=== PATIENT | male | born 1960 | race African-American/Black ===

== ENCOUNTER → 2016-07-06 | Outpatient (CLI) | payer OTHER ==
[~2016-07-06] VITALS: Ht 177.8 cm; Wt 111.1 kg
[~2016-07-06] MED LIST: ARTIFICIAL TEA1 EACH OP; ASPIR 8181 MG PO; CARBIDOPA-LEVO1 EAC2 PO; CLEOCIN HCL150 MG PO; COLACE100 MG PO; DENIES; DOLOPHINE HCL10 MG PO; DOXYCYCLINE 10100 MG PO; EYE OPHTHALMIC; FERREX 150 FORT1 CAP PO; FLEXERIL PO; GONAK OPHTHALMIC; IBUPROFEN 600600 M1 PO; LASIX 40 MG TAB40 M2 PO; LEVAQUIN 500 M500 M2 PO; METHADOSE10 MG PO; METOLAZONE 5 MG5 MG PO; MIRALAX17 GM PO; MORPHINE SULFAT15 MG PO; NEURONTIN 300300 M1 PO; NORCO 5-325 TA1 EACH PO; OXYCODONE HCL 55 MG PO; OXYCODONE HCL10 MG PO; PERCOCET 10-321 EACH PO; PERCOCET 5-3251 EACH PO; PERCOCET PO; REFRESH OPTIVE1 EACH OP; REFRESH TEARS15 ML; REFRESH TEARS15 ML OP; SENNA PO; SILVADENE20 GM TP; SSD CREAM 1% 5050 GM TOP; TYLENOL325 MG PO
--- NOTE | ~2016-07-06 | HPC ---
[facility] [place] [address] PAIN MANAGEMENT CONSULTATION Name: PANCHO STILL Room #: REG TIANNA Andrea#: [id number] Admission: 07/06/16 Attend Phys: Dodie Ovalles MD Discharge: Date of : 60 Report #: [id number] THIS REPORT FOR: //name// CC: [facility] physician/PCP Patrick Fernandez MD DATE OF SERVICE: 07/06/2016 FOLLOWUP COMPLAINT: "I fell in the bathroom." FOLLOWUP HISTORY: The patient is a 56-year-old gentleman who has been followed in the pain clinic because of chronic pain in his lower extremities with swelling and inflammation. The patient has been followed in the wound clinic because of lymphedema. He finds that ambulation and activity can be quite problematic. He feels that his current regimen of OxyIR 10 mg 1 p.o. t.i.d. has been quite helpful. He also finds that OxyIR 5 mg tablets have been helpful as well. He continues to require assistance at home. He ambulates in a wheelchair. The patient states that he stood up in the bathroom and lost his balance. He fell backwards and hit his back. Imaging of the back area showed a compression fracture. He feels that things are going reasonably well at this juncture, but still has some pain and discomfort in this area secondary to that recent trauma. PHYSICAL EXAMINATION: GENERAL: The patient is alert. EXTREMITIES: He continues to have significant swelling in his lower extremities, left and right. There is evidence of lymphedema. He states that he continues to be followed by the wound care facility. IMPRESSION: 1. Chronic ulcers bilaterally in the lower extremities. 2. Lymphedema, chronic. 3. History of venous insufficiency. 4. Recent fall with a compression fracture in the lumbar area. RECOMMENDATIONS: We discussed treatment options with the patient. At this juncture, we will continue with his current medical regimen. A script for oxycodone 10 mg tablets 1 p.o. t.i.d. and OxyIR 5 mg 1 tablet p.r.n. were dispensed. The patient continues with his usual medications as well. We have recommended that the patient get a bicycle helmet. He should consider wearing this at home when he is up and when he feels somewhat stable. He should consider wearing it, especially when in the bathroom. There are numerous hard surfaces on which to fall. He states that that was a good idea and that he would get a helmet and wear it during those [place] [address] PAIN MANAGEMENT CONSULTATION Name: PANCHO STILL Room #: REG CL Emre#: [id number] Admission: 07/06/16 Attend Phys: Dodie Ovalles MD Discharge: Date of : 60 Report #: [id number] We would like to thank you for letting us participate in his care. We hope he continues to improve. <ELECTRONICALLY SIGNED> By: Dodie Ovalles MD 07/24/16 1018 1233 1744 Dodie Ovalles MD /nt
[2016-07-06 08:45] VITALS: BP 133/81
== END | disposition home or self-care (01) ==
LOC: PAIN 07-03 07:13
DX: L97.919 Non-pressure chronic ulcer of unspecified part of right lower leg with unspecified severity (principal); L97.929 Non-pressure chronic ulcer of unspecified part of left lower leg with unspecified severity; I89.0 Lymphedema, not elsewhere classified; Z87.81 Personal history of (healed) traumatic fracture; Z86.718 Personal history of other venous thrombosis and embolism

== ENCOUNTER → 2016-10-05 | Outpatient (CLI) | payer OTHER ==
[~2016-10-05] VITALS: Ht 177.8 cm; Wt 111.1 kg
--- NOTE | ~2016-10-05 | HPC ---
[facility] [place] [address] [address] PAIN MANAGEMENT CONSULTATION Name: PANCHO STILL [id number] Admission: 10/05/16 Attend Phys: Dodie Ovalles MD Discharge: Date of : 60 Report #: [id number] THIS REPORT FOR: //name// CC: [facility] physician/PCP Patrick De León III DO Dodie Hayes MD DATE OF SERVICE: 10/05/2016 FOLLOWUP COMPLAINT: Things are going pretty good. FOLLOWUP HISTORY: The patient is a 56-year-old gentleman who has a misfortune of having Parkinson's disease. He is almost wheelchair bound. He finds that the OxyIR continue to be helpful. He continues to work with the wound clinic to help with his lymphedema in the lower extremities. He feels that the OxyIR 10 mg tablets are helpful. He feels that he would like to keep this amount of OxyIR the same, but instead of having 10 mg tablets he would like to have more of them in the 5 mg range. He feels that that is more beneficial for the level of activity he is participating in. PHYSICAL EXAMINATION: GENERAL: The patient is in a wheelchair. Blood pressure 152/96, pulse 79, respiratory rate 16, room air saturation is 99%. Height is 5 feet 10 inches, weight 111 kilograms, BMI is 35.2. IMPRESSION: 1. Chronic ulcers bilateral in the lower extremities with lymphedema, followed by the wound clinic. 2. He feels that his head is getting more difficult to control. Oftentimes, the neck muscles get relaxed - we discussed the possibility of a soft support around his neck. We explained that neck supports could, over a period of time, worsen the condition because if you wear them too long muscles start to weaken and would possibly exacerbate his problem. He would give it some thought. 3. History of venous insufficiency. 4. History of fall in June with resultant of a compression fracture in the lumbar area. RECOMMENDATIONS: We have written the patient's oxycodone. We will provide a total of 40 mg OxyIR 1 tablet p.r.n. q. 6 hours as well as an OxyIR 10 mg 1 p.o. b.i.d. to t.i.d. p.r.n. for a total of 70. We would like to thank you for letting us participate in his care. We hope he continues to improve. By: 1255 1744 Dodie Ovalles MD /alexandro
[2016-10-05 09:58] VITALS: BP 152/96
== END ==
LOC: PAIN 06:46
DX: L97.829 Non-pressure chronic ulcer of other part of left lower leg with unspecified severity (principal); L97.819 Non-pressure chronic ulcer of other part of right lower leg with unspecified severity; I87.2 Venous insufficiency (chronic) (peripheral); Z91.81 History of falling

== ENCOUNTER 2016-10-24 09:43 | Emergency (ER) | payer OTHER ==
[~2016-10-24] VITALS: Ht 177.8 cm; Wt 111.1 kg
--- NOTE | ~2016-10-24 | EKG ---
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
[2016-10-24 10:21] LABS: ABSOLUTE NEUTROPHILS 2.5 thou/uL (1.4-8.2); EOSINOPHILS 2.7 % (0.0-3.0); HEMATOCRIT 39.9 % (42.0-52.0); HEMOGLOBIN 13.2 gm/dL (14.0-18.0); LYMPHOCYTES 32.1 % (24.0-44.0); MCH 28.5 pg (26.0-34.0); MCV 86.5 fL (80.0-100.0); MONOCYTES 10.2 % (1.0-8.0); PLATELET COUNT 218 thou/uL (150-400); RBC 4.62 mil/uL (4.50-6.00); RDW 15.4 % (10.5-14.5); WBC 4.6 thou/uL (4.0-11.0)
[2016-10-24 10:22] LABS: MANUAL DIFF NO
[2016-10-24 10:24] LABS: ANION GAP 5 mmol/L (7-16); BUN 6 mg/dL (7-18); CALCIUM 8.5 mg/dL (8.5-10.1); CHLORIDE 107 mmol/L (98-107); CO2 28 mmol/L (21-32); CREATININE 0.9 mg/dL (0.7-1.3); GLUCOSE 86 mg/dL (74-106); SODIUM 140 mmol/L (136-145)
[2016-10-24 10:27] LABS: POTASSIUM 4.6 mmol/L (3.5-5.1)
[2016-10-24 10:31] LABS: ALBUMIN 2.9 g/dL (3.4-5.0); ALKALINE PHOSPHATASE 80 U/L (46-116); SGOT 23 U/L (15-37); SGPT 19 U/L (30-65); TOTAL BILIRUBIN 0.5 mg/dL (<0.1-1.0); TOTAL PROTEIN 7.3 g/dL (6.4-8.2); TROPONIN-I < 0.04 ng/mL (<0.04-0.07)
[2016-10-24 13:16] LABS: URINE BILIRUBIN NEGATIVE (Negative); URINE BLOOD TRACE (Negative); URINE COLOR YELLOW; URINE GLUCOSE-RANDOM* NEGATIVE (Negative); URINE KETONES NEGATIVE (Negative); URINE NITRITE NEGATIVE (Negative); URINE PROTEIN (DIPSTICK) NEGATIVE (Negative); URINE UROBILINOGEN 0.2 E.U./dl (0.2-1.0)
[2016-10-24] MEDS ORDERED: PERCOCET PO ×2 (13:24→13:33)
== END 2016-10-24 14:00 | disposition home or self-care (01) ==
LOC: ER 09:43
PROVIDERS: Physician Assistant
DX: S39.012A Strain of muscle, fascia and tendon of lower back, initial encounter (principal); R53.1 Weakness; W06.XXXA Fall from bed, initial encounter; Y93.89 Activity, other specified; Y92.89 Other specified places as the place of occurrence of the external cause; Y99.8 Other external cause status

== ENCOUNTER → 2016-11-16 | Outpatient (CLI) | payer OTHER ==
[~2016-11-16] VITALS: Ht 177.8 cm; Wt 111.1 kg
--- NOTE | ~2016-11-16 | HPC ---
[facility] [address] [address] PAIN MANAGEMENT CONSULTATION Name: PANCHO STILL Room #: REG TIANNA MorrisLamontMeghannLamont#: [id number] Admission: 11/16/16 Attend Phys: Dodie Ovalles MD Discharge: Date of : 60 Report #: [id number] THIS REPORT FOR: //name// CC: Patrick Issa DATE OF SERVICE: 11/16/2016 FOLLOWUP HISTORY: The patient is a very pleasant gentleman who is 56 years old. He suffers as you recall from Parkinson's disease. He finds that his medications of OxyIR have been quite helpful. It enables him to move and get around with reasonable comfort compared to the pain he was experiencing prior to its use. He states that the pain medications were not causing any problems with his mentation. He has not had any problem with his bowel or bladder as a result of its use. He feels that things are helped. He continues to be wheelchair bound. He has not fallen since we saw him last. PHYSICAL EXAMINATION: Blood pressure is 138/91, pulse 79, respiratory rate 16, room air saturation 97%. Height 5 feet 10 inches, weight 111 kilograms. BMI is 35.2. The patient does need help with standing. He ambulates in his motorized wheelchair. IMPRESSION: 1. Chronic lymphedema in the lower extremities. The patient states that he is not going to the wound clinic at this point, things have improved. 2. History of venous insufficiency. 3. 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 4. History of a fall in June with compression fracture in the lumbar area. RECOMMENDATIONS: A script for the patient's OxyContin has been written. He will continue with his use of oxycodone IR 10 mg 1 p.o. b.i.d. to t.i.d. He will call us if he has any problems with his medications. We would like to thank you for letting us participate in his care. A script for OxyIR 5 mg 1 p.o. q. 6 hours p.r.n. has also been written. We would like to thank you for letting us participate in his care. We hope he continues to improve. By: [id number] 2347 Dodie Ovalles MD /alexandro
[2016-11-16 08:21] VITALS: BP 138/91
== END | disposition home or self-care (01) ==
LOC: PAIN 06:32
DX: G20 Parkinson's disease (principal); I89.0 Lymphedema, not elsewhere classified; M48.56XG Collapsed vertebra, not elsewhere classified, lumbar region, subsequent encounter for fracture with delayed healing

== ENCOUNTER 2016-11-29 06:50 | Inpatient (IN) | payer OTHER ==
[~2016-11-29] VITALS: Ht 177.8 cm; Wt 111.1 kg
--- NOTE | ~2016-11-29 | HC ---
[facility] [place] [address] CONSULTATION Name: PANCHO STILL Room #: 539-P [facility] IN M.R.#: [id number] Admission: 11/30/16 Attend Phys: Cecil Krueger MD Discharge: Date of : 60 Report #: [id number] THIS REPORT FOR: //name// CC: Cecil Garrett DATE OF SERVICE: 11/30/2016 HISTORY OF PRESENT ILLNESS: This is a 56-year-old male patient who is familiar to our service and has been followed by Dr. Hayes in the past. He was admitted to the hospital with persistent and worsening swelling of his lower extremities. He has a history of Parkinson's disease and bilateral lower extremity lymphedema. We have been asked to see him for ongoing evaluation and treatment of that. He denies any open ulceration at this time. PAST MEDICAL HISTORY: Positive for history of Parkinson's disease. He has a history of eyffydag-tg-wzcipq protein calorie malnutrition and chronic lymphedema. MEDICATIONS: Include oxycodone, carbidopa/levodopa, enoxaparin, furosemide, hydrocodone, oxycodone, fentanyl, ondansetron. ALLERGIES: To MORPHINE. SOCIAL HISTORY: Negative for alcohol or tobacco use. FAMILY HISTORY: Noncontributory. REVIEW OF SYSTEMS: CONSTITUTIONAL: No fever, chills, weight loss. NEUROLOGICAL: The patient denies any new changes. He does have moderate to severe Parkinson's. ENT: The patient denies earache, nasal drainage, sore throat. CARDIOVASCULAR: The patient denies chest pain, palpitations, diaphoresis. PULMONARY: The patient denies cough or shortness breath. GASTROINTESTINAL: The patient denies nausea or abdominal pain. ORTHOPEDIC: Denies pain, but does have swelling to both lower extremities. Other systems and a 12-point review of systems are negative other than that mentioned in the history of present illness. PHYSICAL EXAMINATION: VITAL SIGNS: At this time include pulse rate 91, respiration of 18, blood pressure 114/81, temperature 98.6, pulse oximetry 98% on room air. GENERAL: This is a chronically ill-appearing male patient, appears in minimal distress. HEAD: Normocephalic. [facility] [address] [place] [address] CONSULTATION Name: PANCHO STILL Room #: 539-P [facility] IN .R.#: [id number] Admission: 11/30/16 Attend Phys: Cecil Krueger MD Discharge: Date of : 60 Report #: [id number] NOSE AND THROAT: Clear. NECK: Supple. LUNGS: Clear. ABDOMEN: Soft. EXTREMITIES: Demonstrate 3+ edema to both lower extremities. There are no open ulcerations, but a little bit of crusting on the anterior portions of the ankles bilaterally. There is no erythema. No overt sign of gross infection at this time. CLINICAL IMPRESSION: 1. Worsening lymphedema, bilateral lower extremities. 2. Moderate to severe Parkinson's disease. RECOMMENDATION: At this point in time, we will continue with compression stockings for now. I have asked Physical Therapy/Occupational Therapy to see him for lymphedema therapy and compression bandaging. The patient is agreeable with this plan of care. I do appreciate being asked to see him in consultation. <ELECTRONICALLY SIGNED> By: Pérez Myers MD 12/02/16 1205 1506 1854 Pérez Myers MD /nt
[2016-11-29 06:53] VITALS: BP 167/99
[2016-11-29 08:03] LABS: HEMATOCRIT 36.7 % (42.0-52.0); HEMOGLOBIN 12.1 gm/dL (14.0-18.0); MCH 28.6 pg (26.0-34.0); MCV 86.6 fL (80.0-100.0); RBC 4.24 mil/uL (4.50-6.00); RDW 14.5 % (10.5-14.5); WBC 3.6 thou/uL (4.0-11.0)
[2016-11-29 08:16] LABS: CALCIUM 8.6 mg/dL (8.5-10.1); CREATININE 0.9 mg/dL (0.7-1.3); POTASSIUM 3.9 mmol/L (3.5-5.1)
[2016-11-29 08:21] LABS: APTT 27.8 Seconds (24.5-32.8); PROTIME 10.6 Seconds (9.3-11.4)
[2016-11-29 08:27] LABS: ALBUMIN 2.8 g/dL (3.4-5.0); TOTAL BILIRUBIN 0.4 mg/dL (<0.1-1.0)
[2016-11-29 09:53] VITALS: BP 165/96
[2016-11-29 15:32] VITALS: BP 118/84
[2016-11-29 19:35] VITALS: BP 119/68
[2016-11-30 04:28] VITALS: BP 133/81
[2016-11-30 05:45] LABS: HEMATOCRIT 37.3 % (42.0-52.0); HEMOGLOBIN 12.4 gm/dL (14.0-18.0); MCH 28.9 pg (26.0-34.0); MCHC 33.4 g/dL (28.0-37.0); MCV 86.6 fL (80.0-100.0); RBC 4.31 mil/uL (4.50-6.00); RDW 14.6 % (10.5-14.5); WBC 4.4 thou/uL (4.0-11.0)
[2016-11-30 05:57] LABS: CALCIUM 8.7 mg/dL (8.5-10.1); POTASSIUM 3.4 mmol/L (3.5-5.1)
[2016-11-30 07:29] VITALS: BP 114/81
[2016-11-30 15:50] VITALS: BP 129/74
[2016-11-30 16:14] VITALS: BP 129/74
[2016-11-30 19:24] VITALS: BP 110/70
[2016-12-01 04:00] LABS: CALCIUM 8.5 mg/dL (8.5-10.1); CREATININE 1.1 mg/dL (0.7-1.3); POTASSIUM 3.6 mmol/L (3.5-5.1)
[2016-12-01 06:17] VITALS: BP 131/78
[2016-12-01 15:43] VITALS: BP 113/73
[2016-12-01 19:28] VITALS: BP 108/75
[2016-12-02 03:50] LABS: CALCIUM 8.8 mg/dL (8.5-10.1); CREATININE 1.1 mg/dL (0.7-1.3); POTASSIUM 3.7 mmol/L (3.5-5.1)
[2016-12-02 04:40] VITALS: BP 114/77
[2016-12-02 07:20] VITALS: BP 131/63; BP 133/83
[2016-12-02 15:40] VITALS: BP 125/79
[2016-12-02 19:08] VITALS: BP 120/80
[2016-12-03 02:35] VITALS: BP 100/68
[2016-12-03 05:19] LABS: CALCIUM 8.9 mg/dL (8.5-10.1); CREATININE 1.1 mg/dL (0.7-1.3); POTASSIUM 4.4 mmol/L (3.5-5.1)
[2016-12-03 07:25] VITALS: BP 122/73
[2016-12-03 15:00] VITALS: BP 124/84
[2016-12-03 19:21] VITALS: BP 116/74
[2016-12-04] VITALS (7 sets, daily range): BP systolic 113–130; BP diastolic 65–79
[2016-12-04 04:45] LABS: HEMATOCRIT 39.8 % (42.0-52.0); HEMOGLOBIN 13.2 gm/dL (14.0-18.0); MCH 28.5 pg (26.0-34.0); MCHC 33.1 g/dL (28.0-37.0); MCV 86.2 fL (80.0-100.0); RBC 4.62 mil/uL (4.50-6.00); RDW 14.5 % (10.5-14.5); WBC 4.2 thou/uL (4.0-11.0)
[2016-12-04 04:56] LABS: CALCIUM 8.8 mg/dL (8.5-10.1); POTASSIUM 4.3 mmol/L (3.5-5.1)
[2016-12-04] MEDS ORDERED: OXYCONTIN10 M1 PO (13:14)
[2016-12-04] MEDS ORDERED: OXYCODONE HCL10 MG PO (13:14)
[2016-12-04] MEDS ORDERED: LASIX 40 MG TAB40 M1 PO (13:14)
[2016-12-04] MEDS ORDERED: POTASSIUM20 PO (13:14)
== END 2016-12-04 17:42 | disposition home health service (06) | DRG 606 ==
LOC: ER 06:50 → EROBS 08:55 → 5S 10:00
PROVIDERS: Emergency Medicine; Hospitalist; Internal Medicine Endocrinology, Diabetes & Metabolism
DX: I89.0 Lymphedema, not elsewhere classified (principal); E43 Unspecified severe protein-calorie malnutrition; G20 Parkinson's disease; G89.29 Other chronic pain; K59.03 Drug induced constipation; T40.605A Adverse effect of unspecified narcotics, initial encounter; E88.09 Other disorders of plasma-protein metabolism, not elsewhere classified; Z96.642 Presence of left artificial hip joint; Z68.35 Body mass index [BMI] 35.0-35.9, adult; Z95.820 Peripheral vascular angioplasty status with implants and grafts; Z88.5 Allergy status to narcotic agent; Y92.89 Other specified places as the place of occurrence of the external cause
CPT/HCPCS: 10785

== ENCOUNTER → 2016-12-28 | Outpatient (CLI) | payer OTHER ==
[~2016-12-28] VITALS: Ht 177.8 cm; Wt 113.4 kg
[~2016-12-28] MED LIST changes: +K-DUR 20 MEQ T20 MEQ PO; +LASIX 40 MG TAB40 M1 PO; +LASIX 80 MG TAB80 MG PO; +OXYCONTIN10 M1 PO; +POTASSIUM20 PO; +ROXICODONE5 MG PO
[2016-12-28 08:30] VITALS: BP 148/102
== END | disposition home or self-care (01) ==
LOC: PAIN 06:49
DX: I89.0 Lymphedema, not elsewhere classified (principal); G89.29 Other chronic pain; I87.2 Venous insufficiency (chronic) (peripheral); G20 Parkinson's disease; G25.89 Other specified extrapyramidal and movement disorders; Z87.81 Personal history of (healed) traumatic fracture; Z91.81 History of falling; Z88.8 Allergy status to other drugs, medicaments and biological substances; Z79.899 Other long term (current) drug therapy; Z98.890 Other specified postprocedural states

== ENCOUNTER 2017-01-11 12:55 | Inpatient (IN) | payer OTHER ==
[~2017-01-11] VITALS: Ht 177.8 cm; Wt 100.2 kg
--- NOTE | ~2017-01-11 | HC ---
[facility] [place] [address] CONSULTATION Name: PANCHO STILL Room #: 534-P ADM IN M.R.#: [id number] Admission: 01/11/17 Attend Phys: Rico Taylor MD Discharge: Date of : 60 Report #: [id number] THIS REPORT FOR: //name// CC: Rico Garrett HISTORY OF PRESENT ILLNESS: The patient is a 57-year-old -Bah[place] male with a history of Parkinson's disease, bilateral lymphedema, lower extremity blistering, admitted with increased swelling. He was placed on Lasix IV b.i.d. He has bilateral lower extremity wounds with wound care involved. He was admitted with inability to ambulate. We are seeing him in rehabilitation medicine consultation. PAST MEDICAL HISTORY: Includes the Parkinson's disease. He had a prior left femoral neck fracture with hemiarthroplasty in 2015, history of bilateral stents of his lower extremities in 2016. MEDICATIONS: Please see the full medication listing. SOCIAL HISTORY: He lives in a house with his mother. He lives in the basement. There is a full flight of steps to get down there, but once he is down, he can stay on that one floor. There are some neighbors that will help him get down those steps. His sister comes over daily and helps him with some of the dressing and helps him with shower. He uses a cane versus walker. REVIEW OF SYSTEMS: Did not offer any current complaints of chest pain, shortness of breath, or abdominal discomfort. He has the lower extremity swelling and edema. He notes that he move slowly with his Parkinson's disease. Did not offer any complaints of bowel or bladder changes. Notes that he has a plate in his skull and apparently had a prior head injury in the remote past. PHYSICAL EXAMINATION: GENERAL: He is a pleasant 57-year-old -Bahamian male, in no obvious distress. VITAL SIGNS: Temp 98, pulse 88, respirations 18, blood pressure is 96/65. NEUROLOGIC: He does have a well-healed his car over his scalp. He may have some evidence of masked facies. Facies otherwise appeared symmetric. EXTREMITIES: Upper extremities, he has cogwheeling in bilateral wrists and elbows. Strength is a grade 4-/5-3+/5. DTRs are trace to 1. In his lower extremities, he has significant lower extremity edema. Bilateral lower extremities are wrapped from the knees distally. Some bradykinesia is noted. Strength appears to be a grade 4- to 3+/5. DTRs are decreased. He was contact guard for basic transfers. Once up with a walker, he tends to to the left. In OT, he is needing mod assist with basic functional tasks. The therapist did not indicate any actual festination, but he does move slowly with his Parkinson's disease. [address] [address] CONSULTATION Name: PANCHO STILL Room #: 534-P [facility] IN M.R.#: [id number] Admission: 01/11/17 Attend Phys: Rico Taylor MD Discharge: Date of : 60 Report #: [id number] ASSESSMENT: A 57-year-old -Bahamian male with the following problem list: 1. Parkinson's disease. 2. Bilateral lower extremity lymphedema. 3. Bilateral lower extremity wounds with blistering. 4. Significant functional mobility and activities of daily living deficits. 5. Prior left hip hemiarthroplasty in 2014. 6. Prior bilateral lower extremity stents in 2015. 7. Remote history of a head injury. PLAN: We are assessing regarding his rehabilitation needs and we will be glad to follow along with you. ADDENDUM: He does have a prior history of chronic pain syndrome and also has had a prior history of opioid-induced constipation. By: 1214 1243 Jaime Hogan MD /nt
--- NOTE | ~2017-01-11 | 2DMMODE ---
[place] [address] [facility] [place] [address] 2 D/M-MODE ECHOCARDIOGRAM Name: TESSYPANCHOBELINDA HASSANIP Room #: 534-P ADM IN M.R.#: [id number] Admission: 01/11/17 Attend Phys: Rico Taylor, Discharge: Date of : 60 Date of Service: 01/13/17 1556 Report #: [id number] THIS REPORT FOR: //name// APPROVED REPORT Study performed: 01/12/2017 09:32:02 EXAM: Comprehensive 2D, Doppler, and color-flow Echocardiogram Patient Location: Bedside Room #: 534 Status: on-call Other Information Study Quality: Adequate Indications Bilateral LE Swelling 2D Dimensions LVEF(%): 54.90 (>50%) IVSd: 12.79 (7-11mm) LVOT Diam: 20.00 (18-24mm) LVDd: 39.42 mm PWd: 13.42 (7-11mm) Ascending Ao: 32.55 (22-36mm) LVDs: 28.36 (25-40mm) Aortic Root: 30.79 mm LV Single Plane 4CH: 40.37 % Luong's LVEF: 54.90 % Volumes Left Atrial Volume (Systole) Single Plane 4CH: 48.79 mL Single Plane 2CH: 46.41 mL LA ESV Index: 22.00 mL/m2 Aortic Valve AoV Peak Samuel.: 1.33 m/s AO Peak Gr.: 8.22 mmHg LVOT Max P.56 mmHg LVOT Max V: 0.94 m/s IRWIN Vmax: 2.27 cm2 Mitral Valve E/A Ratio: 1.5 MV Decel. Time: 187.04 ms MV E Max Samuel.: 0.82 m/s MV A Samuel.: 0.53 m/s MV PHT: 54.24 ms [facility] [place] [address] 2 D/M-MODE ECHOCARDIOGRAM Name: TESSYPANCHO DANISHA Room #: 534-P [facility] IN M.R.#: [id number] Admission: 01/11/17 Attend Phys: Rico Taylor, Discharge: Date of : 60 Date of Service: 01/13/17 1556 Report #: [id number] IVRT: 64.59 ms TDI E/Lateral E': 9.11 E/Medial E': 13.67 Medial E' Samuel.: 0.06 m/s Lateral E' Samuel.: 0.09 m/s Pulmonary Valve PV Peak Samuel.: 1.24 m/s PV Peak Gr.: 6.13 mmHg Left Ventricle The left ventricle is normal size. There is normal LV segmental wall motion. Mild concentric left ventricular hypertrophy. Left ventricular systolic function is normal. The left ventricular ejection fraction is within the normal range. LVEF is 55-60%. The left ventricular diastolic function is normal. Right Ventricle The right ventricle is normal size. The right ventricular systolic function is normal. Atria The left atrium size is normal. The right atrium size is normal. Aortic Valve The aortic valve is normal in structure. No aortic regurgitation is present. There is no aortic valvular stenosis. Mitral Valve The mitral valve is normal in structure. No mitral regurgitation. No evidence of mitral valve stenosis. Tricuspid Valve The tricuspid valve is normal in structure. There is no tricuspid valve regurgitation noted. Pulmonic Valve The pulmonary valve is normal in structure. Trace pulmonic regurgitation. Great Vessels The aortic root is normal in size. The inferior vena cava is [place] well [place] [address] 2 D/M-MODE ECHOCARDIOGRAM Name: PANCHO STILL DANISHA Room #: 534-P [facility] IN .R.#: [id number] Admission: 01/11/17 Attend Phys: Rico Taylor, Discharge: Date of : 60 Date of Service: 01/13/17 1556 Report #: [id number] There is no pericardial effusion. <Conclusion> Left ventricular systolic function is normal. There is normal LV segmental wall motion. LVEF 55-60%. The aortic valve is normal in structure. No aortic regurgitation or stenosis The mitral valve is normal in structure. No mitral regurgitation. Pulmonary artery pressure could not be reliably ascertained There is no pericardial effusion. <ELECTRONICALLY SIGNED> By: Dale Meyer MD, [facility] 01/13/17 1556 1556 1556 Dale Meyer MD, FAC /INF
[2017-01-11 12:57] VITALS: BP 148/88
[2017-01-11 14:38] LABS: ABSOLUTE NEUTROPHILS 2.3 thou/uL (1.4-8.2); BASOPHILS 0.3 % (0.0-2.0); EOSINOPHILS 2.8 % (0.0-3.0); HEMATOCRIT 36.8 % (42.0-52.0); LYMPHOCYTES 30.2 % (24.0-44.0); MCH 28.9 pg (26.0-34.0); MCHC 32.7 g/dL (28.0-37.0); MCV 88.4 fL (80.0-100.0); PLATELET COUNT 244 thou/uL (150-400); POLYS 56.7 % (36.0-66.0); RBC 4.17 mil/uL (4.50-6.00); RDW 14.5 % (10.5-14.5); WBC 4.1 thou/uL (4.0-11.0)
[2017-01-11 14:40] LABS: MANUAL DIFF NO
[2017-01-11 14:46] LABS: CALCIUM 8.9 mg/dL (8.5-10.1)
[2017-01-11 14:53] LABS: ALBUMIN 3.3 g/dL (3.4-5.0); TOTAL BILIRUBIN 0.3 mg/dL (<0.1-1.0); TOTAL PROTEIN 7.6 g/dL (6.4-8.2)
[2017-01-11 16:15] VITALS: BP 160/96
[2017-01-11 18:02] VITALS: BP 168/95
[2017-01-11 18:05] VITALS: BP 150/85
[2017-01-11 18:59] VITALS: BP 177/88
[2017-01-12 01:12] VITALS: BP 136/73
[2017-01-12 03:16] VITALS: BP 147/85
[2017-01-12 04:49] LABS: HEMATOCRIT 34.2 % (42.0-52.0); HEMOGLOBIN 11.4 gm/dL (14.0-18.0); MCH 28.8 pg (26.0-34.0); MCHC 33.2 g/dL (28.0-37.0); MCV 86.6 fL (80.0-100.0); RBC 3.95 mil/uL (4.50-6.00); RDW 14.5 % (10.5-14.5); WBC 5.7 thou/uL (4.0-11.0)
[2017-01-12 05:01] LABS: CALCIUM 8.7 mg/dL (8.5-10.1); CREATININE 0.9 mg/dL (0.7-1.3); POTASSIUM 3.7 mmol/L (3.5-5.1)
[2017-01-12 08:00] VITALS: BP 120/66; BP 125/75
[2017-01-12 17:53] VITALS: BP 121/72
[2017-01-12 19:16] VITALS: BP 120/66
[2017-01-13 03:12] VITALS: BP 128/81
[2017-01-13 09:22] VITALS: BP 115/74
[2017-01-13 16:00] VITALS: BP 88/59
[2017-01-13 18:40] VITALS: BP 108/64
[2017-01-14 02:17] VITALS: BP 125/63
[2017-01-14 07:05] VITALS: BP 96/65
[2017-01-14 10:06] LABS: ABSOLUTE NEUTROPHILS 1.9 thou/uL (1.4-8.2); BASOPHILS 1.1 % (0.0-2.0); EOSINOPHILS 3.7 % (0.0-3.0); HEMATOCRIT 41.5 % (42.0-52.0); LYMPHOCYTES 36.3 % (24.0-44.0); MCH 28.9 pg (26.0-34.0); MCHC 32.9 g/dL (28.0-37.0); MCV 88.1 fL (80.0-100.0); MONOCYTES 10.9 % (1.0-8.0); PLATELET COUNT 265 thou/uL (150-400); RBC 4.71 mil/uL (4.50-6.00); RDW 14.6 % (10.5-14.5)
[2017-01-14 10:15] LABS: CALCIUM 9.5 mg/dL (8.5-10.1); CREATININE 1.2 mg/dL (0.7-1.3); MAGNESIUM 2.1 mg/dL (1.8-2.4)
[2017-01-14 10:24] LABS: MANUAL DIFF NO
[2017-01-14 10:26] LABS: HEMOGLOBIN 13.6 gm/dL (14.0-18.0)
[2017-01-14] MEDS ORDERED: ENOXAPARIN40 MG/0.1 SUBQ (13:27)
== END 2017-01-14 17:30 | DRG 607 ==
LOC: ER 12:55 → 5S 15:35 → EROBS 15:35 → 5S 17:34
PROVIDERS: Internal Medicine; Nurse Practitioner; Physician Assistant
DX: I89.0 Lymphedema, not elsewhere classified (principal); G20 Parkinson's disease; Z96.642 Presence of left artificial hip joint; S81.802A Unspecified open wound, left lower leg, initial encounter; S81.801A Unspecified open wound, right lower leg, initial encounter; X58.XXXA Exposure to other specified factors, initial encounter; R53.81 Other malaise; Z79.899 Other long term (current) drug therapy; Z88.5 Allergy status to narcotic agent; Z87.828 Personal history of other (healed) physical injury and trauma; Y93.89 Activity, other specified; Y92.89 Other specified places as the place of occurrence of the external cause; Y99.8 Other external cause status
CPT/HCPCS: 10086

== ENCOUNTER 2017-01-14 13:59 | Inpatient (IN) | payer OTHER ==
[~2017-01-14] VITALS: Ht 177.8 cm; Wt 95.2 kg
--- NOTE | ~2017-01-14 | H ---
[facility] [place] [address] HISTORY AND PHYSICAL Name: PANCHO STILL Room #: 506-1 [facility] IN M.R.#: [id number] Admission: 01/14/17 Attend Phys: Jaime Hogan MD Discharge: 01/23/17 Date of : 60 Report #: [id number] THIS REPORT FOR: //name// CC: Jaime Garrett DATE OF SERVICE: 01/14/2017 HISTORY OF PRESENT ILLNESS: The patient is a 57-year-old -Fijian male with a history of Parkinson's disease, bilateral lymphedema, lower extremity blistering, who was originally admitted with increased swelling in his lower extremities. He was placed on IV Lasix b.i.d. He has bilateral lower extremity wounds with wound care involved. He was originally admitted with inability to ambulate. He was noted to have significant functional mobility and ADL deficits with his Parkinson's disease and has now been admitted for acute in-hospital inpatient rehabilitation. There are cognitive concerns with speech therapy involvement as well. PAST MEDICAL HISTORY: Includes Parkinson's disease. He has had a prior left femoral neck fracture with hemiarthroplasty in 2015. History of bilateral lower extremity stenting in 2016. MEDICATIONS: Please see the full medication listing. SOCIAL HISTORY: Lives in a house with his mother. He lives in the basement. There is a full flight of steps to get down there, but once he is down there, he can stay on that one floor. There are some neighbors that can help him get down those steps. His sister comes over daily and helps him with some of the dressing and helps him with the shower. He uses a cane versus a walker. REVIEW OF SYSTEMS: No complaints of chest pain, shortness of breath, or abdominal discomfort. He has lower extremity swelling and edema. He has slow movement with his Parkinson's disease. He has had a prior head injury in the remote past and notes he has a plate in his skull. PHYSICAL EXAMINATION: GENERAL: A 57-year-old -Fijian male, in no obvious distress. He was seen earlier today. VITAL SIGNS: Temperature is 98, pulse 88, respirations 18, blood pressure is 96/65. HEENT: He has a well-healed scar over his scalp. Some evidence of masked facies. Facies otherwise appeared symmetric. CHEST: Some decreased breath sounds diffusely. CARDIAC: Sounded regular rate and rhythm. ABDOMEN: Bowel sounds positive, nontender. GENITOURINARY: Deferred. [facility] [address] [place] [address] HISTORY AND PHYSICAL Name: PANCHO STILL Room #: 506-1 [facility] IN [facility].#: [id number] Admission: 01/14/17 Attend Phys: Jaime Hogan MD Discharge: 01/23/17 Date of : 60 Report #: [id number] RECTAL: Deferred. EXTREMITIES: Upper extremities reveal some cogwheeling of both wrists and elbows. Strength is a grade 4- to 3+/5. DTRs are trace to 1. In his lower extremities, he has significant lower extremity edema. Bilateral lower extremities are wrapped from the knees distally. Some bradykinesia was noted. Strength is grade 4- to 3+/5. DTRs were decreased. He does need assistance with basic transfers, moves slowly. He needs the most assistance with the basic transfers. Once up, he will ambulate short distances with the walker with assistance. ASSESSMENT: A 57-year-old -Fijian male with the following problem list: 1. Parkinson's disease. 2. Bilateral lower extremity lymphedema. 3. Bilateral lower extremity wounds with blistering. 4. Significant functional mobility and activities of daily living deficits. 5. Prior left hip hemiarthroplasty in 2014. 6. Prior bilateral lower extremity stenting in 2016. 7. Remote history of head injury. PLAN: The patient is admitted for acute in-hospital inpatient rehabilitation. From a post-admission physician evaluation perspective, there are no relevant changes since the preadmission screening. Please see the above review of prior and current medical and functional conditions and comorbidities. Please see the patient's previous and current functional status. As far as risk of complications, the patient has multiple medical comorbidities as noted above. Initial plan of care involves the interdisciplinary acute inpatient rehabilitation program with the goal of maximizing the patient's functional independence, so that he can hopefully return back to his previous living situation. Measurable functional goals would be for him to become modified independent with transfers, mobility and ADLs and improvement in cognition. The goal is to enable him to return back home with the walker. Prognosis is reasonably good with estimated length of stay at least 1-2 weeks. Potential barriers would include his multiple medical comorbidities and decreased functional status. The patient meets diagnostic criteria for an acute in-hospital inpatient rehabilitation stay. He meets medical necessity criteria. He does have the tolerance for an acute rehab level and has appropriate discharge goals back to the home setting. <ELECTRONICALLY SIGNED> By: Jaime Hogan MD 01/24/17 1350 [id number] 1628 Jaime Hogan MD /nt
--- NOTE | ~2017-01-14 | HC ---
[facility] [place] [address] CONSULTATION Name: PANCHO STILL Room #: 506-1 ADM IN M.R.#: [id number] Admission: 01/14/17 Attend Phys: Jaime Hogan MD Discharge: Date of : 60 Report #: [id number] THIS REPORT FOR: //name// CC: Jaime Jettmez DATE OF SERVICE: 01/19/2017 NEUROBEHAVIORAL STATUS EXAM ATTENDING PHYSICIAN: Jaime Hogan M.D. TOOLMAKER GRADE THREE: Chau Frost, PhD CLINICAL PRESENTATION: The patient is a 57-year-old -[place] male admitted to the rehabilitation unit at [facility] for comprehensive inpatient rehabilitation program to improve functional mobility, activities of daily living and self-care and mental status secondary to impairment from Parkinson disease with bilateral lower extremity lymphedema. The patient was living at home with the assistance of his mother and sister when he experienced deterioration in functioning. His medical history includes a prior left femoral neck fracture with hemiarthroplasty, bilateral lower extremity stenting in 2016 and as indicated Parkinson disease. A neuropsychological consultation was requested to provide assistance in the assessment of cognitive and emotional status and to provide recommendations and services. Prior to this admission, he was living at home with his mother and sister. He required their assistance to maintain community dwelling. He is never and has no children. The patient has a 10th grade education. 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 The patient denies a history of treatment for depression or anxiety. TECHNIQUES UTILIZED: Clinical interview, review of medical records, staff consultation and behavioral observation, mini mental status exam 2 standard version and clock drawing. EXAMINATION FINDINGS: The patient was alert and cooperative with the assessment. He accurately described events surrounding his admission. There is no evidence of aphasia. His thoughts are logical and goal oriented. There is no evidence of thought disorder. He does not report visual or auditory hallucinations. The patient denies subjective anxiety or depression. However, he has decreased insight into his cognitive condition. He does not report difficulty with memory, word finding or concentration. His performance on the MMSE 2 brief version was within normal limits with a raw [facility] [address] [place] [address] CONSULTATION Name: TESSYPANCHOBELINDA RAMAN Room #: 506-1 [facility] IN ..#: [id number] Admission: 01/14/17 Attend Phys: Jaime Hogan MD Discharge: Date of : 60 Report #: [id number] score of 15 of 16. He was 3/3 for initial registration, 4/5 for orientation to time, 5/[address] and 3/3 for immediate recall of 3 items after a brief time delay and distraction. His performance on the MMSE 2 standard version reveals more severe impairment with a raw score of 1/5 for serial 7's, inability to copy a simple geometric design or write a sentence. His naming and auditory comprehension appeared within normal limits. He could also read and follow a simple command. However, he is unable to copy a simple geometric design and could not draw a clock or place the hands at appropriate location. DIAGNOSTIC IMPRESSION: Major neurocognitive disorder (dementia), due to Parkinson disease, without behavior disorder, mild severity. RECOMMENDATIONS: The patient will require supervision and structure to maintain safety. He will need assistance in the management of medication, nutrition and financial decision making. Auditory and verbally mediated functioning is well maintained. 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 Thank you very much for allowing me to provide the consultation on this patient. <ELECTRONICALLY SIGNED> By: Chau Frost, PhD 01/20/17 1526 1347 1830 Chau Frost, PhD /nt
--- NOTE | ~2017-01-14 | PLAN ---
[facility] [place] [address] REHAB UNIT PLAN OF CARE Name: PANCHO STILL Room #: 506-1 [facility] IN M.R.#: [id number] Admission: 01/14/17 Attend Phys: Jaime Hogan MD Discharge: 01/23/17 Date of : 60 Report #: [id number] THIS REPORT FOR: //name// CC: Jaime Garrett DATE OF SERVICE: 01/16/2017 The patient is seen back today in followup. He is in no distress. Last recorded temperature is 97.5, pulse 75, respirations 16, blood pressure 106/70. No focal calf swelling. His lower extremity edema appears to be improving. He continues with the Reyes catheter in place and has been on Lasix. He is working in therapies with transfers, contact guard and is ambulating 250 feet contact guard with a front-wheeled walker. He is working on stairs. In occupational therapy, upper body dressing is max assist with lower body dressing max assist. He is dependent for socks and hose. In speech therapy, he does have mild comprehensive deficits. ASSESSMENT: 1. Parkinson disease. 2. Bilateral lower extremity lymphedema. 3. Bilateral lower extremity wounds with blistering. 4. Significant functional mobility and activities of daily living deficits. 5. Prior left hip hemiarthroplasty in 2014. 6. Prior bilateral lower extremity stenting in 2015. 7. Remote history of head injury. PLAN: The overall plan of care is based on the preadmission screen, post-admission physician evaluation and information garnered from therapy assessments. 1. Estimated length of stay is probably 1-2 weeks. 2. Medical prognosis is reasonably good. 3. Anticipated interventions includes the interdisciplinary acute inpatient rehabilitation program with PT, OT, speech, rehab nursing, assisting regarding medication management, skin care prophylaxis, bowel and bladder issues and nursing education. The compliance consultant physicians are involved as well as case management. 4. Anticipated functional outcomes would be for the patient to become modified independent with the walker level for basic mobility and to improve as far as his ADLs and his comprehension, so that he can return back to the home setting. 5. Discharge destination would be back home where he lives with his mother. 6. Expected therapy by discipline includes PT and OT and speech 1 hour per day each five days a week throughout the duration of the acute inpatient [address] [address] REHAB UNIT PLAN OF CARE Name: PANCHO STILL Room #: 506-1 [facility] IN [facility]#: [id number] Admission: 01/14/17 Attend Phys: Jaime Hogan MD Discharge: 01/23/17 Date of : 60 Report #: [id number] rehabilitation stay. We may be able to taper some of the speech in favor of more OT and PT. <ELECTRONICALLY SIGNED> By: Jaime Hogan MD 01/24/17 1350 0900 1025 Jaime Hogan MD /alexandro
--- NOTE | ~2017-01-14 | HC ---
[facility] [place] [address] CONSULTATION Name: PANCHO STILL Room #: 506-1 ADM IN M.R.#: [id number] Admission: 01/14/17 Attend Phys: Jaime Hogan MD Discharge: Date of : 60 Report #: [id number] THIS REPORT FOR: //name// CC: Jaime Garrett DATE OF SERVICE: 01/14/2017 CHIEF COMPLAINT: Bilateral lower extremity lymphedema. HISTORY OF PRESENT ILLNESS: This is a 57-year-old male patient with whom I am familiar from previous hospitalization who was admitted to the hospital with bilateral lower extremity lymphedema. He is in relatively good spirits today and I have been asked to see him with regard to ongoing wound care. PAST MEDICAL HISTORY: Positive for history of Parkinson's disease and bilateral lymphedema. He has a history of previous falls, hypoalbuminemia, umbilical hernia and weakness. ALLERGIES: To MORPHINE. MEDICATIONS: Include hydrocodone, oxycodone, furosemide, carbidopa/levodopa, potassium supplementation. SOCIAL HISTORY: Negative for alcohol or tobacco use. FAMILY HISTORY: Noncontributory. REVIEW OF SYSTEMS: CONSTITUTIONAL: Denies fever, chills, weight loss. NEUROLOGICAL: The patient has focal weakness. ENT: The patient denies earache, nasal drainage, sore throat. CARDIOVASCULAR: The patient denies chest pain, palpitations, diaphoresis. PULMONARY: The patient denies cough, shortness of breath. GASTROINTESTINAL: The patient denies nausea, abdominal pain. ORTHOPEDIC: The patient does note swelling and some discomfort in bilateral lower extremities. Other systems in a 12-point review of systems are negative. PHYSICAL EXAMINATION: VITAL SIGNS: At this time include pulse 88, respiration of 18, blood pressure 96/65, temperature 98.0. GENERAL: This is a chronically ill-appearing male patient who appears to be in minimal distress. HEENT: Head normocephalic. Nose and throat clear. NECK: Supple. LUNGS: Clear. [address] [address] CONSULTATION Name: PANCHO STILL Room #: 506-1 ADM IN M.R.#: [id number] Admission: 01/14/17 Attend Phys: Jaime Hogan MD Discharge: Date of : 60 Report #: [id number] HEART: . ABDOMEN: Soft. Bowel sounds present. LOWER EXTREMITIES: Demonstrate easily palpable distal pulses. He has 3+ edema bilaterally. No open ulceration at this time. CLINICAL IMPRESSION: Bilateral lower extremity lymphedema. RECOMMENDATIONS: We will recommend bilateral lymphedema therapy with compression bandaging. He is agreeable to this and has undergone this in the past. I do appreciate being asked to see the patient and recommend continued mobility and elevation of his legs when possible, nutritional support. I appreciate being asked to see him in consultation. <ELECTRONICALLY SIGNED> By: Pérez Myers MD 01/15/17 0821 1820 1905 Pérez Myers MD /alexandro
[~2017-01-14 13:59] MED LIST changes: +ENOXAPARIN40 MG/0.1 SUBQ
[2017-01-15 03:46] VITALS: BP 125/84
[2017-01-15 03:52] LABS: HEMATOCRIT 39.1 % (42.0-52.0); MCH 29.1 pg (26.0-34.0); MCHC 33.1 g/dL (28.0-37.0); MCV 87.8 fL (80.0-100.0); RBC 4.46 mil/uL (4.50-6.00); RDW 14.7 % (10.5-14.5); WBC 4.6 thou/uL (4.0-11.0)
[2017-01-15 04:06] LABS: CREATININE 1.2 mg/dL (0.7-1.3); MAGNESIUM 2.1 mg/dL (1.8-2.4); POTASSIUM 3.9 mmol/L (3.5-5.1)
[2017-01-16 05:42] VITALS: BP 106/70
[2017-01-16 15:39] VITALS: BP 118/86
[2017-01-17 01:59] VITALS: BP 137/93
[2017-01-17 06:08] LABS: HEMATOCRIT 38.9 % (42.0-52.0); HEMOGLOBIN 13.1 gm/dL (14.0-18.0); MCH 29.1 pg (26.0-34.0); MCHC 33.7 g/dL (28.0-37.0); MCV 86.3 fL (80.0-100.0); PLATELET COUNT 248 thou/uL (150-400); RBC 4.51 mil/uL (4.50-6.00); RDW 14.6 % (10.5-14.5); WBC 4.6 thou/uL (4.0-11.0)
[2017-01-17 06:11] LABS: MANUAL DIFF YES
[2017-01-17 06:18] LABS: CALCIUM 9.2 mg/dL (8.5-10.1); CREATININE 1.1 mg/dL (0.7-1.3); MAGNESIUM 2.3 mg/dL (1.8-2.4); POTASSIUM 3.8 mmol/L (3.5-5.1)
[2017-01-17 08:16] LABS: ABSOLUTE NEUTROPHILS 1.5 thou/uL (1.4-8.2); PLATELET ESTIMATE NORMAL; TOTAL CELL COUNT 100
[2017-01-17 16:00] VITALS: BP 114/78
[2017-01-18 05:05] VITALS: BP 117/83
[2017-01-18 16:00] VITALS: BP 104/72
[2017-01-19 06:19] VITALS: BP 109/65
[2017-01-19 16:00] VITALS: BP 117/78
[2017-01-20 03:53] VITALS: BP 116/84
[2017-01-20 15:53] VITALS: BP 110/64
[2017-01-21 04:58] VITALS: BP 126/79
[2017-01-21 09:50] LABS: HEMATOCRIT 44.9 % (42.0-52.0); HEMOGLOBIN 14.8 gm/dL (14.0-18.0); MCH 28.6 pg (26.0-34.0); MCHC 32.9 g/dL (28.0-37.0); MCV 86.9 fL (80.0-100.0); PLATELET COUNT 277 thou/uL (150-400); RBC 5.16 mil/uL (4.50-6.00); RDW 14.2 % (10.5-14.5); WBC 4.6 thou/uL (4.0-11.0)
[2017-01-21 09:51] LABS: MANUAL DIFF YES
[2017-01-21 09:59] LABS: CALCIUM 9.7 mg/dL (8.5-10.1); CREATININE 1.1 mg/dL (0.7-1.3); POTASSIUM 4.5 mmol/L (3.5-5.1)
[2017-01-21 10:43] LABS: ABSOLUTE NEUTROPHILS 1.6 thou/uL (1.4-8.2); TOTAL CELL COUNT 100
[2017-01-21 10:44] LABS: PLATELET ESTIMATE NORMAL
[2017-01-21 18:20] VITALS: BP 115/78
[2017-01-22 04:31] VITALS: BP 143/95
[2017-01-22 15:30] VITALS: BP 107/69
[2017-01-22 17:13] VITALS: BP 107/69
[2017-01-23 05:51] VITALS: BP 103/69
[2017-01-23] MEDS ORDERED: VITAMIN D2000 UNIT PO (07:36)
[2017-01-23] MEDS ORDERED: COLACE100 MG PO (07:36)
[2017-01-23] MEDS ORDERED: PROTONIX 20 MG20 M1 PO (07:36)
[2017-01-23] MEDS ORDERED: B-12500 MCG PO (07:36)
[2017-01-23 08:29] VITALS: BP 107/69
[2017-01-23] MEDS ORDERED: BISACODYL SUPP10 MG RECTAL (10:33)
[2017-01-23 12:06] VITALS: BP 107/69
== END 2017-01-23 18:17 | disposition home health service (06) | DRG 57 ==
PROVIDERS: Nurse Practitioner; Physical Medicine & Rehabilitation
DX: G20 Parkinson's disease (principal); I89.0 Lymphedema, not elsewhere classified; S80.822A Blister (nonthermal), left lower leg, initial encounter; S80.821A Blister (nonthermal), right lower leg, initial encounter; X58.XXXA Exposure to other specified factors, initial encounter; Z96.642 Presence of left artificial hip joint; F01.50 Vascular dementia, unspecified severity, without behavioral disturbance, psychotic disturbance, mood disturbance, and anxiety; R53.81 Other malaise; E88.09 Other disorders of plasma-protein metabolism, not elsewhere classified; E53.8 Deficiency of other specified B group vitamins; E55.9 Vitamin D deficiency, unspecified; K59.00 Constipation, unspecified; Z88.5 Allergy status to narcotic agent; Y93.89 Activity, other specified; Y92.89 Other specified places as the place of occurrence of the external cause; Y99.8 Other external cause status; Z87.828 Personal history of other (healed) physical injury and trauma
CPT/HCPCS: 10112

== ENCOUNTER 2017-02-04 14:04 | Inpatient (IN) | payer OTHER | END 2017-02-06 16:19 | disposition home health service (06) | DRG 303 | LOC: ER 14:04 → EROBS 16:45 → 4E 18:44 | DX: I87.8 Other specified disorders of veins (principal); E44.1 Mild protein-calorie malnutrition; Z96.642 Presence of left artificial hip joint; G20 Parkinson's disease; G89.29 Other chronic pain; Z79.899 Other long term (current) drug therapy; Z88.5 Allergy status to narcotic agent; Z68.35 Body mass index [BMI] 35.0-35.9, adult ==

== ENCOUNTER → 2017-02-20 | Outpatient (CLI) | payer OTHER ==
[~2017-02-20] MED LIST changes: +B-12500 MCG PO; +BISACODYL SUPP10 MG RECTAL; +FUROSEMIDE 40 M40 M1 PO; +PROTONIX 20 MG20 M1 PO; +ROXICODONE5 M2 PO; +VITAMIN D2000 UNIT PO
--- NOTE | ~2017-02-20 | HPC ---
[facility] [place] [address] PAIN MANAGEMENT CONSULTATION Name: PANCHO STILL [id number] Admission: 02/20/17 Attend Phys: Dodie Ovalles MD Discharge: Date of : 60 Report #: [id number] THIS REPORT FOR: //name// CC: Patrick Espinosa MD DATE OF SERVICE: 02/20/2017 FOLLOWUP COMPLAINT: I was in the hospital last week. FOLLOWUP HISTORY: The patient is a 57-year-old gentleman who has been followed in the Pain Clinic because of chronic pain involving his lower extremities. As you recall, he has Parkinson disease. He has chronic lymphedema and has been seen in the past by the Wound Clinic. He rates his pain as a 7/10 today. He continues to have stiffness, soreness and some difficulty with moving associated with his Parkinson's. He continues to wear compression stockings on his lower extremities. He feels that this medication continues to be helpful. He is still in a wheelchair. He has not fallen since we saw him last. PAST MEDICAL HISTORY: Bilateral stents in legs, July 2015. PHYSICAL EXAMINATION: Blood pressure 154/85, pulse 79, respiratory rate 16, room air saturation is 100. He does have some difficulty with standing and walking. IMPRESSION: 1. Chronic lymphedema in the lower extremities. Has compression stockings on the lower extremities. 2. History of venous insufficiency. 3. 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 4. Status post fall in June with compression fracture of the lumbar area, stable. RECOMMENDATIONS: A script for OxyContin and OxyIR have been written. The patient will call us if he has any problems with his medications. We would like to thank you for letting us participate in his care. We hope he continues to improve. By: 1227 0156 Dodie Ovalles MD /
[2017-02-20 08:37] VITALS: BP 154/85
== END ==
LOC: PAIN 06:54
DX: I89.0 Lymphedema, not elsewhere classified (principal); G20 Parkinson's disease; Z88.6 Allergy status to analgesic agent

== ENCOUNTER 2017-03-05 14:47 | Inpatient (IN) | payer OTHER ==
[~2017-03-05] VITALS: Ht 177.8 cm; Wt 111.1 kg
--- NOTE | ~2017-03-05 | EKG ---
[address] [place] [address] ELECTROCARDIOGRAM REPORT Name: PANCHO STILL Room #: 429-P [facility] IN [facility].#: [id number] Admission: 03/05/17 Attend Phys: Emerson Keller MD Discharge: Date of : 60 Report #: [id number] THIS REPORT FOR: //name// [facility] ED Test Date: 2017-03-05 Test Time: 15:26:04 Pat Name: PANCHO STILL Department: Room: 429 Gender: M Manager Life: Catie YODER : 1960 Requested By: Griffin Thao Order Number: [id number] MD: Dale Meyer Measurements Intervals [place] Rate: 80 P: 47 NM: 184 QRS: 45 QRSD: 76 T: 23 QT: 367 QTc: 424 Interpretive Statements Sinus rhythm No significant abnormality Compared to ECG 02/04/2017 16:24:14 No significant change was found Electronically Signed On 03-06-2017 8:03:12 CDT by Dale Meyer [email or web address] <ELECTRONICALLY SIGNED> By: Dale Meyer MD, [facility] 03/06/17 0803 1526 1526 Dale Meyer MD, [facility] /EPI
--- NOTE | ~2017-03-05 | H ---
[facility] [place] [address] HISTORY AND PHYSICAL Name: TESSYPANCHO Minerva Room #: 429-P [facility] IN M.R.#: [id number] Admission: 03/05/17 Attend Phys: Emerson Keller MD Discharge: Date of : 60 Report #: [id number] THIS REPORT FOR: //name// CC: Karolina Keller DATE OF SERVICE: 03/05/2017 CHIEF COMPLAINT: Fall. HISTORY OF PRESENT ILLNESS: The patient is a 57-year-old male with history of Parkinson's disease, chronic venous stasis of the lower extremity, bilateral lower extremity stenting for PVD in 2016, bilateral chronic lymphedema, presented to the Emergency Room after a fall. The patient stated that he was walking at home with his walker when he felt like his knee gave out and he fell on the carpet. The patient complains of low back pain and he also complains of neck pain. He is not sure what made him fall. He denies any syncopal episode to being. The episode was not preceded by any dizziness or any shortness of breath. The patient denies any nausea or vomiting. No new visual disturbance. The patient denies any fever or chills. Workup in the Emergency Room showed normal renal function. He did have a urinary tract infection. PAST MEDICAL HISTORY: Significant for Parkinson's disease. The patient lives with his mother and walks with the help of a walker. He has history of compression fracture of L1, contusion in the left, he has lymphedema in the lower extremity, hypoalbuminemia, umbilical hernia, history of stenting in his lower extremity. History of prior left femoral neck fracture and hemiarthroplasty in 2015. The patient had an echocardiogram in December, which showed normal ejection fraction, EF of 55-60%. SOCIAL HISTORY: Lives with his mom. Denies smoking, alcohol abuse, or illicit drug abuse. ALLERGIES: ALLERGIC TO MORPHINE. Please look at the nursing documentation for the reaction. HOME MEDICATIONS: Please look at the nursing documentation. Home medications were reviewed. FAMILY HISTORY: Significant for hypertension. REVIEW OF SYSTEMS: CONSTITUTIONAL: No recent weight loss, weight gain. Denies any fever or chills. EYES: No change in vision. [address] [address] HISTORY AND PHYSICAL Name: PANCHO STILL Room #: 429-P [facility] IN ..#: [id number] Admission: 03/05/17 Attend Phys: Emerson Keller MD Discharge: Date of : 60 Report #: [id number] THROAT: Denies any sore throat. CARDIOVASCULAR: No chest pain, dizziness, palpitations. RESPIRATORY: No cough or expectoration. GASTROINTESTINAL: No nausea, vomiting or any abdominal pain. GENITOURINARY: No dysuria, hematuria. NEUROLOGIC: Denies any new weakness of extremities. The 12-point review of system is negative other than the positive and negative dictated in the history of present illness and the review of system. PHYSICAL EXAMINATION: VITAL SIGNS: Reviewed. Blood pressure is 152/86, heart rate of 64 per minute, afebrile. GENERAL: The patient is awake and alert, not in acute respiratory distress. He is saturating 98% on room air. EYES: Pupils are equal, reactive to light. Throat appears normal. NECK: Supple, no JVD, no bruit, no lymphadenopathy. CARDIOVASCULAR SYSTEM: S1, S2, negative S3, no murmur. CHEST: Bilateral air entry present. Clear on auscultation. ABDOMEN: Soft, bowel sounds present, no mass, no organomegaly, no tenderness. EXTREMITIES: Periphery he has chronic lymphedema of the lower extremity has 1-2+ pedal edema. Dorsalis pedis 1+ to feeble. LABORATORY DATA: Reviewed. White count is 4.2, hemoglobin is 12.1. Platelet is 192. PT, PTT, chemistry showed a BUN of 9, creatinine of 0.8. AST and ALT are within normal limit. Troponin 0.04. EKG done today showed sinus rhythm at baseline wander in lead V2. Urinalysis showed positive leukocyte esterase is more than 25 WBC. ASSESSMENT AND PLAN: 1. Status post fall, multifactorial, probably secondary to his Parkinson/debility. We will consult Physical and occupational therapy. The patient may need discharge planning to long-term unit or even long-term placement. 2. Urinary tract infection. The patient will be started on IV levofloxacin. Follow urine culture and adjust antibiotic as needed. 3. Status post fall with negative fracture on his x-rays and CAT scans. CT of the spine did show cervical spondylosis. 4. Parkinson's disease. The patient will be continued on his carbidopa/levodopa. 5. Deep venous thrombosis prophylaxis. He will be on sequential compression devices on the leg for deep venous thrombosis prophylaxis. 6. History of chronic pain, on OxyContin which will be continued. Physical and occupational therapy and Social service has been consulted. [facility] [address] [place] [address] HISTORY AND PHYSICAL Name: PANCHO STILL Room #: 429-P [facility] IN .R.#: [id number] Admission: 03/05/17 Attend Phys: Emerson Keller MD Discharge: Date of : 60 Report #: [id number] Treatment plan has been explained to the patient in detail. <ELECTRONICALLY SIGNED> By: Emerson Keller MD 03/05/17 1851 1821 1846 Emerson Keller MD /nt
--- NOTE | ~2017-03-05 | HC ---
[facility] [place] [address] CONSULTATION Name: PANCHO STILL Room #: 429-P [facility] IN ..#: [id number] Admission: 03/05/17 Attend Phys: Emerson Keller MD Discharge: 03/09/17 Date of : 60 Report #: [id number] THIS REPORT FOR: //name// CC: Karolina Keller REASON FOR CONSULTATION: I was asked to evaluate concerning urinary tract infection. HISTORY OF PRESENT ILLNESS: The patient is a 57-year-old with a history of Parkinson's disease who presents with a fall. He was found to have urinary tract infection, growth of Gemella. Treated with Levaquin. No fever or chills. White count now is normal. Reports dysuria and frequency prior to his admission. No back or flank pain. PAST MEDICAL HISTORY: Parkinson's disease, left hip fractures, status post repair; hemiarthroplasty, umbilical herniorrhaphy, lower extremity vascular disease, status post stenting; L1 compression fracture, and chronic lymphedema. ALLERGIES: To MORPHINE. MEDICATIONS: As noted on his MAR including Levaquin. FAMILY HISTORY: Hypertension. SOCIAL HISTORY: Nonsmoker. No significant alcohol intake. REVIEW OF SYSTEMS: Denies any cough, sputum, nausea, vomiting, or diarrhea. He states that his urinary discomfort has improved. PHYSICAL EXAMINATION: VITAL SIGNS: Afebrile, hemodynamically stable. GENERAL: The patient was alert and cooperative. Very stiff. Masked facies. SKIN: Unremarkable. LYMPH: Unremarkable. He had 2+ peripheral edema in lower extremities. MOUTH: Unremarkable. NECK: Supple. LUNGS: Clear. HEART: Regular without murmur. ABDOMEN: Soft and nontender. No CVA tenderness. EXTERNAL GENITALIA: Unremarkable. RECTAL: With enlarged prostate 2+. No definite mass identified. No tenderness. LABORATORY STUDIES: Sodium 138, potassium 4.1, and creatinine 0.9. Liver function tests normal. Hemoglobin 12.2, white count 4.1, platelet count 206,000, differential unremarkable. Urinalysis 25, many wbc's, many bacteria. [facility] [address] [place] [address] CONSULTATION Name: PANCHO STILL Room #: 429-P [facility] IN ..#: [id number] Admission: 03/05/17 Attend Phys: Emerson Keller MD Discharge: 03/09/17 Date of : 60 Report #: [id number] Urine culture greater than 10 to the 5th [address] scan of the pelvis, bilateral iliac vein stents, no retroperitoneal abnormalities. IMPRESSION: A 57-year-old with Parkinson's disease and urinary tract infection. The patient states this is his first urinary tract infection. I prostatitis. Question whether neurogenic bladder issues. Nothing obvious on CT scan of his pelvis, but did not get up to the kidneys. We will check ultrasound to further evaluate. The Gemella species should be sensitive to penicillin. We will use amoxicillin 875 mg b.i.d. for another 10 days. We would check postvoid residual and ultrasound prior to dismissal. <ELECTRONICALLY SIGNED> By: Lasha Winkler MD 03/10/17 1301 1152 1226 Lasha Winkler MD /nt
[2017-03-05 14:47] VITALS: BP 137/81
[~2017-03-05 14:47] MED LIST changes: -CARBIDOPA-LEVO1 EAC2 PO; +CARBIDOPA-LEVO1 EAC9 PO
[2017-03-05 16:11] LABS: HEMATOCRIT 37.6 % (42.0-52.0); HEMOGLOBIN 12.1 gm/dL (14.0-18.0); MCH 28.5 pg (26.0-34.0); MCHC 32.3 g/dL (28.0-37.0); MCV 88.4 fL (80.0-100.0); RBC 4.25 mil/uL (4.50-6.00); RDW 14.4 % (10.5-14.5); WBC 4.2 thou/uL (4.0-11.0)
[2017-03-05 16:20] LABS: ANION GAP 8 mmol/L (7-16); BUN 9 mg/dL (7-18); CALCIUM 8.5 mg/dL (8.5-10.1); CHLORIDE 106 mmol/L (98-107); CO2 23 mmol/L (21-32); CREATININE 0.8 mg/dL (0.7-1.3); GLUCOSE 87 mg/dL (74-106); POTASSIUM 4.9 mmol/L (3.5-5.1); SODIUM 137 mmol/L (136-145)
[2017-03-05 16:29] LABS: ALBUMIN 2.9 g/dL (3.4-5.0); ALKALINE PHOSPHATASE 72 U/L (46-116); SGOT 20 U/L (15-37); SGPT 16 U/L (30-65); TOTAL BILIRUBIN 0.4 mg/dL (<0.1-1.0); TOTAL PROTEIN 7.2 g/dL (6.4-8.2); TROPONIN-I < 0.04 ng/mL (<0.04-0.07)
[2017-03-05 17:26] LABS: URINE BILIRUBIN NEGATIVE (Negative); URINE BLOOD TRACE (Negative); URINE COLOR YELLOW; URINE GLUCOSE-RANDOM* NEGATIVE (Negative); URINE KETONES NEGATIVE (Negative); URINE PROTEIN (DIPSTICK) 1+ (Negative); URINE UROBILINOGEN 0.2 E.U./dl (0.2-1.0)
[2017-03-05 17:31] LABS: URINE LEUKOCYTES-REFLEX 3+ (Negative)
[2017-03-05 17:35] LABS: CRYSTALS None Seen /LPF (None Seen); SQUAMOUS None Seen /LPF (0-3); URINE RBC None Seen /HPF (0-2); URINE WBC-REFLEX >25 Many /HPF (0-5)
[2017-03-05 18:04] VITALS: BP 152/86
[2017-03-05 18:30] VITALS: BP 145/96
[2017-03-05 20:15] VITALS: BP 132/86
[2017-03-06 03:44] VITALS: BP 142/92
[2017-03-06 07:28] LABS: BASOPHILS 0.6 % (0.0-2.0); EOSINOPHILS 2.9 % (0.0-3.0); HEMATOCRIT 34.6 % (42.0-52.0); HEMOGLOBIN 11.5 gm/dL (14.0-18.0); LYMPHOCYTES 40.1 % (24.0-44.0); MCH 28.9 pg (26.0-34.0); MCHC 33.2 g/dL (28.0-37.0); MCV 87.3 fL (80.0-100.0); MONOCYTES 11.5 % (1.0-8.0); PLATELET COUNT 195 thou/uL (150-400); POLYS 44.9 % (36.0-66.0); RBC 3.96 mil/uL (4.50-6.00); RDW 14.2 % (10.5-14.5); WBC 4.5 thou/uL (4.0-11.0)
[2017-03-06 07:33] LABS: MANUAL DIFF NO
[2017-03-06 07:37] LABS: CALCIUM 8.4 mg/dL (8.5-10.1); MAGNESIUM 1.9 mg/dL (1.8-2.4)
[2017-03-06 07:39] VITALS: BP 149/99
[2017-03-06 07:41] LABS: POTASSIUM 3.4 mmol/L (3.5-5.1)
[2017-03-06 20:00] VITALS: BP 135/93
[2017-03-07 04:00] VITALS: BP 152/102
[2017-03-07 06:17] VITALS: BP 130/90
[2017-03-07 08:01] VITALS: BP 131/76
[2017-03-07 15:33] VITALS: BP 107/64
[2017-03-07 20:00] VITALS: BP 130/84
[2017-03-08 03:30] VITALS: BP 130/84
[2017-03-08 04:30] VITALS: BP 141/94
[2017-03-08 06:20] LABS: HEMOGLOBIN 12.2 gm/dL (14.0-18.0); MANUAL DIFF YES; MCH 28.9 pg (26.0-34.0); MCHC 32.9 g/dL (28.0-37.0); MCV 87.8 fL (80.0-100.0); PLATELET COUNT 206 thou/uL (150-400); RBC 4.21 mil/uL (4.50-6.00); RDW 14.3 % (10.5-14.5); WBC 4.1 thou/uL (4.0-11.0)
[2017-03-08 06:31] LABS: CALCIUM 8.4 mg/dL (8.5-10.1); CREATININE 0.9 mg/dL (0.7-1.3); POTASSIUM 4.1 mmol/L (3.5-5.1)
[2017-03-08 08:00] VITALS: BP 128/87
[2017-03-08 08:42] LABS: ABSOLUTE NEUTROPHILS 1.5 thou/uL (1.4-8.2); PLATELET ESTIMATE NORMAL; TOTAL CELL COUNT 100
[2017-03-08 14:28] VITALS: BP 128/87
[2017-03-08 16:00] VITALS: BP 106/69
[2017-03-08 19:53] VITALS: BP 117/75
[2017-03-09 03:32] VITALS: BP 118/72
[2017-03-09 08:00] VITALS: BP 121/82
[2017-03-09] MEDS ORDERED: OXYCODONE HCL10 MG PO (09:07)
[2017-03-09] MEDS ORDERED: AMOX PO (11:35)
[2017-03-09] MEDS ORDERED: AMOXICILLIN875 MG PO (14:21)
== END 2017-03-09 16:46 | disposition home health service (06) | DRG 57 ==
LOC: ER 14:47 → 4E 17:29 → EROBS 17:29 → 4E 17:58
PROVIDERS: Emergency Medicine; Family Medicine; Internal Medicine
DX: G20 Parkinson's disease (principal); N39.0 Urinary tract infection, site not specified; E44.0 Moderate protein-calorie malnutrition; I87.8 Other specified disorders of veins; G89.29 Other chronic pain; M54.5 Low back pain; W19.XXXA Unspecified fall, initial encounter; I73.9 Peripheral vascular disease, unspecified; Z79.899 Other long term (current) drug therapy; Z88.5 Allergy status to narcotic agent; Z68.35 Body mass index [BMI] 35.0-35.9, adult; Z87.19 Personal history of other diseases of the digestive system; Z82.49 Family history of ischemic heart disease and other diseases of the circulatory system; Y93.9 Activity, unspecified; Y92.009 Unspecified place in unspecified non-institutional (private) residence as the place of occurrence of the external cause; Z23 Encounter for immunization
CPT/HCPCS: 10183

== ENCOUNTER 2017-04-12 09:20 | Emergency (ER) | payer OTHER ==
[~2017-04-12] VITALS: Ht 177.8 cm; Wt 111.1 kg
[~2017-04-12 09:20] MED LIST changes: +AMOX PO; +AMOXICILLIN875 MG PO
[2017-04-12 10:15] LABS: HEMATOCRIT 36.9 % (42.0-52.0); MCH 28.5 pg (26.0-34.0); MCHC 32.6 g/dL (28.0-37.0); MCV 87.2 fL (80.0-100.0); RBC 4.23 mil/uL (4.50-6.00); RDW 14.3 % (10.5-14.5); WBC 4.3 thou/uL (4.0-11.0)
[2017-04-12 10:30] LABS: PROTIME 10.7 Seconds (9.3-11.4)
[2017-04-12 10:32] LABS: CALCIUM 8.7 mg/dL (8.5-10.1); CREATININE 0.8 mg/dL (0.7-1.3); POTASSIUM 3.8 mmol/L (3.5-5.1)
[2017-04-12] MEDS ORDERED: PERCOCET 5-3251 EACH PO (12:51)
== END 2017-04-12 13:02 | disposition home or self-care (01) ==
LOC: ER 09:20
PROVIDERS: Physician Assistant
DX: M54.5 Low back pain (principal); G20 Parkinson's disease; G89.29 Other chronic pain; Z88.5 Allergy status to narcotic agent; W18.39XA Other fall on same level, initial encounter; Y93.89 Activity, other specified; Y92.89 Other specified places as the place of occurrence of the external cause; Y99.8 Other external cause status

== ENCOUNTER 2017-04-15 13:32 | Emergency (ER) | payer OTHER ==
[~2017-04-15] VITALS: Ht 177.8 cm; Wt 113.4 kg
--- NOTE | ~2017-04-15 | EKG ---
[place] [address] [address] [place] [address] ELECTROCARDIOGRAM REPORT Name: PANCHO STILL Room #: [facility]#: [id number] Admission: 04/15/17 Attend Phys: Discharge: Date of : 60 Report #: [id number] THIS REPORT FOR: //name// [facility] ED Test Date: 2017-04-15 Test Time: 14:25:02 Pat Name: PANCHO STILL Department: Room: Gender: Director Volunteer Services: [facility] : 1960 Requested By: Griffin Thao Order Number: [id number] MD: Michael Harris Measurements Intervals [place] Rate: 69 P: 16 [place]: 193 QRS: 48 QRSD: 77 T: 21 QT: 380 QTc: 407 Interpretive Statements Sinus rhythm Abnormal R-wave progression, early transition Compared to ECG 03/05/2017 15:26:04 No significant changes Electronically Signed On 04-15-2017 14:41:49 CDT by Michael Harris [email or web address] <ELECTRONICALLY SIGNED> By: Michael Harris MD 04/15/17 1441 1425 1425 MD MICHELE Sierra
[2017-04-15 15:04] LABS: HEMATOCRIT 37.7 % (42.0-52.0); HEMOGLOBIN 12.2 gm/dL (14.0-18.0); MCH 28.4 pg (26.0-34.0); MCHC 32.3 g/dL (28.0-37.0); MCV 87.9 fL (80.0-100.0); RBC 4.29 mil/uL (4.50-6.00); RDW 14.6 % (10.5-14.5); WBC 4.3 thou/uL (4.0-11.0)
[2017-04-15 15:10] LABS: ANION GAP 6 mmol/L (7-16); BUN 8 mg/dL (7-18); CALCIUM 9.2 mg/dL (8.5-10.1); CHLORIDE 105 mmol/L (98-107); CO2 30 mmol/L (21-32); CREATININE 0.9 mg/dL (0.7-1.3); GLUCOSE 90 mg/dL (74-106); POTASSIUM 4.2 mmol/L (3.5-5.1); SODIUM 141 mmol/L (136-145)
[2017-04-15 15:20] LABS: ALBUMIN 3.4 g/dL (3.4-5.0); ALKALINE PHOSPHATASE 88 U/L (46-116); SGOT 14 U/L (15-37); SGPT 16 U/L (30-65); TOTAL BILIRUBIN 0.4 mg/dL (<0.1-1.0); TOTAL PROTEIN 7.3 g/dL (6.4-8.2); TROPONIN-I < 0.04 ng/mL (<0.06)
== END 2017-04-15 18:04 | disposition home or self-care (01) ==
LOC: ER 13:32
PROVIDERS: Emergency Medicine
DX: M25.511 Pain in right shoulder (principal); R51 Headache; G20 Parkinson's disease; G89.29 Other chronic pain; I87.8 Other specified disorders of veins; Z88.5 Allergy status to narcotic agent

== ENCOUNTER 2017-05-16 12:28 | Inpatient (IN) | payer OTHER ==
[~2017-05-16] VITALS: Ht 177.8 cm; Wt 102.1 kg
--- NOTE | ~2017-05-16 | HC ---
[facility] [place] [address] CONSULTATION Name: TESSYPANCHO Room #: 406-P [facility] IN .R.#: [id number] Admission: 05/16/17 Attend Phys: Rico Taylor MD Discharge: Date of : 60 Report #: [id number] THIS REPORT FOR: //name// CC: Rico Garrett CHIEF COMPLAINT: Left hip pain. HISTORY OF PRESENT ILLNESS: The patient is a pleasant 57-year-old male who complains of pain about the left hip that has been progressively worsening. The patient reports occasional pain in the left hip over the last couple of weeks, but starting on , 2 days ago, he was going up some stairs when he noticed significant increase of pain and has been unable to bear weight or walk on that hip without significant pain since then. The patient had a prior left hip hemiarthroplasty performed approximately 2 years ago and states that he did well after this with no real pain until recently. He does see Dr. Ovalles for chronic pain management. The patient denies any recent injury or fall to the left hip, but states that he did fall about 2 months ago and has had some low back pain since that time. The patient locates his left hip pain to the lateral aspect of the left hip, but states that he occasionally gets pain in the posterior hip and rarely in the groin area. He does report pain radiating down to the mid thigh. He denies any pain that radiates past the mid thigh region as well as any numbness or tingling in the left leg. ALLERGIES: MORPHINE. PAST MEDICAL HISTORY: Significant for chronic pain, Parkinson's, peripheral edema, low back pain with possible recent compression fracture. PAST SURGICAL HISTORY: History of left hip hemiarthroplasty in 2014. MEDICATIONS: Please see MAR for dosing, but include cholecalciferol, cyanocobalamin, oxycodone 5 mg, oxycodone 10 mg, ropinirole, carbidopa/levodopa, furosemide, docusate, potassium. PHYSICAL EXAMINATION: VITAL SIGNS: Temperature 36.3, blood pressure 115/71, pulse 77. GENERAL: The patient is well-developed, well-nourished in no acute distress. He is awake and alert. EXTREMITIES: Left lower extremity, edema noted in the lower leg. Lower leg is neurovascularly intact. The patient has pain with passive range of motion of the left hip. No tenderness about the knee or ankle. Tenderness to palpation about the lateral aspect to the left hip is mild. No tenderness to palpation of the groin or posterior hip. IMAGIN. CT scan of the left hip and pelvis shows left hip prosthesis is intact, [place] [address] CONSULTATION Name: PANCHO STILL Room #: 406-P [facility] IN M.R.#: [id number] Admission: 05/16/17 Attend Phys: Rico Taylor MD Discharge: Date of : 60 Report #: [id number] pelvis is intact. Bilateral iliac Wallstent is in place. 2. Pelvis and the left hip x-rays show that the left hip prosthesis is intact. 3. Venous Doppler of the bilateral lower extremities shows no evidence for femoropopliteal DVT in either leg. IMPRESSION: Left hip pain. PLAN: Discussed with the patient that there does not seem to be any evidence of fracture on the hip x-rays or CT scan. I have spoken with Dr. Carlson who has also reviewed the patient's CT scan and x-rays and says that he notes some wearing of the acetabulum of the left hip and this could be the likely source of his pain. The patient has had lab work performed, which include a CBC and CMP. However, I would like to obtain a CRP and sed rate to rule out any kind of underlying infection in the left hip. The patient does report that he fell approximately 2 months ago and had a compression fracture of his lumbar spine. We discussed that this could be contributing to his left hip pain potentially. We will obtain blood work to rule out infection and based further treatment recommendations once these results are obtained. <ELECTRONICALLY SIGNED> By: DANICA [place] 05/19/17 1231 [id number] DANICA [place] /nt
--- NOTE | ~2017-05-16 | CNG ---
[facility] [place] [address] CYTO-NONGYN REPORT PROCEDURE Name: BRITTANY LOVING Room #: 406-P [facility] IN ..#: [id number] Admission: 05/16/17 Date of : 60 Discharge: 05/22/17 Report #: [id number] Path Case #: [id number] CYTOPATHOLOGY REPORT COLLECTION DATE: 05/20/2017 RECEIVED DATE: 05/22/2017 SUBMITTING PHYS: Nereyda MISHRA OTHER PHYS: Dr. Jaspal Garrett CLINICAL HISTORY: Left hip pain, inability to ambulate SPECIMEN(S) RECEIVED: A.Fluid, Left hip synovial * * * * * * * * * * * * FINAL DIAGNOSIS: A. Fluid, Left hip synovial: - Paucicellular specimen with scattered acute and chronic inflammatory cells and amorphous debris present. No polarizable crystals or material identified. PATHOLOGIST: Keke Schwab M.D. REPORT ELECTRONICALLY SIGNED BY: Keke Schwab M.D. DATE/TIME: 05/23/2017 15:52 * * * * * * * * * * * * GROSS PATHOLOGY: A. Fluid, Left hip synovial: The specimen is submitted unfixed, labeled "Brittany Loving". Received by the Cytology Department is two mL of cloudy red fluid. One ThinPrep slide was prepared. ( 05.22.2017) TIGER MACHINE OPERATOR(S): KORIN Wing(ASCP) INITIAL CPT CODE(S): A; 61578 Professional services performed by [facility] at [facility] [address], [place] [address] Technical services performed by [facility] at [address] [place] [address], [address], [place] [address]. [facility] [address] [place] [address] CYTO-NONGYN REPORT PROCEDURE Name: BRITTANY LOVING Room #: 406-P [facility] IN [facility].#: [id number] Admission: 05/16/17 Date of : 60 Discharge: 05/22/17 Report #: [id number] Path Case #: [id number] [address] [facility], [address] [place] [address] PHONE: [phone] DIRECTOR: Rick Pollard M.D. * * * END OF REPORT * * *
[~2017-05-16 12:28] MED LIST changes: +REQUIP 0.25 M0.25 MG PO
[2017-05-16 12:35] VITALS: BP 159/94
[2017-05-16 14:27] VITALS: BP 159/94
[2017-05-16 14:54] LABS: HEMATOCRIT 38.9 % (42.0-52.0); HEMOGLOBIN 12.4 gm/dL (14.0-18.0); MCH 28.1 pg (26.0-34.0); MCHC 31.9 g/dL (28.0-37.0); RBC 4.42 mil/uL (4.50-6.00); RDW 14.3 % (10.5-14.5); WBC 4.5 thou/uL (4.0-11.0)
[2017-05-16 15:02] LABS: CALCIUM 9.5 mg/dL (8.5-10.1); CREATININE 0.9 mg/dL (0.7-1.3); POTASSIUM 4.2 mmol/L (3.5-5.1)
[2017-05-16 15:36] LABS: ALBUMIN 3.2 g/dL (3.4-5.0); DIRECT BILIRUBIN 0.1 mg/dL (<0.1-0.3); TOTAL BILIRUBIN 0.4 mg/dL (<0.1-1.0); TOTAL PROTEIN 7.9 g/dL (6.4-8.2)
[2017-05-16 16:34] VITALS: BP 149/72
[2017-05-16 16:40] VITALS: BP 162/94
[2017-05-16 20:00] VITALS: BP 118/74
[2017-05-17 04:20] VITALS: BP 145/91
[2017-05-17 07:46] VITALS: BP 140/93
[2017-05-17 16:30] VITALS: BP 121/74
[2017-05-17 20:03] VITALS: BP 142/87
[2017-05-18 04:31] VITALS: BP 115/71
[2017-05-18 08:00] VITALS: BP 125/84
[2017-05-18 16:34] VITALS: BP 131/90
[2017-05-18 20:00] VITALS: BP 143/93
[2017-05-19 04:00] VITALS: BP 131/94
[2017-05-19 04:01] LABS: POTASSIUM 3.9 mmol/L (3.5-5.1)
[2017-05-19 09:48] VITALS: BP 140/96
[2017-05-19 20:00] VITALS: BP 159/88
[2017-05-20 04:00] VITALS: BP 114/73
[2017-05-20 08:00] VITALS: BP 131/88
[2017-05-20 16:32] VITALS: BP 114/77
[2017-05-20 20:24] VITALS: BP 117/75
[2017-05-21 04:47] VITALS: BP 142/89
[2017-05-21 08:41] VITALS: BP 108/72
[2017-05-21 09:30] LABS: HEMATOCRIT 36.5 % (42.0-52.0); HEMOGLOBIN 11.7 gm/dL (14.0-18.0); MANUAL DIFF YES; MCH 28.3 pg (26.0-34.0); MCHC 32.2 g/dL (28.0-37.0); MCV 87.8 fL (80.0-100.0); PLATELET COUNT 252 thou/uL (150-400); RBC 4.16 mil/uL (4.50-6.00); RDW 13.9 % (10.5-14.5); WBC 4.5 thou/uL (4.0-11.0)
[2017-05-21 09:37] LABS: CALCIUM 8.7 mg/dL (8.5-10.1); CREATININE 0.9 mg/dL (0.7-1.3); POTASSIUM 4.5 mmol/L (3.5-5.1)
[2017-05-21 09:48] LABS: ABSOLUTE NEUTROPHILS 1.9 thou/uL (1.4-8.2); TOTAL CELL COUNT 100
[2017-05-21 09:49] LABS: ANISOCYTOSIS SLIGHT
[2017-05-21 14:51] LABS: CLARITY CLOUDY; COLOR RED; MANUAL DIFF YES; TOTAL VOLUME 3 mL
[2017-05-21 14:52] LABS: BF NUCLEATED CELLS 1354; BF RBC 69554
[2017-05-21 16:03] LABS: BF MACROPHAGE 3
[2017-05-21 16:05] LABS: BF NEUTROPHILS 93
[2017-05-21 20:40] VITALS: BP 112/71
[2017-05-22 01:30] VITALS: BP 104/57
[2017-05-22 05:05] VITALS: BP 122/74
[2017-05-22 08:19] VITALS: BP 110/73
[2017-05-22 15:30] VITALS: BP 110/73
[2017-05-22] MEDS ORDERED: OXYCODONE HCL10 MG PO (15:31)
[2017-05-22 16:27] VITALS: BP 110/73
[2017-05-24 12:08] LABS: BODY FLUID ALBUMIN < 0.2 g/dL (()); BODY FLUID AMYLASE < 3 U/L (()); BODY FLUID GLUCOSE 4 mg/dL (()); BODY FLUID LDH 123 IU/L (()); BODY FLUID PROTEIN 0.5 g/dL (())
== END 2017-05-22 17:03 | disposition home health service (06) | DRG 556 ==
LOC: ER 12:28 → EROBS 14:08 → 4N 14:08
PROVIDERS: Emergency Medicine; Hospitalist; Internal Medicine; Physician Assistant Surgical; Registered Nurse
PROC: 0S9B3ZX Drainage of Left Hip Joint, Percutaneous Approach, Diagnostic (ICD-10-PCS; principal; 2017-05-21)
DX: M25.552 Pain in left hip (principal); R60.0 Localized edema; G89.29 Other chronic pain; I89.0 Lymphedema, not elsewhere classified; I87.8 Other specified disorders of veins; G20 Parkinson's disease; R53.81 Other malaise; R26.9 Unspecified abnormalities of gait and mobility; Z96.642 Presence of left artificial hip joint; K59.00 Constipation, unspecified; Z28.21 Immunization not carried out because of patient refusal; Z88.8 Allergy status to other drugs, medicaments and biological substances; Z98.62 Peripheral vascular angioplasty status; Z79.899 Other long term (current) drug therapy
CPT/HCPCS: 10790

== ENCOUNTER → 2017-06-14 | Outpatient (CLI) | payer OTHER ==
[~2017-06-14] MED LIST changes: +CIPROFLOXIN HC2.5 M1 OPHTHALMIC; +DUONEB 2.5-0.5 M3 ML INH; +FLOMAX0.4 MG PO; +OXYCODONE HCL5 MG PO; +TAMSULOSIN HCL0.4 MG PO; +VITAMIN B-12500 MCG PO; +VITAMIN D-32000 UNIT PO
--- NOTE | ~2017-06-14 | HPC ---
[facility] [place] [address] PAIN MANAGEMENT CONSULTATION Name: PANCHO STILL Room #: REG [facility] ArturoLamontMeghannLamont#: [id number] Admission: 06/14/17 Attend Phys: Dodie Ovalles MD Discharge: Date of : 60 Report #: [id number] THIS REPORT FOR: //name// CC: Dodie Garrett MD DATE OF SERVICE: 06/14/2017 FOLLOWUP COMPLAINT: "Here for medication renewal. Things are going reasonably okay. I was in the hospital." FOLLOWUP HISTORY: The patient is a 57-year-old gentleman who has been followed in the pain clinic because of chronic pain associated with lower extremity edema. He had been seen in the wound care clinic. He states that he continues to have some edema and swelling down in his legs. He rates it as a 7/10. He was seen in the hospital. He had some pain in his left hip, which has gotten progressively worse. He was unable to bear weight or walk. He generally uses a walker or cane at times and at times uses a wheelchair for longer distances. He had a hip replacement about 2 years ago. While admitted to the hospital, he was again seen by the Orthopedic Surgery Service. The joint was aspirated, they did not find any infection or crystals. He remained in the hospital for an appropriate amount of time and then was discharged. PHYSICAL EXAMINATION: GENERAL: The patient is in a wheelchair. His sister is present. VITAL SIGNS: Blood pressure is 148/94, respiratory rate is 20, pulse is 87, temperature 97, height 5 feet 10 inches, and weight is unobtainable as the patient is in a wheelchair. HEENT: Unremarkable. Has facial movements/slow responses consistent with chronic Parkinson's disease. EXTREMITIES: Legs are swollen and wrapped with pressurized dressing. IMPRESSION: 1. Parkinson's disease with slow movement in conjunction with his stage of Parkinsonism. 2. Chronic lymphedema in the lower extremities. The patient is wearing compression stockings. 3. History of venous insufficiency. 4. 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 5. History of fall in the past in June of 2016. 6. Left hip pain; evaluated, aspirated and no infection found while hospitalized. Vascular stenting of lower extremities. 7. Debility, gait abnormality, walks with use of a walker at home. RECOMMENDATIONS: We discussed treatment options with [place] [address] PAIN MANAGEMENT CONSULTATION Name: PANCHO STILL Room #: REG [facility]#: [id number] Admission: 06/14/17 Attend Phys: Dodie Ovalles MD Discharge: Date of : 60 Report #: [id number] explained the [facility] policy regarding opioid medications. We will adjust his medications to comply. A script for oxycodone 5/325 one p.o. has been written. He will call us if he has any problems with medications. We described possible complications with opioids which could include addiction and tolerance. The patient states that he keeps his medications in a guarded environment at home. We would like to thank you for letting us participate in his care. We hope he continues to improve. <ELECTRONICALLY SIGNED> By: Dodie Ovalles MD 06/26/17 0837 1426 0052 Dodie Ovalles MD /[facility]
[2017-06-14 11:00] VITALS: BP 148/94
== END ==
LOC: PAIN 07:11
DX: G25.89 Other specified extrapyramidal and movement disorders (principal); R60.0 Localized edema; G20 Parkinson's disease; I89.0 Lymphedema, not elsewhere classified; R53.81 Other malaise; R26.89 Other abnormalities of gait and mobility; Z91.81 History of falling

== ENCOUNTER → 2017-08-07 | Outpatient (CLI) | payer OTHER ==
--- NOTE | ~2017-08-07 | HPC ---
[facility] [place] [address] PAIN MANAGEMENT CONSULTATION Name: TESSYPANCHO P Room #: REG CAYDENEndy Andrea#: [id number] Admission: 08/07/17 Attend Phys: Dodie Ovalles MD Discharge: Date of : 60 Report #: [id number] THIS REPORT FOR: //name// CC: Dodie Garrett MD DATE OF SERVICE: 08/07/2017 FOLLOWUP COMPLAINT: Here for medication refill and I am still having swelling down in my legs. FOLLOWUP HISTORY: The patient is a 57-year-old gentleman who has been followed in the pain clinic suffers from Parkinson's disease. He continues to have extreme swelling in his lower extremities with edema. Because of this edema, he continues to have pain and discomfort in his legs, they are swollen, sometimes weep. Continues to take medications per his primary physician to help decrease the swelling. He tries to keep his legs elevated as much as possible. He is in the wheelchair for a great amount of time. Does note that his hips continue to be painful as well. As you recall, he has had some hip replacement surgery. Overall, he has been doing reasonably well since we saw him last. We have discussed the need to comply with the CDC recommendations regarding use of opioid medications. The patient feels that he is not having any withdrawal problems. Does not feel like he is having any problems with tolerance. He would like to continue with his medications. No significant problems with thinking. No significant problems with his bowel or bladder at this point. ALLERGIES: No known drug allergies. CURRENT MEDICATIONS: Include OxyIR 10 mg of oxycodone b.i.d., oxycodone 5 mg 1-2 p.o. p.r.n. q.8h, Requip 0.25 mg t.i.d., vitamin B12 500 mg, vitamin D3 2000 units, Colace 100 mg total of 2 tablets at bedtime p.r.n. constipation, Lasix 40 mg b.i.d., potassium 20 mEq daily, carbidopa/levodopa 25/100 mg for Parkinson's. PAIN CLINIC ASSESSMENT: 1. The patient does have osteoarthritis, has had a hip replacement. 2. Height 5 feet 10 inches, weight 245 pounds, BMI is 35. 3. Vital signs, blood pressure 143/83, pulse 72, respiratory rate 18, room air saturations 100%. 4. Pain intensity 7/10. 5. Fall risk. The patient does need assistance with walking. He has not fallen in the last 3 months. He does use a walker. 6. The patient is not on any blood thinners. 7. The patient is being treated currently for hypertension. 8. Opioid use greater than 6-week ____. The patient has a contract signed with our pain clinic. [address] [address] PAIN MANAGEMENT CONSULTATION Name: TESSYPANCHO Room #: REG [facility].#: [id number] Admission: 08/07/17 Attend Phys: Dodie Ovalles MD Discharge: Date of : 60 Report #: [id number] 9. The patient's opioid risk was 0, which was low. 10. Functional assessment tool indicated 60/70 in regards to general activity, mood, walking ability, work, relationships with others, sleep, enjoyment of life: PHYSICAL EXAMINATION: GENERAL: The patient is a black male. He is in a wheelchair. Appears to be his stated age. Orientation: The patient is alert and oriented. AFFECT: Patient is appropriate. He does have a flat affect associated with Parkinson's. He is somewhat slow to talk secondary to the Parkinson's. HEENT: Head is atraumatic. Extraocular muscles intact. Hearing appears normal. Does not complain of any sinus problems, moist buccal membranes. NECK: Without adenopathy. LUNGS: Clear to auscultation. HEART: Regular rate. MUSCULOSKELETAL: Seems to have normal alignment. The patient is in a wheelchair. Lower extremities: The patient does have significantly swollen legs from the ankles to the knee area. He does have compression stockings in place. Movements are slow and consistent with Parkinson's. IMPRESSION: 1. Parkinson's disease with slow movement and consistent with his stage of Parkinsonism. 2. Chronic lymphedema in the lower extremities. The patient is wearing compression stockings. 3. History of venous insufficiency. 4. 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 5. History of fall in the past in 06/2016, has not fallen since then. The patient has been advised to wear a helmet when at home. He did have his helmet on at the time of that fall and precluded significant injury. 6. Left hip pain, status post hip replacement, continues to be followed as needed by his orthopedic surgeon. 7. Disability gait abnormality, walks with the use of a walker at home. RECOMMENDATIONS: We discussed treatment options with the patient. At this juncture, we will continue with his current medications. We have decreased his opioid medication. With the decrease of oxycodone immediate release from 10 mg t.i.d. to 10 mg b.i.d. Hopefully, the patient will not have a problem with this. We again explained to him the concern now-a-days regarding use of opioid medications. We discussed the possible complications of addiction as well as tolerance, which could develop. At this juncture, the patient feels like it is reasonable to make these changes and we will call us if he has any problems with his medications. His sister is in the room and in accordance with our changes. [address] [address] PAIN MANAGEMENT CONSULTATION Name: TESSYPANCHO Room #: REG [facility]#: [id number] Admission: 08/07/17 Attend Phys: Dodie Ovalles MD Discharge: Date of : 60 Report #: [id number] We would like to thank you for letting us participate in his care. We hope he continues to improve. <ELECTRONICALLY SIGNED> By: Dodie Ovalles MD 08/28/17 1434 1020 9023 Dodie Ovalles MD /[facility]
[2017-08-07 13:29] VITALS: BP 143/83
== END ==
LOC: PAIN 06:56
DX: I89.0 Lymphedema, not elsewhere classified (principal); G20 Parkinson's disease; M25.552 Pain in left hip; Z96.642 Presence of left artificial hip joint; I87.2 Venous insufficiency (chronic) (peripheral)

== ENCOUNTER 2017-09-11 14:18 | Inpatient (IN) | payer OTHER ==
[~2017-09-11] VITALS: Ht 177.8 cm; Wt 90.7 kg
--- NOTE | ~2017-09-11 | HC ---
[facility] [place] [address] CONSULTATION Name: TESSYPANCHO Minerva Room #: 459-P [facility] IN ..#: [id number] Admission: 09/11/17 Attend Phys: Cecil Krueger MD Discharge: 09/13/17 Date of : 60 Report #: [id number] THIS REPORT FOR: //name// CC: Cecil Garrett DATE OF SERVICE: 09/12/2017 HISTORY OF PRESENT ILLNESS: The patient is a 57-year-old -[place] male previously known to me. The patient has a prior history of Parkinson's disease, bilateral lower extremity lymphedema. He is premorbidly ambulatory with a walker. He was admitted with increased weakness, cough and question of bronchitis. He has weakness with some physical deconditioning. He has the chronic lymphedema with venous stasis. We are seeing him in rehabilitation medicine consultation. PAST MEDICAL HISTORY: Prior [address] [place] [address] rehabilitation stay in 01/2017. He has a history of prior left femoral neck fracture with hemiarthroplasty in 2014, bilateral lower extremities when stenting in 2016. He has a history of Parkinson's disease. MEDICATIONS: Please see the full medication listing. SOCIAL HISTORY: He lives in a house with his mother and sister. He lives in the basement with a full flight of steps to get down there. Once he is down there, he can stay on that one floor. His sister comes over and helps him with the shower and some of his dressing. He has neighbors that are involved. REVIEW OF SYSTEMS: Complains of some coughing. No chest pain or abdominal discomfort. He has lower extremity swelling and edema. He does have the slow movement with his Parkinson's disease. 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 PHYSICAL EXAMINATION: GENERAL: A 57-year-old -[place] male in no obvious distress. VITAL SIGNS: Last recorded temperature 98, pulse 97, respirations 20, blood pressure 153/95. NEUROLOGIC: The patient is alert, pleasant. He has evidence of some masked facies. EOMs appeared to be full. He has a well-healed scar over his scalp. Upper extremities reveal cogwheeling of both wrists and elbows. Strength is grade 4-/5. DTRs trace to 1. In his lower extremities, he has the lower extremity edema. He has some bradykinesia. Strength is grade 4-/5. DTRs are decreased. He needs assistance with basic transfers. He is currently max assist supine to sit. Noted to be dependent toileting. As reported that he has a lift chair that pulls him up to a standing position. [address] [address] CONSULTATION Name: TESSYPANCHO Room #: 459-P [facility] IN M.R.#: [id number] Admission: 09/11/17 Attend Phys: Cecil Krueger MD Discharge: 09/13/17 Date of : 60 Report #: [id number] ASSESSMENT: A 57-year-old -[place] male with the following problem list: 1. Medical complexity with generalized debilitation. 2. Parkinson's disease. 3. Cough with question of bronchitis. 4. Chronic lymphedema with venous stasis. 5. Reported hallucination, question Parkinson's, medication side effect. Being monitored while inpatient. 6. Chronic pain syndrome. 7. Peripheral vascular disease with bilateral stents. PLAN: Occupational Therapy is to evaluate. He is being considered regarding his rehab therapy needs. We will continue to follow along with you. <ELECTRONICALLY SIGNED> By: Jaime Hogan MD 09/20/17 1408 1125 1247 Jaime Hogan MD /nt
[~2017-09-11 14:18] MED LIST changes: -CIPROFLOXIN HC2.5 M1 OPHTHALMIC; -DUONEB 2.5-0.5 M3 ML INH; -FLOMAX0.4 MG PO; -OXYCODONE HCL5 MG PO; -TAMSULOSIN HCL0.4 MG PO; -VITAMIN B-12500 MCG PO; -VITAMIN D-32000 UNIT PO
[2017-09-11 14:21] VITALS: BP 126/71
[2017-09-11 15:20] LABS: URINE BILIRUBIN 1+ (Negative); URINE BLOOD NEGATIVE (Negative); URINE CLARITY CLEAR; URINE COLOR YELLOW; URINE GLUCOSE-RANDOM* NEGATIVE (Negative); URINE KETONES NEGATIVE (Negative); URINE LEUKOCYTES-REFLEX NEGATIVE (Negative); URINE NITRITE-REFLEX NEGATIVE (Negative); URINE PROTEIN (DIPSTICK) NEGATIVE (Negative)
[2017-09-11 15:23] LABS: ICTOTEST (BILI CONFIRMATORY) Negative (Negative)
[2017-09-11 15:54] LABS: CALCIUM 9.2 mg/dL (8.5-10.1); CREATININE 0.9 mg/dL (0.7-1.3); POTASSIUM 4.6 mmol/L (3.5-5.1)
[2017-09-11 15:55] LABS: MAGNESIUM 2.2 mg/dL (1.8-2.4)
[2017-09-11 16:36] LABS: HEMATOCRIT 38.4 % (42.0-52.0); HEMOGLOBIN 12.5 gm/dL (14.0-18.0); MCH 28.7 pg (26.0-34.0); MCHC 32.6 g/dL (28.0-37.0); PLATELET COUNT 197 thou/uL (150-400); RBC 4.36 mil/uL (4.50-6.00); RDW 14.7 % (10.5-14.5); WBC 4.3 thou/uL (4.0-11.0)
[2017-09-11 17:13] LABS: ABSOLUTE NEUTROPHILS 2.2 thou/uL (1.4-8.2)
[2017-09-11 17:49] VITALS: BP 126/71
[2017-09-11 19:34] VITALS: BP 131/72
[2017-09-11 20:30] VITALS: BP 160/77
[2017-09-12] VITALS: BP 128/76
[2017-09-12 05:41] VITALS: BP 108/72
[2017-09-12 08:37] VITALS: BP 153/95
[2017-09-12 16:37] VITALS: BP 142/90
[2017-09-12 19:50] VITALS: BP 122/75
[2017-09-13 04:32] VITALS: BP 133/82
[2017-09-13 05:25] LABS: HEMATOCRIT 38.6 % (42.0-52.0); HEMOGLOBIN 12.6 gm/dL (14.0-18.0); MCH 28.3 pg (26.0-34.0); MCHC 32.6 g/dL (28.0-37.0); MCV 86.8 fL (80.0-100.0); RBC 4.45 mil/uL (4.50-6.00); RDW 14.8 % (10.5-14.5)
[2017-09-13 05:30] LABS: CALCIUM 8.7 mg/dL (8.5-10.1); CREATININE 0.9 mg/dL (0.7-1.3); POTASSIUM 4.4 mmol/L (3.5-5.1)
[2017-09-13 08:00] VITALS: BP 115/76
[2017-09-13] MEDS ORDERED: REQUIP 0.25 M0.25 MG PO (11:13)
[2017-09-13] MEDS ORDERED: DUONEB 2.5-0.5 M3 ML INH (11:25)
[2017-09-17 00:07] LABS: ADENOVIRUS Negative (Negative); INFLUENZA A Negative (Negative); INFLUENZA B Negative (Negative); METAPNEUMOVIRUS Negative (Negative); PARAINFLUENZA 1 Negative (Negative); PARAINFLUENZA 2 Negative (Negative); PARAINFLUENZA 3 Negative (Negative); RHINOVIRUS Negative (Negative); RSV A Negative (Negative); RSV B Negative (Negative)
== END 2017-09-13 14:53 | disposition short-term general hospital (02) | DRG 203 ==
LOC: ER 14:18 → 4W 17:14 → EROBS 17:14 → 4W 19:23
PROVIDERS: Emergency Medicine; Hospitalist; Nurse Practitioner
DX: J40 Bronchitis, not specified as acute or chronic (principal); Z96.642 Presence of left artificial hip joint; I73.9 Peripheral vascular disease, unspecified; G89.29 Other chronic pain; G20 Parkinson's disease; I89.0 Lymphedema, not elsewhere classified; I87.8 Other specified disorders of veins; Z28.21 Immunization not carried out because of patient refusal; Z87.311 Personal history of (healed) other pathological fracture; Z79.899 Other long term (current) drug therapy; Z88.5 Allergy status to narcotic agent
CPT/HCPCS: 10040

== ENCOUNTER 2017-09-13 12:44 | Inpatient (IN) | payer OTHER ==
[~2017-09-13] VITALS: Ht 177.8 cm; Wt 97.0 kg
--- NOTE | ~2017-09-13 | PLAN ---
[facility] [place] [address] REHAB UNIT PLAN OF CARE Name: PANCHO STILL Minerva Room #: 503-P ADM IN M.R.#: [id number] Admission: 09/13/17 Attend Phys: Jaime Hogan MD Discharge: Date of : 60 Report #: [id number] THIS REPORT FOR: //name// CC: Jaime Garrett DATE OF SERVICE: 09/16/2017 PROGRESS NOTE/OVERALL PLAN OF CARE SUBJECTIVE: The patient is seen back today in followup. He is in no distress. Last recorded temperature 97.8, pulse 85, respirations 18, blood pressure 100/69. The patient is alert. HEENT appeared to be benign. He does have a masked facies, some resting tremor. Bilateral lower extremities are wrapped. Transfers are mod assist. Once up, he is ambulating min assist 6 feet with a front-wheeled walker. Lower body dressing is dependent. He has mild comprehensive deficits. ASSESSMENT: 1. Medical complexity with generalized debilitation. 2. Parkinson's disease. 3. Cough with question of bronchitis. 4. Chronic lymphedema with venous stasis. 5. Reported hallucinations, question Parkinson's medication side effects. 6. Chronic pain syndrome. 7. Peripheral vascular disease with bilateral stents. PLAN: Bronchitis is noted to be improved. The overall plan of care is based on the preadmission screen, post-admission physician evaluation and information garnered from therapy assessments. 1. Estimated length of stay is at least 10 days to 2 weeks and likely longer as needed. 2. Medical prognosis is reasonably good. 3. Anticipated interventions includes the interdisciplinary acute inpatient rehabilitation program with the goal of maximizing the patient's functional independence, so that he can hopefully return back to his prior living situation. 4. Anticipated functional outcomes would be for the patient to become modified independent with transfers and mobility issues at a walker level. He is likely going to need some continued ADL assistance, but hopefully to get to the point where the family can care for him back in the home setting. 5. Discharge destination would be back home where he has been living with family before once he is functioning better. 6. Expected therapy by discipline includes PT and OT as well as some speech therapy 1 hour per day each 5 days a week throughout the duration of the acute [place] [id number] REHAB UNIT PLAN OF CARE Name: PANCHO STILL Room #: 503-P [facility] IN [facility]#: [id number] Admission: 09/13/17 Attend Phys: Jaime Hogan MD Discharge: Date of : 60 Report #: [id number] inpatient rehabilitation stay. We may be able to taper down some of the speech therapy in favor of more PT and OT, but we will need to see what his needs are. <ELECTRONICALLY SIGNED> By: Jaime Hogan MD 09/20/17 1408 0820 0928 Jaime Hogan MD /[facility]
--- NOTE | ~2017-09-13 | HC ---
[facility] [place] [address] CONSULTATION Name: PANCHO STILL Room #: 503-P ADM IN M.R.#: [id number] Admission: 09/13/17 Attend Phys: Jaime Hogan MD Discharge: Date of : 60 Report #: [id number] THIS REPORT FOR: //name// CC: Jaime Hogan Karolina Jettmez DATE OF SERVICE: 09/15/2017 AGE: 57. ATTENDING PHYSICIAN: Jaime Hogan MD CUSTOMER SERVICE TECHNICIAN: Chau Frost, PhD CLINICAL PRESENTATION: The patient is a 57-year-old -Taiwanese male admitted to the [facility] rehabilitation unit for comprehensive inpatient rehabilitation program to improve functional mobility, activities of daily living, self-care and mental status. The patient carries a diagnosis of Parkinson's disease. His admitting assessment is medical complexity with generalized debility. Additional symptoms include bronchitis, chronic lymphedema with venous stasis, hallucinations, chronic pain syndrome and peripheral vascular disease with bilateral stents. A complete description of his medical condition and history along with medications can be found in his medical record. Neuropsychological consultation was requested to provide assistance in the assessment of cognitive and emotional status to provide recommendations and services. Prior to this most recent medical event, he was living at home with the help of his siblings. The patient lives in the basement room of a house with his mother. He has 5 siblings. His sisters provide assistance in the management of instrumental and basic activities of daily living. The patient has an 11th grade education. 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 The patient has never and has no children. TECHNIQUES UTILIZED: Clinical interview, review of medical records, staff consultation and behavioral observation, mini mental status exam 2 standard version and verbal fluency assessment (category and brief abstract reasoning test). EXAMINATION FINDINGS: The patient has had intermittent visual hallucinations. The visual hallucinations are described by his family to be somewhat worsened by parkinsonian medication. However, he describes having intermittent hallucinations prior to the utilization of parkinsonian medication. Additionally, his sister reports the patient to have not been taking his medication consistently. They would set it up, but the patient would often be noncompliant with taking it. Additionally, his family reports him taking [facility] [address] [place] [address] CONSULTATION Name: PANCHO STILL Minerva Room #: 503-P [facility] IN [facility].#: [id number] Admission: 09/13/17 Attend Phys: Jaime Hogan MD Discharge: Date of : 60 Report #: [id number] oxycodone excessively. Excessive use of narcotics may have also been contributing to variability in his mental status. The patient has not been consistently compliant with taking prescribed medications as his family have set up in the pill organizers. The patient has a severe bradykinesia. He reports difficulty with depression. He does not indicate difficulty with appetite, sleep or memory. Diminished word finding is noted during the interview. Very slow thought processing is evident and also his sister reports it to be a problem while he is at home. The patient describes as being unable to process more than one command at a time in carrying out activities, in carrying out directions and engaging in specific activity. His performance on the mini mental status exam was within normal limits for the brief version with a raw score of 15/16. Performance on the MMSE 2 standard version was within normal limits with a raw score of 27/30. Mild deficits are noted with immediate recall, 2/3 items and sustained concentration and attention as noted by 4/5 responses on serial 7's. The patient is unable to write a sentence and could not copy a simple geometric design. Performance on category fluency is extremely low with a T score of 20 and percentile rank of less than 1. Abstract reasoning test was in the impaired range with a raw score of 4/8. The patient is presenting with moderate to severe deficits in cognition associated with subcortical dysfunction that is likely a consequence of Parkinson's disease. Visual hallucinations as well as the severe nature of bradykinesia and impairment with verbal fluency and abstract reasoning are likely to interfere with his ability to engage in complex problem solving and executive functioning. 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 Unspecified depressive disorder. RECOMMENDATIONS: The use of narcotic medication should be lowered and discontinued if medically appropriate. Contributing to the variability in his cognition is likely to be the use of narcotic medication. He will also need supervision to take his medicine as prescribed and as set up by his family. He will require 24-hour care to assist in the management of medication, nutrition and self care. Visual hallucinations are likely associated with parkinsonian disease and possibly Lewy body disease. Consider the use of an antidepressant to assist with pain management, e.g., Cymbalta. [address] [place] [address] CONSULTATION Name: PANCHO STILL Room #: 503-P [facility] IN M.R.#: [id number] Admission: 09/13/17 Attend Phys: Jaime Hogan MD Discharge: Date of : 60 Report #: [id number] Thank you very much for allowing me to provide the consultation on this patient. <ELECTRONICALLY SIGNED> By: Chau Frost, PhD 09/22/17 1640 [id number] Chau Frost, PhD /nt
--- NOTE | ~2017-09-13 | H ---
[facility] [place] [address] HISTORY AND PHYSICAL Name: TESSYPANCHO Minerva Room #: 503-P [facility] IN M.R.#: [id number] Admission: 09/13/17 Attend Phys: Jaime Hogan MD Discharge: Date of : 60 Report #: [id number] THIS REPORT FOR: //name// CC: Jaime Garrett DATE OF SERVICE: 09/13/2017 HISTORY AND PHYSICAL/POST-ADMISSION PHYSICIAN EVALUATION HISTORY OF PRESENT ILLNESS: The patient is a 57-year-old -Yemeni male, previously known to me. He has a prior history of Parkinson's disease, bilateral lower extremity lymphedema. He was premorbidly ambulatory with a walker. He was originally admitted to [facility] with increased weakness, cough, and question of bronchitis. He was noted to have weakness with physical deconditioning. He has chronic lymphedema with venous stasis. He was noted to have medical complexity with generalized debilitation and has been admitted for acute in-hospital inpatient rehabilitation. PAST MEDICAL HISTORY: Includes history of a prior left femoral neck fracture with hemiarthroplasty in 2014, bilateral lower extremities stenting in 2016, and history of Parkinson's disease. MEDICATIONS: Please see the full medication listing. Each of these individually reconciled and includes vitamins, herbals, and supplements. SOCIAL HISTORY: Lives in a house with his mother and his sister. He lives in the basement with a full flight of steps to get down there. Once he is down there, he can stay on the floor. His sister comes over and helps with the shower and some of his dressing. He has neighbors that are involved. REVIEW OF SYSTEMS: He continues to have some coughing. No chest pain or abdominal discomfort. He has lower extremity swelling and edema and has a Reyes catheter placed, because he has had some diuretics for this. Apparently, he had a prior head injury in the remote past and he has noted that he has had a plate in his skull. PHYSICAL EXAMINATION: GENERAL: A 57-year-old white male, was seen earlier. He was rather sleepy, but responsive. VITAL SIGNS: Temperature 36.3, pulse 98, respirations 18, blood pressure 109/65. HEENT: He does have evidence of masked facies, facies otherwise symmetric. CHEST: Sounded clear to auscultation. CARDIAC: Regular rate and rhythm. ABDOMEN: Bowel sounds positive, nontender. [facility] [address] [place] [address] HISTORY AND PHYSICAL Name: PANCHO STILL Minerva Room #: 503-P [facility] IN [facility]#: [id number] Admission: 09/13/17 Attend Phys: Jaime Hogan MD Discharge: Date of : 60 Report #: [id number] GENITOURINARY AND RECTAL: Deferred. Reyes catheter is noted. NEUROLOGIC: He does have cogwheeling of both wrists and elbows with some rigidity of upper extremities. Strength is grade 3+ to 4-/5. DTRs are trace to 1. In his lower extremities, he has lower extremity edema with some bradykinesia with strength of grade 3+/5. Edema is probably at least 2+. He has been max assist with basic [id number]. It has been reported that he has a lift chair that has pulled him up into a standing position. ASSESSMENT: A 57-year-old -Yemeni male with the following problem list: 1. Medical complexity with generalized debilitation. 2. Parkinson's disease. 3. Cough with question of bronchitis. 4. Chronic lymphedema with venous stasis. 5. Reported hallucination, question Parkinson's, medication side effect. 6. Chronic pain syndrome. 7. Peripheral vascular disease with bilateral stents. PLAN: The patient is admitted for acute in-hospital inpatient rehabilitation. From a postadmission physician evaluation perspective, there are no relevant changes since the preadmission screening. Please see the above review of prior and current medical and functional conditions and comorbidities. Please see the patient's previous and current functional status. As far as risk of complications, she has the multiple medical comorbidities as noted above. The initial plan of care involves the interdisciplinary acute inpatient rehabilitation program with the goal of maximizing his functional independence, so he can hopefully return back to his prior living situation. The goal would be to improve his strength and endurance, functional mobility, and ADL independence to try to get him back to the home setting. Goal would be to have him up moving around better with mobility and ADLs at the walker level. Prognosis is reasonably good with estimated length of stay probably fairly long with his lower functional level. Potential barriers would include his multiple medical comorbidities and decreased functional status. The patient meets diagnostic criteria for an acute in-hospital inpatient rehabilitation stay. He meets medical necessity criteria and we will have the health care consultant physicians continue to follow. He does have the tolerance to therapies and has appropriate discharge goals back to the home setting. <ELECTRONICALLY SIGNED> By: Jaime Hogan MD 09/20/17 1408 [id number] Jaime Hogan MD /nt
[~2017-09-13 12:44] MED LIST changes: +DUONEB 2.5-0.5 M3 ML INH
[2017-09-13 14:45] VITALS: BP 121/79
[2017-09-13 20:01] VITALS: BP 109/65
[2017-09-14 05:21] VITALS: BP 126/65
[2017-09-14 06:48] LABS: HEMATOCRIT 40.3 % (42.0-52.0); HEMOGLOBIN 13.3 gm/dL (14.0-18.0); MCH 28.6 pg (26.0-34.0); MCHC 33.1 g/dL (28.0-37.0); MCV 86.4 fL (80.0-100.0); RBC 4.66 mil/uL (4.50-6.00); RDW 14.7 % (10.5-14.5); WBC 7.3 thou/uL (4.0-11.0)
[2017-09-14 07:00] LABS: CALCIUM 9.2 mg/dL (8.5-10.1); CREATININE 1.1 mg/dL (0.7-1.3); POTASSIUM 4.3 mmol/L (3.5-5.1)
[2017-09-14 19:57] VITALS: BP 106/62
[2017-09-15 07:20] VITALS: BP 119/74
[2017-09-15 19:49] VITALS: BP 100/69
[2017-09-16 06:37] LABS: HEMATOCRIT 38.1 % (42.0-52.0); HEMOGLOBIN 12.6 gm/dL (14.0-18.0); MCH 28.5 pg (26.0-34.0); MCHC 33.1 g/dL (28.0-37.0); PLATELET COUNT 283 thou/uL (150-400); RBC 4.43 mil/uL (4.50-6.00); RDW 14.6 % (10.5-14.5); WBC 6.1 thou/uL (4.0-11.0)
[2017-09-16 06:54] LABS: CREATININE 0.9 mg/dL (0.7-1.3); POTASSIUM 4.4 mmol/L (3.5-5.1)
[2017-09-16 07:30] VITALS: BP 103/69
[2017-09-16 08:19] LABS: ABSOLUTE NEUTROPHILS 3.1 thou/uL (1.4-8.2)
[2017-09-16 08:23] LABS: ANISOCYTOSIS 1+; OVALOCYTES FEW; POLYCHROMASIA OCCASIONAL
[2017-09-16 19:05] VITALS: BP 121/75
[2017-09-17 07:45] VITALS: BP 134/88
[2017-09-17 19:20] VITALS: BP 113/74
[2017-09-18 07:30] VITALS: BP 114/77
[2017-09-18 19:29] VITALS: BP 121/75
[2017-09-19 07:30] VITALS: BP 139/68
[2017-09-19 19:30] VITALS: BP 125/72
[2017-09-20 08:09] VITALS: BP 114/75
[2017-09-20 19:39] VITALS: BP 134/73
[2017-09-21 07:14] VITALS: BP 115/63
[2017-09-21 19:45] VITALS: BP 116/79
[2017-09-22 07:30] VITALS: BP 119/77
[2017-09-22 20:20] VITALS: BP 120/71
[2017-09-23 05:00] LABS: ABSOLUTE NEUTROPHILS 2.4 thou/uL (1.4-8.2); BASOPHILS 0.6 % (0.0-2.0); EOSINOPHILS 2.2 % (0.0-3.0); HEMOGLOBIN 11.6 gm/dL (14.0-18.0); LYMPHOCYTES 38.7 % (24.0-44.0); MCH 28.8 pg (26.0-34.0); MCV 87.4 fL (80.0-100.0); MONOCYTES 11.2 % (1.0-8.0); PLATELET COUNT 397 thou/uL (150-400); POLYS 47.3 % (36.0-66.0); RBC 4.01 mil/uL (4.50-6.00); RDW 14.9 % (10.5-14.5); WBC 5.1 thou/uL (4.0-11.0)
[2017-09-23 05:07] LABS: CALCIUM 8.7 mg/dL (8.5-10.1); CREATININE 0.8 mg/dL (0.7-1.3); MAGNESIUM 1.8 mg/dL (1.8-2.4); POTASSIUM 3.9 mmol/L (3.5-5.1)
[2017-09-23 07:08] VITALS: BP 113/68
[2017-09-23 16:25] VITALS: BP 113/68
[2017-09-23 16:35] VITALS: BP 113/68
[2017-09-23 20:09] VITALS: BP 115/72
[2017-09-24 08:00] VITALS: BP 125/79
[2017-09-24 09:34] VITALS: BP 113/68
[2017-09-24] MEDS ORDERED: B-12500 MCG PO ×2 (09:59→10:07)
[2017-09-24] MEDS ORDERED: FLOMAX0.4 MG PO ×2 (09:59→10:07)
[2017-09-24] MEDS ORDERED: CIPROFLOXIN HC2.5 M1 OPHTHALMIC (10:07)
[2017-09-24 16:16] VITALS: BP 113/68
== END 2017-09-24 17:53 | disposition home health service (06) | DRG 57 ==
PROVIDERS: Family Medicine; Nurse Practitioner; Physical Medicine & Rehabilitation
DX: G20 Parkinson's disease (principal); R53.81 Other malaise; G89.4 Chronic pain syndrome; F02.80 Dementia in other diseases classified elsewhere, unspecified severity, without behavioral disturbance, psychotic disturbance, mood disturbance, and anxiety; F32.9 Major depressive disorder, single episode, unspecified; I89.0 Lymphedema, not elsewhere classified; I87.8 Other specified disorders of veins; I73.9 Peripheral vascular disease, unspecified; J40 Bronchitis, not specified as acute or chronic; E53.8 Deficiency of other specified B group vitamins; E55.9 Vitamin D deficiency, unspecified; F01.50 Vascular dementia, unspecified severity, without behavioral disturbance, psychotic disturbance, mood disturbance, and anxiety; Z96.642 Presence of left artificial hip joint; Z95.820 Peripheral vascular angioplasty status with implants and grafts; Z87.81 Personal history of (healed) traumatic fracture; Z88.6 Allergy status to analgesic agent
CPT/HCPCS: 10112

== ENCOUNTER → 2017-10-02 | Outpatient (CLI) | payer OTHER ==
[~2017-10-02] MED LIST changes: +CIPROFLOXIN HC2.5 M1 OPHTHALMIC; +FLOMAX0.4 MG PO; +OXYCODONE HCL5 MG PO; +TAMSULOSIN HCL0.4 MG PO; +VITAMIN B-12500 MCG PO; +VITAMIN D-32000 UNIT PO
--- NOTE | ~2017-10-02 | HPC ---
[facility] [place] [address] PAIN MANAGEMENT CONSULTATION Name: TESSYPANCHO P Room #: REG [facility]y Andrea#: [id number] Admission: 10/02/17 Attend Phys: Dodie Ovalles MD Discharge: Date of : 60 Report #: [id number] THIS REPORT FOR: //name// CC: Dodie Garrett MD DATE OF SERVICE: 10/02/2017 FOLLOWUP COMPLAINT: Here for medications. FOLLOWUP HISTORY: The patient is a 57-year-old gentleman. As you recall, he suffers from Parkinson's disease. He is pretty much wheelchair bound. He finds that he is having pain and discomfort, which continues to be problematic. It involves his lower extremities with swelling and edema. He notes that use of his medication is helpful. He is able to go up and down stairs with use of his medications. He has had some problem with his Parkinson's that it was not as well controlled. He states that there have been some changes in his medication and he has noted some slight improvement in his condition. He has had no problems with his current medications. He has had hip replacement surgery. He has not had any withdrawal symptoms. He finds that the medications continue to be helpful and would like to continue their use. We can talk to him in regards to the need for us to remain in the area of the CDC's recommendation for opioid medications. Denies any problems with his bowel or bladder function. Does note some increased swelling in his legs. States that he is given a water pill to help mobilize some of the fluid. ALLERGIES: No known drug allergies. CURRENT MEDICATIONS: OxyIR 10 mg 1 p.o. b.i.d., oxycodone 5 mg 1-2 p.o. q.8 hours p.r.n., Requip 0.25 mg t.i.d., vitamin B12 500 mg, vitamin D3 2000 units, Colace 100 mg total of 2 tablets at bedtime for constipation, Lasix 40 mg b.i.d., potassium 20 mEq, carbidopa/levodopa 25/100 for Parkinson's. PAIN CLINIC ASSESSMENT: 1. The patient does have some arthritic problems with pain in his hip and has had hip replacement. 2. Height 5 feet 10 inches, weight 210 pounds, BMI is 35. 3. Vital Signs: Blood pressure 138/99, pulse 74, respiratory rate 14, room air saturation 99%. 4. Pain intensity 8/10. 5. Fall risk. The patient has not fallen in the last 3 months. He does require some assistance with walking. Does use a walker. He perceives some increased weakness in his leg when he is standing. 6. Blood thinner. The patient is not on a blood thinner. 7. History of hypertension. The patient [place] [address] PAIN MANAGEMENT CONSULTATION Name: PANCHO STILL Minerva Room #: REG [facility].#: [id number] Admission: 10/02/17 Attend Phys: Dodie Ovalles MD Discharge: Date of : 60 Report #: [id number] 8. Opioid contract. The patient is receiving medications from the pain clinic and gets his medication from 1 source. 9. Assessment tool too low for opioids. 10. Functional assessment tool. 11. Recreational drug use. The patient denies use of recreational drugs. 12. Tobacco: The patient has never smoked. 13. Alcohol use. The patient denies use of alcoholic beverages. PHYSICAL EXAMINATION: GENERAL: The patient is a well-developed black male. He is in a wheelchair. He appears his stated age. He is alert and oriented x 3. Does have some affect, which is consistent with that of Parkinson's, which is flat. Talks slowly and softly. HEENT: Normocephalic, atraumatic. Extraocular eye muscles intact. Hearing is within normal limits. Mucous membranes are moist. Sclerae are nonicteric. NECK: Without adenopathy. Good range of motion, but slow. LUNGS: Clear to auscultation. HEART: Regular rate. ABDOMEN: Nontender. MUSCULOSKELETAL: The patient is sitting in the bed. Has somewhat bent and slow movement secondary to Parkinson's changes. Has swelling and swollen legs, which have compression garments in place. Movements are slow and consistent with Parkinson's disease. IMPRESSION: 1. Parkinson's disease with slow movement and consistent with his stage of Parkinsonism. 2. Chronic lymphedema in the lower extremities. The patient is wearing compression stocking. 3. History of venous insufficiency. 4. 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 5. Fall in the past in July 2016, has not fallen since then. 6. Left hip pain, status post hip replacement. The patient continues to need and followed by his orthopedic surgeon. 7. Disability with gait abnormality. Walks with use of a walker at home. RECOMMENDATIONS: We discussed treatment options with the patient. At this point, we will continue with his current medications. He states that he had some problems with his breathing. He felt like he may have had some congestion problems. He was coughing up green phlegm. He was in rehab for about 2 weeks. He has had a nurse at his house to help him with therapy. Note that he has had some changes in his Parkinson's medication. He feels that there has been some slight improvement overall. Feels his medications are helpful and would like to continue their use. We have rewritten a script for oxycodone IR 5 mg and oxycodone 10 mg 1 p.o. b.i.d. The patient will call us if he has any problems. [facility] [address] [place] [address] PAIN MANAGEMENT CONSULTATION Name: TESSYPANCHO Room #: REG CL Emre#: [id number] Admission: 10/02/17 Attend Phys: Dodie Ovalles MD Discharge: Date of : 60 Report #: [id number] We would like to thank you for letting us participate in his care. We hope he continues to do well. <ELECTRONICALLY SIGNED> By: Dodie Ovalles MD 10/16/17 0825 1403 2105 Dodie Ovalles MD /PEPPER
[2017-10-02 08:56] VITALS: BP 138/99
== END ==
LOC: PAIN 06:55
DX: G20 Parkinson's disease (principal); M25.552 Pain in left hip; I87.2 Venous insufficiency (chronic) (peripheral); I10 Essential (primary) hypertension; I89.0 Lymphedema, not elsewhere classified; R26.9 Unspecified abnormalities of gait and mobility; Z96.642 Presence of left artificial hip joint

== ENCOUNTER 2017-10-07 10:03 | Inpatient (IN) | payer OTHER ==
[~2017-10-07] VITALS: Ht 177.8 cm; Wt 95.3 kg
--- NOTE | ~2017-10-07 | O ---
[facility] [place] [address] OPERATIVE REPORT Name: PANCHO STILL Room #: 428-P ADM IN .R.#: [id number] Admission: 10/07/17 Attend Phys: Cecil Krueger MD Discharge: Date of : 60 Report #: [id number] THIS REPORT FOR: //name// CC: Cecil Garrett DATE OF SERVICE: 10/11/2017 PERSONAL PHYSICIAN: None on staff. CHIEF COMPLAINT: Right hand blisters secondary to crush injury. PROCEDURE: Selective epidermal debridement of a total of 110 cm2. PREPROCEDURE DIAGNOSES: 1. Multiple serous blisters to the right hand secondary to crush injury. 2. History of parkinsonism with debility. 3. Status post fall. POSTPROCEDURE DIAGNOSES: 1. Multiple serous blisters to the right hand secondary to crush injury. 2. History of parkinsonism with debility. 3. Status post fall. DESCRIPTION OF PROCEDURE: After timeout was taken, verbal consent was obtained. The patient had selective debridement of all the blisters on his volar and palmar surface of his right hand with removal of denuded epidermal tissue. 75% of the wounds were debrided for a total of 110 cm2 totally debrided. Preprocedure measurements were 17.3 x 8.5 x cm. Post-debridement measurements were 17.3 x 8.5 x 0.1 cm. Once again 75% of the wounds were debrided. Was debrided down to healthy dermal tissue. Bleeding was minimal, easily controlled with pressure. Scalpel and forceps were used for the debridement. No anesthetic was used for the debridement. The patient tolerated the procedure well. Post-debridement, sterile dressing was placed over the hand for temporary dressing. We will actually start placing morphine Silvadene compound over the hand for healing and pain relief. This will be covered with Xeroform, ABDs and Kerlix. By: [id number] Rakesh Hayes MD /nt
--- NOTE | ~2017-10-07 | HC ---
[facility] [place] [address] CONSULTATION Name: PANCHO STILL Minerva Room #: 428-P ADM IN M.R.#: [id number] Admission: 10/07/17 Attend Phys: Cecil Krueger MD Discharge: Date of : 60 Report #: [id number] THIS REPORT FOR: //name// CC: Cecil Garrett MD DATE OF SERVICE: 10/10/2017 INTRODUCTION: The patient is a 57-year-old male who is being seen for a general foot care more specifically, as it pertains to a trauma to his right medial 3 toes. This individual has a history of Parkinson's disease and has significant mobility and instability issues. He incurred a recent fall 4 days ago, which has brought him to the hospital. During the injury, he had incurred injury to his right hallux, second and third toenails, which were extremely dystrophic and long. Remainder of his past medical history with regard to this consultation is otherwise not remarkable. PEDAL EXAM: Dorsalis pedis and posterior tibial pulses are graded at 1/4. Capillary refill time is within normal limits. The patient has profound lower extremity edema with skin sequelae including induration and skin dystrophy. His dermatologic exam reveals severely elongated, thickened dystrophic nails on both feet. These nails have not been apparently trimmed in many months. The longest nails are over 2 cm in length. The right hallux, second and third toenails demonstrate periungual hematoma, which is at the nailbed level. These nails are lifted; however, the hematoma areas are consolidated and fairly firm. There is no drainage at this time. There is old blood in the webspaces where these nailbeds had apparently drained at one point. No evidence of infection or purulence. The noninjured nails were all initially trimmed and then, the right hallux and second toenails were debrided with inspection of the nailbed. These nails are reasonably firmly attached and following debridement of the nails, there is no discharge yet the nailbed blisters were somewhat boggy. The nails were all then mechanically ground. The hallux, second and third toes were dressed with sterile compression dressings. There is no other pathology at the time of evaluation. IMPRESSION: 1. Peripheral lower extremity edema. 2. Onychodystrophy associated with onychomycosis and other trophic factors including edema. 3. Subungual hematoma, right hallux, second and third toes. PLAN: The patient's condition was evaluated and treated as noted above. I will check in with him during his hospital stay to follow his progress. These nails will likely consolidate to some degree and eventually either sloughed [address] [address] CONSULTATION Name: PANCHO STILL Room #: 428-P [facility] IN M.R.#: [id number] Admission: 10/07/17 Attend Phys: Cecil Krueger MD Discharge: Date of : 60 Report #: [id number] spontaneously or require debridement. Circumstances that would predicate the need for total removal would include persistent drainage or signs or symptoms of infection. It is my pleasure having opportunity of working with the patient. I pleased to follow up with him upon request and I do anticipate seeing him in the next 4-5 days. He has been given my contact information for outpatient evaluation if he is discharged sooner. By: [id number] Roby Ortiz DPM /alexandro
--- NOTE | ~2017-10-07 | HC ---
[facility] [place] [address] CONSULTATION Name: TESSYPANCHO P Room #: 428-P [facility] IN ..#: [id number] Admission: 10/07/17 Attend Phys: Cecil Krueger MD Discharge: Date of : 60 Report #: [id number] THIS REPORT FOR: //name// CC: Cecil Garrett DATE OF SERVICE: 10/09/2017 CHIEF COMPLAINT: Lower extremity traumatic wound and right hand traumatic wound. HISTORY OF PRESENT ILLNESS: The patient is a 57-year-old black male with a history of Parkinson disease who was at home today and inadvertently fell and was unable to get back up off the ground. The patient states he laid on the ground for approximately 3 hours. Unfortunately, fell, he landed on his right hand and was lying on his right hand for approximately 3 hours before he was lifted up. The patient with the fall had several toenails on his right foot that were partially avulsed as well as his hand has developed now serous blisters from the pressure, but has no signs of a compartment syndrome. The patient also suffered an abrasion to his right knee. We have asked to assist in the care of all these wounds. The patient states he did not actually have any syncope with this event. He has no chest pain or shortness of breath. The patient states he did not hit his head and does not have any neck pain. A CT scan of the C-spine showed no acute changes in the Emergency Department. The patient denies any other associated wounds. The patient states his previous lymphedema and wounds on his legs that we have been following several years ago have now resolved. PAST MEDICAL HISTORY: Once again for Parkinson disease, history of peripheral arterial disease with bilateral lower extremity stents back in 07/2015, chronic lower extremity lymphedema secondary to venous stasis bilaterally, overall stable at this time. CURRENT MEDICATIONS: Multiple, I reviewed the patient's medication list. DRUG ALLERGIES: MORPHINE. SOCIAL HISTORY: The patient does not smoke or drink alcohol. Lives at home with his family. FAMILY HISTORY: Not pertinent to current medical condition. REVIEW OF SYSTEMS: CONSTITUTIONAL: The patient denies fevers or chills. NEUROLOGIC: The patient has a history of parkinsonism and has associated tremors. [address] [address] CONSULTATION Name: PANCHO STILL Room #: 428-P [facility] IN ..#: [id number] Admission: 10/07/17 Attend Phys: Cecil Krueger MD Discharge: Date of : 60 Report #: [id number] EYES: No complaints. ENT: No complaints. CARDIAC: The patient has mild chronic lower extremity edema, which is much improved from past. Denies chest pain or palpitation. RESPIRATORY: The patient denies shortness of breath, cough or wheezes. GASTROINTESTINAL: The patient denies nausea, vomiting or abdominal pain. GENITOURINARY: The patient denies urgency or frequency. MUSCULOSKELETAL: The patient has pain in his right hand after a compression injury. SKIN: There are multiple serous blisters on his right hand as well as avulsions of his toenails on the right and abrasion on his right knee. PHYSICAL EXAMINATION: VITAL SIGNS: Temperature 37.2, pulse 87, respirations 20, BP 138/86. GENERAL: This is an alert and oriented x 3, pleasant black male who is in mild to moderate distress secondary to his pain. HEENT: Normocephalic, atraumatic. Mucous membranes are dry. Pupils are round. Sclerae are white. NECK: Supple, nontender. LUNGS: Clear. HEART: Regular without murmur. ABDOMEN: Soft, otherwise nontender. EXTREMITIES: Evaluation of right upper extremity reveals swelling in his right hand with multiple serous blisters on the dorsal aspect of the hand extending around to the palmar aspect, which are still intact. There is one at the base of the thumb that has partially ruptured exposing the dermis underneath. There is no evidence of any deeper structures involved. Distal pulses are intact. Cap refill is less than 2 seconds. Distal neuro, the patient does complain of some paresthesias in his first, second and third digit. The patient is able to flex and extend his hand and his digits. There is no tenderness noted on the palmar aspect or in the fingers itself. No signs of infection. Evaluation of the right knee reveals an abrasion noted over the area of the right knee, which is clean, partial thickness with bloody drainage without odor. NEUROLOGIC: Cranial nerves 2-12 grossly intact. Motor and sensory grossly intact. LABORATORY VALUES: White count 5.5, hemoglobin 10.7. Albumin 2.0. IMPRESSION: 1. Traumatic injury to the right knee, partial thickness. 2. Crush injury to the right hand with serous blisters, but no signs of compartment syndrome. 3. Parkinsonism with debility. 4. Protein calorie malnutrition with albumin of 2.0. PLAN: [facility] [address] [place] [address] CONSULTATION Name: PANCHO STILL Room #: 428-P [facility] IN M.R.#: [id number] Admission: 10/07/17 Attend Phys: Cecil Krueger MD Discharge: Date of : 60 Report #: [id number] 1. Orthopedics has been consulted for the hand. They wish not to have surgical intervention at this time. We will leave the blisters intact, use Xeroform over the blisters and cover this with ABD and Kerlix. 2. Silver foam will be placed over the right knee, change this 3 times weekly. 3. We maximize the patient's oral protein supplementation for healing. While here, we will evaluate the patient for possible physical and occupational therapy as needed. We will continue to see the patient. By: 1323 [id number] Rakesh Hayes MD /nt
--- NOTE | ~2017-10-07 | HC ---
[facility] [place] [address] CONSULTATION Name: TESSYPANCHO Room #: 428-P [facility] IN M.R.#: [id number] Admission: 10/07/17 Attend Phys: Cecil Krueger MD Discharge: Date of : 60 Report #: [id number] THIS REPORT FOR: //name// CC: Cecil Garrett DATE OF SERVICE: 10/09/2017 CHIEF COMPLAINT: Right hand swelling. HISTORY OF PRESENT ILLNESS: The patient is a very pleasant 57-year-old gentleman seen today for evaluation of his right hand. The patient reports that sometime Saturday evening or early Saturday morning that he got up, fell and landed with his right upper extremity trapped underneath him. He landed in a forward facing position and reports some abrasions on his knees as well as he broke his right toenail. The patient reports a history of frequent falls and in review of some of the records at [facility], it sounds like he has had multiple admissions and has been strongly encouraged to be placed in a care home, which he apparently refuses. He otherwise lives at home with, he reported, his sister. He has bilateral chronic lymphedema. He reports diminished sensation in the thumb, index, and long fingers of the right hand as compared to the opposite side. He has a history of Parkinson's and reports that he is disabled due to this, he has multiple medical comorbidities. PAST MEDICAL HISTORY: Significant for multiple falls, back pain, bilateral leg pain, bilateral thigh pain, bronchitis, chest wall contusion, closed head injuries, chronic pain, compression fracture of L1, constipation, bilateral lower extremity lymphedema, Parkinson's and umbilical hernia. ALLERGIES: Include MORPHINE. CURRENT MEDICATIONS: Please see current MAR. PAST SURGICAL HISTORY: Left hip replacement, bilateral lower extremity stents for peripheral vascular disease in 07/2015, umbilical hernia repair. SOCIAL HISTORY: The patient reports that he is disabled. Denies alcohol, tobacco or recreational drug use. PHYSICAL EXAMINATION: VITAL SIGNS: Most recent vitals: Temperature 37.6, pulse 98, respirations 18, BP 116/72. GENERAL: The patient is alert, oriented, answering questions to the best of his ability. EXTREMITIES: Examination of the upper extremities reveals moderate swelling of the right hand and blistering of the skin, both dorsally and palmarly. This [address] [address] CONSULTATION Name: PANCHO STILL Minerva Room #: 428-P [facility] IN M.R.#: [id number] Admission: 10/07/17 Attend Phys: Cecil Krueger MD Discharge: Date of : 60 Report #: [id number] extends into the region of the proximal phalanx. Nursing has shown me photographs before his blisters had ruptured, so the hospitalist has documented this. The patient holds his fingers in a mildly flexed posture. He is able to initiate active extension and flexion. He has difficult time initiating abduction and adduction, this appears symmetric to the left hand, however. He reports sensation to light touch in all fingers, but it is diminished, more so in the thumb, index, and long fingers. Hand compartments appear soft and compressible, but there is a moderate amount of swelling. He has no pain with passive flex. He has brisk capillary refill and radial pulse is palpable. This does not appear to be an acute compartment syndrome, but more consistent with diffuse hand edema. There is a blister that extends from the palmar surface through the first webspace more dorsally which has ruptured, the underlying dermis appears intact. Tinel's is negative. He does not like being placed in wrist flexion to see if Phalen's increases his numbness or tingling and again this does not appear to be a complete sensory loss. He has minimal swelling within forearms. He is nontender over the elbow, arm and shoulders. The left upper extremity has no obvious injuries or wounds that are nonswollen. His ability to flex and extend the fingers and digit, he is able to mildly do so, but does not have good strength and dexterity on that side either. Pelvis is stable to AP and lateral compression. He has an abrasion about the size of a tennis ball on the anterior knee on the right side, minimal abrasion is appreciated on the left knee. He is otherwise nontender about the thighs. Compartments are soft. The legs demonstrate some edema extending down into the feet and his great toenail appears to have some coagulated bleeding from the undersurface. His toenails are quite long and appear to demonstrate some onychomycosis. The patient is lacking in a regular routine foot care. IMAGING: Radiographs were read as negative. LABORATORY DATA: Reviewed. Elevated creatine kinase of 11,000, which has trended down to 10,000 on yesterday's values. IMPRESSION: 1. Left hand pain and swelling status post fall with multiple blistering, probable acute carpal tunnel syndrome with rhabdomyolysis. 2. Lower extremity abrasions. PLAN: I have reviewed with the nursing staff. I would like to elevate and ice the right hand. Best time to have Occupational Therapy see him as well. I would like to discuss his carpal tunnel findings with my hand partner to see if we would like to give this further time or would recommend more urgent carpal tunnel release. Local wound care with 3 times daily soap and water washes can be performed on his wounds and blisters with sterile dressings reapplied. The patient may continue with gentle active and passive motion of the hand to minimize swelling. We will have Medicine and Hospitalist continue to follow his [facility] [address] [place] [address] CONSULTATION Name: TESSYPANCHO Room #: 428-P [facility] IN M.R.#: [id number] Admission: 10/07/17 Attend Phys: Cecil Krueger MD Discharge: Date of : 60 Report #: [id number] rhabdomyolysis from medical standpoint. We have also recommended Podiatry see and evaluate the patient forefoot and nail care. <ELECTRONICALLY SIGNED> By: Sheldon Pedraza MD 10/10/17 1328 [id number] Sheldon Pedraza MD /nt
[~2017-10-07 10:03] MED LIST changes: -TAMSULOSIN HCL0.4 MG PO; -VITAMIN B-12500 MCG PO; -VITAMIN D-32000 UNIT PO
[2017-10-07 10:04] VITALS: BP 152/67
[2017-10-07 13:49] LABS: ABSOLUTE NEUTROPHILS 8.1 thou/uL (1.4-8.2); BASOPHILS 0.5 % (0.0-2.0); EOSINOPHILS 0.1 % (0.0-3.0); HEMATOCRIT 38.4 % (42.0-52.0); HEMOGLOBIN 12.9 gm/dL (14.0-18.0); LYMPHOCYTES 9.3 % (24.0-44.0); MCHC 33.8 g/dL (28.0-37.0); MCV 85.9 fL (80.0-100.0); MONOCYTES 7.5 % (1.0-8.0); PLATELET COUNT 212 thou/uL (150-400); POLYS 82.6 % (36.0-66.0); RBC 4.46 mil/uL (4.50-6.00); RDW 15.3 % (10.5-14.5); WBC 9.8 thou/uL (4.0-11.0)
[2017-10-07 13:56] LABS: CALCIUM 8.8 mg/dL (8.5-10.1); POTASSIUM 3.9 mmol/L (3.5-5.1)
[2017-10-07 14:13] LABS: TOTAL BILIRUBIN 0.6 mg/dL (<0.1-1.0); TOTAL PROTEIN 7.3 g/dL (6.4-8.2)
[2017-10-07 15:47] VITALS: BP 157/88
[2017-10-07 19:59] VITALS: BP 162/98
[2017-10-08 00:27] VITALS: BP 176/98
[2017-10-08 04:52] LABS: CALCIUM 8.6 mg/dL (8.5-10.1); CREATININE 0.8 mg/dL (0.7-1.3); POTASSIUM 3.8 mmol/L (3.5-5.1)
[2017-10-08 05:22] LABS: HEMATOCRIT 36.9 % (42.0-52.0); HEMOGLOBIN 12.1 gm/dL (14.0-18.0); MCH 28.6 pg (26.0-34.0); MCHC 32.9 g/dL (28.0-37.0); MCV 87.1 fL (80.0-100.0); RBC 4.24 mil/uL (4.50-6.00); RDW 15.2 % (10.5-14.5); WBC 9.5 thou/uL (4.0-11.0)
[2017-10-08 05:29] VITALS: BP 145/93
[2017-10-08 07:49] VITALS: BP 133/80
[2017-10-08 16:00] VITALS: BP 131/82
[2017-10-08 19:20] VITALS: BP 123/72
[2017-10-09 03:36] VITALS: BP 116/72
[2017-10-09 07:15] VITALS: BP 139/93
[2017-10-09 08:37] LABS: URINE BILIRUBIN NEGATIVE (Negative); URINE BLOOD 2+ (Negative); URINE CLARITY CLEAR; URINE COLOR YELLOW; URINE GLUCOSE-RANDOM* NEGATIVE (Negative); URINE KETONES NEGATIVE (Negative); URINE LEUKOCYTES-REFLEX NEGATIVE (Negative); URINE NITRITE-REFLEX NEGATIVE (Negative); URINE PROTEIN (DIPSTICK) TRACE (Negative)
[2017-10-09 08:44] LABS: BACTERIA-REFLEX 1-9 Few /HPF (None Seen); CASTS None Seen /LPF (None Seen); CRYSTALS None Seen /LPF (None Seen); SQUAMOUS 0-3 Few /LPF (0-3); URINE WBC-REFLEX 0-5 Rare /HPF (0-5)
[2017-10-09 12:28] LABS: HEMATOCRIT 33.3 % (42.0-52.0); MCH 28.9 pg (26.0-34.0); MCHC 33.1 g/dL (28.0-37.0); MCV 87.3 fL (80.0-100.0); PLATELET COUNT 139 thou/uL (150-400); RBC 3.82 mil/uL (4.50-6.00); RDW 15.6 % (10.5-14.5)
[2017-10-09 12:52] LABS: CALCIUM 8.1 mg/dL (8.5-10.1); CREATININE 0.8 mg/dL (0.7-1.3); POTASSIUM 3.8 mmol/L (3.5-5.1); TOTAL BILIRUBIN 0.7 mg/dL (<0.1-1.0); TOTAL PROTEIN 5.9 g/dL (6.4-8.2)
[2017-10-09 13:01] LABS: PLATELET ESTIMATE NORMAL
[2017-10-09 20:15] VITALS: BP 110/65
[2017-10-10 04:30] VITALS: BP 138/86
[2017-10-10 04:55] LABS: HEMATOCRIT 32.4 % (42.0-52.0); HEMOGLOBIN 10.7 gm/dL (14.0-18.0); MCH 28.9 pg (26.0-34.0); MCHC 32.9 g/dL (28.0-37.0); MCV 87.7 fL (80.0-100.0); RBC 3.7 mil/uL (4.50-6.00); RDW 15.5 % (10.5-14.5); WBC 5.5 thou/uL (4.0-11.0)
[2017-10-10 05:10] LABS: CALCIUM 8.3 mg/dL (8.5-10.1); CREATININE 0.8 mg/dL (0.7-1.3)
[2017-10-10 08:00] VITALS: BP 129/76
[2017-10-10 15:00] VITALS: BP 128/81
[2017-10-10 20:21] VITALS: BP 114/61
[2017-10-11 03:30] VITALS: BP 124/81; BP 125/88
[2017-10-11 04:35] LABS: HEMATOCRIT 34.1 % (42.0-52.0); HEMOGLOBIN 11.2 gm/dL (14.0-18.0); MCH 28.6 pg (26.0-34.0); MCV 86.8 fL (80.0-100.0); RBC 3.93 mil/uL (4.50-6.00); RDW 15.2 % (10.5-14.5); WBC 5.7 thou/uL (4.0-11.0)
[2017-10-11 04:41] LABS: CALCIUM 8.5 mg/dL (8.5-10.1)
[2017-10-11 08:14] VITALS: BP 113/67
[2017-10-11 08:40] VITALS: BP 113/67
[2017-10-11 20:15] VITALS: BP 124/73
[2017-10-12 04:39] VITALS: BP 118/71
[2017-10-12 07:45] VITALS: BP 133/81
[2017-10-12 08:15] VITALS: BP 133/81
[2017-10-12] MEDS ORDERED: OXYCODONE HCL10 MG PO (12:43)
[2017-10-12] MEDS ORDERED: PERCOCET 5-3251 EACH PO (12:45)
== END 2017-10-12 15:45 | DRG 579 ==
LOC: ER 10:03 → 4E 15:03 → EROBS 15:03 → 4E 17:10
PROVIDERS: Emergency Medicine; Hospitalist
PROC: 0JBJ0ZZ Excision of Right Hand Subcutaneous Tissue and Fascia, Open Approach (ICD-10-PCS; principal; 2017-10-11)
DX: S40.822A Blister (nonthermal) of left upper arm, initial encounter (principal); G93.40 Encephalopathy, unspecified; M62.82 Rhabdomyolysis; E46 Unspecified protein-calorie malnutrition; S67.21XA Crushing injury of right hand, initial encounter; R29.6 Repeated falls; G20 Parkinson's disease; I73.9 Peripheral vascular disease, unspecified; L60.3 Nail dystrophy; B35.1 Tinea unguium; S90.121A Contusion of right lesser toe(s) without damage to nail, initial encounter; W18.30XA Fall on same level, unspecified, initial encounter; Z96.642 Presence of left artificial hip joint; Z68.30 Body mass index [BMI] 30.0-30.9, adult; Z95.820 Peripheral vascular angioplasty status with implants and grafts; Z87.81 Personal history of (healed) traumatic fracture; Z79.899 Other long term (current) drug therapy; Z88.5 Allergy status to narcotic agent; Y93.89 Activity, other specified; Y92.89 Other specified places as the place of occurrence of the external cause; Y99.8 Other external cause status
CPT/HCPCS: 10084

== ENCOUNTER 2017-11-05 11:56 | Emergency (ER) | payer OTHER ==
[~2017-11-05] VITALS: Ht 177.8 cm; Wt 93.0 kg
[2017-11-05 13:33] LABS: ABSOLUTE NEUTROPHILS 3.2 thou/uL (1.4-8.2); BASOPHILS 0.9 % (0.0-2.0); EOSINOPHILS 2.1 % (0.0-3.0); HEMATOCRIT 33.9 % (42.0-52.0); HEMOGLOBIN 11.1 gm/dL (14.0-18.0); LYMPHOCYTES 23.4 % (24.0-44.0); MCH 28.4 pg (26.0-34.0); MCHC 32.8 g/dL (28.0-37.0); MCV 86.7 fL (80.0-100.0); MONOCYTES 11.8 % (1.0-8.0); PLATELET COUNT 209 thou/uL (150-400); POLYS 61.8 % (36.0-66.0); RBC 3.91 mil/uL (4.50-6.00); WBC 5.2 thou/uL (4.0-11.0)
[2017-11-05 13:40] LABS: ANION GAP 6 mmol/L (7-16); BUN 8 mg/dL (7-18); CHLORIDE 104 mmol/L (98-107); CO2 30 mmol/L (21-32); CREATININE 0.8 mg/dL (0.7-1.3); GLUCOSE 95 mg/dL (74-106); POTASSIUM 3.8 mmol/L (3.5-5.1); SODIUM 140 mmol/L (136-145)
[2017-11-05 13:48] LABS: ALBUMIN 2.8 g/dL (3.4-5.0); SGOT 42 U/L (15-37); SGPT 26 U/L (30-65); TOTAL BILIRUBIN 0.6 mg/dL (<0.1-1.0); TOTAL PROTEIN 7.1 g/dL (6.4-8.2); TROPONIN-I < 0.04 ng/mL (<0.06)
[2017-11-05 18:13] LABS: URINE BILIRUBIN NEGATIVE (Negative); URINE BLOOD NEGATIVE (Negative); URINE CLARITY CLEAR; URINE COLOR YELLOW; URINE GLUCOSE-RANDOM* NEGATIVE (Negative); URINE KETONES NEGATIVE (Negative); URINE LEUKOCYTES-REFLEX NEGATIVE (Negative); URINE NITRITE-REFLEX NEGATIVE (Negative); URINE PROTEIN (DIPSTICK) NEGATIVE (Negative); URINE UROBILINOGEN 0.2 E.U./dl (0.2-1.0)
== END 2017-11-05 18:49 | disposition home or self-care (01) ==
LOC: ER 11:56
PROVIDERS: Nurse Practitioner
DX: I89.0 Lymphedema, not elsewhere classified (principal); G89.29 Other chronic pain; Z88.5 Allergy status to narcotic agent

== ENCOUNTER → 2017-11-13 | Outpatient (CLI) | payer OTHER ==
[~2017-11-13] VITALS: Ht 177.8 cm; Wt 95.3 kg
[~2017-11-13] MED LIST changes: +TAMSULOSIN HCL0.4 MG PO; +VITAMIN B-12500 MCG PO; +VITAMIN D-32000 UNIT PO
--- NOTE | ~2017-11-13 | HPC ---
[facility] [place] [address] PAIN MANAGEMENT CONSULTATION Name: PANCHO STILL Room #: REG [facility] Emre#: [id number] Admission: 11/13/17 Attend Phys: Dodie Ovalles MD Discharge: Date of : 60 Report #: [id number] THIS REPORT FOR: //name// CC: Dodie Garrett DATE OF SERVICE: 11/13/2017 FOLLOWUP COMPLAINT: "I was in the hospital. I fell and couldn't get up. I got some bruising of my hand, knee and toes." FOLLOWUP HISTORY: The patient is a 57-year-old gentleman who has been followed in the Pain Clinic. As you recall, he suffers from Parkinson's disease. Since we saw him last, he states that he fell at home. He was unable to get up. He was to lie face down and on his right arm for some period of time. He did note some significant damage. He lost some significant amount of skin on the right hand. He has a bruise on his knee and had loss and destruction of skin on the right toes. The patient states that he fell, was reaching for bedcovers to try and help himself up. The covers fell on him. He felt a sense of impending doom. Overall, things worked out well. He has been in the hospital for some time. They are managing his wounds. Possibility of skin grafting or surgery still is a possibility. Overall, things have gone reasonably well. The patient is quite happy that he is not going to lose or it does not appear that he will lose his arm. Because of the significant problems he had, his pictures which his sister's provided showed significant trauma to the affected area. It does not appear that he will need a skin graft over the top of his hand even though it appeared to be quite serious. ALLERGIES: No known drug allergies. CURRENT MEDICATIONS: OxyIR 10 mg one p.o. b.i.d., oxycodone 5 mg p.o. q. 8 hours p.r.n., Requip 0.25 mg t.i.d., vitamin B12 500 mg, vitamin D3 2000 units, Colace 100 mg two tablets at bedtime for constipation, Lasix 40 mg b.i.d., potassium 20 mEq, carbidopa/levodopa 25 mg/100 mg for Parkinson's. PAIN ASSESSMENT: 1. The patient does have some arthritic changes and problems with his hip and has had hip replacement as a result of osteoarthritis. 2. Height 5 feet 10 inches, weight 210 pounds, BMI is 30. 3. Vital signs: Blood pressure 122/79, pulse 93, respiratory rate 16, room air saturation 99%. 4. Pain intensity: 6/10. 5. Fall risk: The patient has fallen. He fell since we saw him last. He was hospitalized and has been treated. They are in the process of trying to get a mobile device for him at home. He has an alarm but was unable to press the alarm to call for help. [address] [address] PAIN MANAGEMENT CONSULTATION Name: PANCHO STILL [id number] Admission: 11/13/17 Attend Phys: Dodie Ovalles MD Discharge: Date of : 60 Report #: [id number] 6. Blood thinner: The patient is not on blood thinning agent. 7. History of hypertension: The patient is being treated for hypertension. 8. Opioid therapy greater than 6 weeks: The patient is receiving opioid medication and gets them from one source, Pain Clinic. 9. Risk assessment tool, low for opioids. 10. Functional assessment tool. 11. Recreational drug use: The patient denies use of recreational drugs. 12. Tobacco: The patient denies use of smoking. 13. Alcohol: The patient denies any frequent use of alcoholic beverages. PHYSICAL EXAMINATION: GENERAL: The patient is a well-developed black male. He is in a wheelchair. His sisters are with him. He appears to be in good spirits. He is alert and oriented x 3. He has a slow delivery of speech, consistent with Parkinson's disease. He has facial affect, which is consistent with Parkinson's disease. HEENT: Normocephalic, atraumatic. Extraocular eye muscles intact. Hearing is within normal limits. Sclerae are noninjected. NECK: Without adenopathy. Somewhat compromised range of motion given his Parkinson's disease. LUNGS: Clear to auscultation. HEART: Regular rate. S1, S2. ABDOMEN: Nontender. MUSCULOSKELETAL: The patient has a bandage of some sort on the right hand. This is the one that he had swelling secondary to falling on it and decrease in its blood supply with significant swelling and some return of nerve sensation. Right knee trauma about the size of a silver dollar, which is improving. Toe distal phalanges with evidence of skin breakdown from chronic pressure after lying for such a long time and unable to move. Movement is slow and consistent with Parkinson's disease. IMPRESSION: 1. Parkinson's disease with slow motion status post fall involving the right arm, toes, and knee. The patient is followed in the Wound Clinic, has compression stockings on. 2. Chronic lymphedema in the lower extremities. The patient continues to wear compression stockings. 3. History of venous insufficiency. 4. 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 5. Status post fall and recent hospitalization. 6. Left hip pain status post hip replacement. 7. Disability with gait and movement. The patient is to get a chair for movement from one level of the house to the next. RECOMMENDATIONS: We discussed treatment options with the patient and his sisters. Overall, things seemed to have worked out reasonably well. He is still quite happy and feels fortunate that he had less damage after his fall. [facility] [address] [place] [address] PAIN MANAGEMENT CONSULTATION Name: PANCHO STILL Minerva [facility] [id number] Admission: 11/13/17 Attend Phys: Dodie Ovalles MD Discharge: Date of : 60 Report #: [id number] He feels that his medications continue to be helpful. A script for his medications has been re-written. He will follow up in the future as needed. We would like to thank you for letting us participate in his care. We hope he continues to improve. By: [id number] Dodie Ovalles MD /nt
[2017-11-13 09:52] VITALS: BP 122/79
== END ==
LOC: PAIN 11-08 08:12
DX: G20 Parkinson's disease (principal); I89.0 Lymphedema, not elsewhere classified; M25.552 Pain in left hip; Z96.642 Presence of left artificial hip joint

== ENCOUNTER → 2017-11-13 | Outpatient (CLI) | payer OTHER | LOC: HYPER 06:58 | DX: L89.313 Pressure ulcer of right buttock, stage 3 (principal); L97.511 Non-pressure chronic ulcer of other part of right foot limited to breakdown of skin; S81.001A Unspecified open wound, right knee, initial encounter; I87.2 Venous insufficiency (chronic) (peripheral); I73.9 Peripheral vascular disease, unspecified; I89.0 Lymphedema, not elsewhere classified; Z96.649 Presence of unspecified artificial hip joint; X58.XXXA Exposure to other specified factors, initial encounter; Y93.89 Activity, other specified; Y92.89 Other specified places as the place of occurrence of the external cause; Y99.8 Other external cause status ==

== ENCOUNTER → 2017-12-11 | Outpatient (CLI) | payer OTHER ==
--- NOTE | ~2017-12-11 | HPC ---
[facility] [place] [address] PAIN MANAGEMENT CONSULTATION Name: TESSYPANCHO Room #: REG [facility] Emre#: [id number] Admission: 12/11/17 Attend Phys: Dodie Ovalles MD Discharge: Date of : 60 Report #: [id number] THIS REPORT FOR: //name// CC: Dodie Garrett MD DATE OF SERVICE: 12/11/2017 FOLLOWUP COMPLAINT: I have got a new hospital bed and it has been helping my legs. FOLLOWUP HISTORY: The patient is a 57-year-old gentleman who has been followed in the pain clinic. As you recall, he suffers from significant Parkinsonian symptomatology. He is in a wheelchair most of the time. He has now received a hospital bed at home. He is able to sleep with his legs, more elevated. Has noted a decrease in the swelling in the lower extremities. States that he was in the hospital and was given additional pain medications because of the worsening of his pain. He is going to follow up with his physician in regard to his right arm. As you rexall, he fell from his chair. He lie on his right arm for quite some time. There was significant amount of swelling. There is no infection at this juncture. He states that he is going to follow up with his physician for management of this problem. Both of his sisters were here and assisting with his care. ALLERGIES: No known drug allergies. MEDICATIONS: OxyIR 10 mg 1 p.o. b.i.d., oxycodone 5 mg 1 p.o. every 8 hours, Requip 0.25 mg t.i.d., vitamin B12 500 mg, vitamin D3 2000 units, Colace 100 mg constipation, Lasix 40 mg b.i.d., potassium 20 mEq, carbidopa/levodopa 25 mg/100 mg for Parkinsonian symptoms. PAIN ASSESSMENT: 1. The patient has arthritic changes as a result of pain in his hips and has had a hip replacement because of osteoarthritis. 2. Height 5 feet 10 inches, weight 203 pounds, BMI is 30. 3. Vital signs: Blood pressure 131/84, pulse 83, respiratory rate 16, room air saturation is 98%. 4. Pain intensity 09/24. 5. Fall risk. The patient has fallen in the last 3 months. The patient is trying to get a motorized wheelchair. 6. The patient is on blood thinner. The patient is not on a blood thinning agent. 7. History of hypertension. The patient is being treated for hypertension. 8. Opioid use. The patient has signed a contract and get his medications from [address] [address] PAIN MANAGEMENT CONSULTATION Name: PANCOH STILL Room #: REG TIANNA Andrea#: [id number] Admission: 12/11/17 Attend Phys: Dodie Ovalles MD Discharge: Date of : 60 Report #: [id number] 9. Risk assessment tool, low for opioid use. 10. Functional assessment tool. 11. Recreational drug use. The patient denies use of recreational drugs. 12. Tobacco: The patient denies use of tobacco. 13. Alcohol: The patient denies frequent use of alcoholic beverages. PHYSICAL EXAMINATION: GENERAL: The patient is a well-developed black male. He is in his wheelchair. He is accompanied by his sisters. He appears to be in good spirits. He is alert and oriented, talkative. Speech delivery is slow consistent with his Parkinson's disease. Has facial features consistent with Parkinsonian disease with lack of expression. HEENT: Normocephalic, atraumatic. Extraocular eye muscles intact. Hearing is within normal limits. Sclerae nonicteric. NECK: Without adenopathy somewhat compromised range of motion secondary to Parkinson's disease. LUNGS: Clear to auscultation. HEART: Regular rate. S1, S2. ABDOMEN: Nontender. MUSCULOSKELETAL: The patient has an improved right hand. There was significant swelling with a blister-like material present at the last visit. This has resolved. There is less swelling in his left and right lower extremity. IMPRESSION: 1. Parkinson's disease with slow motion status post fall involving his right arm, toes, and knees. The patient continues to be followed in the wound clinic. Wears compression stockings. 2. Chronic lymphedema of the lower extremities improved with a hospital bed and elevation of his legs. 3. History of History of venous insufficiency. 4. 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 5. Status post fall and recent hospitalization. 6. Status post left hip pain with history of hip replacement. 7. Disability with gait and movement. The patient states that he is going to get a motorized wheelchair. RECOMMENDATIONS: We discussed treatment options with the patient. His sisters were in the room. We explained that opioid medications given today's climate, needs to be given through 1 physician. If the patient gets medications from another physician, it is patient's responsibility to call us and let us know. He signed a contract with the [facility] regarding use of his opioid medications. Overall, he feels that things are going reasonably well. The medication is helpful and he would like to continue. A script for oxycodone 5/325 one p.o. q.i.d. 90 and OxyIR 10 mg 1 p.o. b.i.d. has been written, total of 60. The patient will call us if he has any problems with his medications. [facility] [address] [place] [address] PAIN MANAGEMENT CONSULTATION Name: TESSYPANCHO Room #: REG [facility].#: [id number] Admission: 12/11/17 Attend Phys: Dodie Ovalles MD Discharge: Date of : 60 Report #: [id number] We would like to thank you for letting us participate in his care. We hope he continues to improve. By: [id number] Dodie Ovalles MD /PEPPER
[2017-12-11 08:45] VITALS: BP 131/84
== END ==
LOC: HYPER 06:56 → PAIN 06:56
DX: L89.313 Pressure ulcer of right buttock, stage 3 (principal); L97.511 Non-pressure chronic ulcer of other part of right foot limited to breakdown of skin; S81.001D Unspecified open wound, right knee, subsequent encounter; I73.9 Peripheral vascular disease, unspecified; I87.2 Venous insufficiency (chronic) (peripheral); I89.0 Lymphedema, not elsewhere classified; G20 Parkinson's disease; X58.XXXD Exposure to other specified factors, subsequent encounter

== ENCOUNTER → 2018-03-28 | Outpatient (CLI) | payer OTHER ==
[~2018-03-28] VITALS: Ht 177.8 cm; Wt 96.6 kg
--- NOTE | ~2018-03-28 | HPC ---
[facility] [place] [address] PAIN MANAGEMENT CONSULTATION Name: PANCHO STILL Room #: REG [facility] Emre#: [id number] Admission: 03/28/18 Attend Phys: Dodie Ovalles MD Discharge: Date of : 60 Report #: [id number] THIS REPORT FOR: //name// CC: Dodie Garrett DATE OF SERVICE: 03/28/2018 FOLLOWUP COMPLAINT: "I have had my hand surgery." FOLLOWUP HISTORY: The patient is a 58-year-old black gentleman with a history of Parkinson's disease. As you recall, he fell a few weeks ago. Noticed that his right hand was trapped. He is unable to move it. Had some breakdown of his hand and has undergone surgery for repair of this problem. He feels his medications are helpful. He is taking the medication as directed. He has had no complications from their use. Rates his pain as a 6/10 at this juncture. Still note some significant amount of stiffness. The patient is a right-handed individual, so this is really significantly decrease his ability to get things done because of his right-handedness. ALLERGIES: No known drug allergies. MEDICATIONS: OxyIR 10 mg 1 p.o. b.i.d., oxycodone 5 mg 1 p.o. q.8 hours, Requip 0.25 mg t.i.d., vitamin B12 500 mg, vitamin D3 2000 units, Colace 100 mg 2 tablets at bedtime, Lasix 40 mg b.i.d., potassium 20 mEq, carbidopa/levodopa 25 mg/100 mg for Parkinson's disease. PAIN CLINIC ASSESSMENT/PQRS: 1. The patient does have some problems with his hip with osteoarthritis and has had hip replacement. 2. The patient has not been treated for rheumatoid arthritis. 3. Height 5 feet 10 inches, weight 213 pounds, BMI is 30.6. 4. Vital signs: Blood pressure 135/87, respiratory rate 20, pulse 88, temperature ____. 5. Pain intensity 11/24. 6. Fall risk. The patient has not fallen since we saw him last. 7. Blood thinner. The patient is not on a blood thinning medication. 8. Hypertension. The patient is being treated for hypertension. 9. Opioid therapy greater than 6 weeks. The patient receives his medications from one source, the Pain Clinic. 10. Risk assessment, low risk for opioid use. 11. Functional assessment tool 40/70. 12. Recreational drug use. The patient denies use of recreational drugs. 13. Tobacco: The patient denies use of tobacco. 14. Alcohol: The patient denies alcoholic use. [facility] [address] [place] [address] PAIN MANAGEMENT CONSULTATION Name: PANCHO STILL Room #: REG Endy Andrea#: [id number] Admission: 03/28/18 Attend Phys: Dodie Ovalles MD Discharge: Date of : 60 Report #: [id number] PHYSICAL EXAMINATION: GENERAL: The patient is a well-developed, well-nourished black male, appears his stated age. He is alert and oriented x 3. He is in his wheelchair. His two sisters are present. He is vocally engaging. HEENT: Normocephalic, atraumatic. Extraocular eye muscles intact. Sclera was without injection. NECK: Without adenopathy, decreased range of motion secondary to Parkinson's disease. LUNGS: Clear to auscultation. HEART: Regular rate. S1, S2. ABDOMEN: Nontender. Bowel sounds present. MUSCULOSKELETAL: The patient is in a wheelchair. Has his right arm bandaged. Has some evidence of irritation on the dorsum of his left hand as well. This is well healing. The patient has some swelling down in the lower extremities secondary to lymphedema. IMPRESSION: 1. 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 2. Chronic lymphedema in the lower extremity continues to work on compression dressings and to elevate lower extremities. 3. History of venous insufficiency. 4. 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 5. Left hip, status post hip replacement. 5. Gait and movement problem. The patient continues to ambulate out in society in a wheelchair and at home with some help. RECOMMENDATIONS: We discussed treatment options with the patient. At this juncture, we will continue with his current medication regimen. He feels that the OxyContin and oxycodone are helpful. They enable him to engage in activities that he would have much more problem without their use. States that he has taken the medication as prescribed. He would like to continue with the medications. His sister is concur that he appears to be taking his medication as prescribed and that these medications continue to be advantageous at this juncture. A script for his medications has been written. We would like to thank you for letting us participate in his care. We hope he continues to improve. <ELECTRONICALLY SIGNED> By: Dodie Ovalles MD 03/31/18 1125 0905 [address]40 [address] Omero Ovalles MD /nt
[2018-03-28 08:16] VITALS: BP 135/87
== END ==
LOC: PAIN 07:01
DX: G20 Parkinson's disease (principal); I87.2 Venous insufficiency (chronic) (peripheral); I89.0 Lymphedema, not elsewhere classified; R26.9 Unspecified abnormalities of gait and mobility; Z96.642 Presence of left artificial hip joint

== ENCOUNTER → 2018-04-30 | Outpatient (CLI) | payer OTHER ==
[2018-04-30 10:05] VITALS: BP 128/91
== END ==
LOC: PAIN 04-25 12:26
DX: M79.605 Pain in left leg (principal); M79.604 Pain in right leg; M79.641 Pain in right hand; M79.652 Pain in left thigh; M79.651 Pain in right thigh; Z79.891 Long term (current) use of opiate analgesic

== ENCOUNTER 2018-05-08 19:32 | Emergency (ER) | payer OTHER ==
[~2018-05-08] VITALS: Ht 177.8 cm; Wt 90.7 kg
[2018-05-08 23:07] VITALS: BP 113/74
== END 2018-05-08 23:08 | disposition home or self-care (01) ==
LOC: ER 19:32
DX: N48.1 Balanitis (principal); G20 Parkinson's disease; G89.29 Other chronic pain; K21.9 Gastro-esophageal reflux disease without esophagitis; I50.9 Heart failure, unspecified; Z88.5 Allergy status to narcotic agent

== ENCOUNTER 2018-05-21 11:51 | Emergency (ER) | payer OTHER ==
[~2018-05-21] VITALS: Ht 177.8 cm; Wt 93.0 kg
--- NOTE | ~2018-05-21 | EKG ---
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
[2018-05-21 12:22] LABS: URINE BLOOD 3+ (Negative); URINE CLARITY CLOUDY; URINE COLOR RED; URINE GLUCOSE-RANDOM* NEGATIVE (Negative); URINE KETONES NEGATIVE (Negative); URINE PROTEIN (DIPSTICK) 2+ (Negative)
[2018-05-21 12:24] LABS: ICTOTEST (BILI CONFIRMATORY) Negative (Negative); URINE BILIRUBIN NEGATIVE (Negative); URINE LEUKOCYTES-REFLEX 2+ (Negative); URINE NITRITE-REFLEX POSITIVE (Negative)
[2018-05-21 12:33] LABS: SQUAMOUS 0-3 Few /LPF (0-3); URINE RBC >20 Many /HPF (0-2)
[2018-05-21 12:34] LABS: CASTS None Seen /LPF (None Seen); CRYSTALS None Seen /LPF (None Seen)
[2018-05-21 14:18] LABS: ABSOLUTE NEUTROPHILS 3.4 thou/uL (1.4-8.2); BASOPHILS 1.2 % (0.0-2.0); EOSINOPHILS 4.3 % (0.0-3.0); HEMATOCRIT 40.9 % (42.0-52.0); HEMOGLOBIN 13.7 gm/dL (14.0-18.0); LYMPHOCYTES 28.5 % (24.0-44.0); MCH 29.1 pg (26.0-34.0); MCHC 33.4 g/dL (28.0-37.0); MCV 87.1 fL (80.0-100.0); MONOCYTES 10.4 % (1.0-8.0); PLATELET COUNT 290 thou/uL (150-400); POLYS 55.6 % (36.0-66.0); RDW 14.3 % (10.5-14.5); WBC 6.1 thou/uL (4.0-11.0)
[2018-05-21 14:29] LABS: ANION GAP 7 mmol/L (7-16); BUN 8 mg/dL (7-18); CALCIUM 9.2 mg/dL (8.5-10.1); CHLORIDE 104 mmol/L (98-107); CO2 28 mmol/L (21-32); CREATININE 0.8 mg/dL (0.7-1.3); GLUCOSE 84 mg/dL (74-106); POTASSIUM 3.9 mmol/L (3.5-5.1); SODIUM 139 mmol/L (136-145)
[2018-05-21 14:31] LABS: APTT 27.2 Seconds (24.5-32.8); PROTIME 10.2 Seconds (9.3-11.4)
[2018-05-21] MEDS ORDERED: AMOXICILLIN 50500 M1 PO (14:31)
[2018-05-21 14:38] LABS: MAGNESIUM 2.1 mg/dL (1.8-2.4); SGOT 12 U/L (15-37); SGPT 17 U/L (30-65); TOTAL BILIRUBIN 0.4 mg/dL (<0.1-1.0); TOTAL PROTEIN 7.5 g/dL (6.4-8.2); TROPONIN-I <0.06 ng/mL (<0.06)
[2018-05-21 17:27] VITALS: BP 97/61
== END 2018-05-21 17:28 | disposition home or self-care (01) ==
LOC: ER 11:51
PROVIDERS: Emergency Medicine
DX: N39.0 Urinary tract infection, site not specified (principal); R31.9 Hematuria, unspecified; N48.1 Balanitis; G20 Parkinson's disease; R53.1 Weakness; G89.29 Other chronic pain; K21.9 Gastro-esophageal reflux disease without esophagitis; I50.9 Heart failure, unspecified; Z88.5 Allergy status to narcotic agent; Z96.642 Presence of left artificial hip joint

== ENCOUNTER → 2018-06-27 | Outpatient (CLI) | payer OTHER ==
[~2018-06-27] MED LIST changes: +AMOXICILLIN 50500 M1 PO
[2018-06-27 08:37] VITALS: BP 116/84
--- NOTE | 2018-06-27 08:47 | NUR ---
Pain Clinic Assessment: 1. History of Osteoarthritis: NO History of Rheumatoid Arthritis: NO 2. Height: ft. in. cm. Weight: lb. oz. kg. Patient's BMI: 3. Vital Signs: BP: 116/84 Pulse: 85 Resp: 16 Temp: 02 Sat: 97 ECG Mon: 4. Pain Intensity: 5 5. Fall Risk: Dizziness: N Needs help standing or walking: Y Fallen in the last 3 months: N Fall risk comments: 6. Patient on Blood Thinner: None 7. History of Hypertension: Y 8. Opioid Therapy greater than 6 weeks: Y Opiate Contract Signed: 12/08/15 9. Risk Assessment Tool Provided: 0 LOW RISK 10. Functional Assessment Tool: 11. Recreational Drug Use: Never Drug Type: Tobacco Use: Never Smoker Tobacco Type: Amount or Packs/day: How Many Years: Alcohol Use: No Frequency: Quant:
--- NOTE | 2018-06-30 07:10 | HPC ---
[facility] [place] [address] [address] PAIN MANAGEMENT CONSULTATION Name: PACNHO STILL Room #: REG [facility] Emre#: [id number] Admission: 06/27/18 Attend Phys: Mena Barger Discharge: Date of : 60 Report #: [id number] THIS REPORT FOR: //name// CC: Mena Barger Karolina Pegueroz DATE OF SERVICE: 06/27/2018 CHIEF COMPLAINT: This patient has chronic pain associated with Parkinson's disease. HISTORY OF PRESENT ILLNESS: This is a 58-year-old gentleman who has been followed in the pain clinic for his chronic pain related to his Parkinson's disease. He tells me with his sister who is a caregiver today that he had been in the Emergency Room a couple times since last visit. He had penile swelling and then he had urinary tract infection. Those have both since cleared, but today he does present with a very red, watery left eye looking like conjunctivitis. He is going to see his primary care after our visit today. He tells me it just started yesterday and has gotten significantly worse when he got up this morning. The patient tells me that his pain score is 5/10 today, worse in his legs, thighs and hands, worse with movements or sitting for a long time. His medication is very helpful. He denies any constipation since he does take some medications to help with that occasionally and does not have any daytime sleepiness related to his narcotic use he feels. He feels that he is on a good regimen with his medications and would just like a refill today. ALLERGIES: MORPHINE. LIST OF MEDICATIONS: OxyIR 10 mg twice a day, oxycodone 5 mg every 8 hours as needed, amoxicillin 500 mg 3 times a day, Protonix 40 mg daily, tamsulosin 0.4 mg daily, Requip 0.25 three times a day, vitamin B12 daily, vitamin D3 daily, Colace daily, Lasix 40 mg twice a day, potassium 20 mEq daily, carbidopa/levodopa 25/100 three times a day. PQRS: 1. He denies rheumatoid arthritis and does have some osteoarthritis in his hips and has had replacement. 2. Height is 5 feet 10 inches, weight is 205 per the patient. 3. Vital signs: Blood pressure 116/84, pulse is 85, respirations 16, oxygen sat 97%. 4. Pain score is 5/10. 5. Dizziness, he denies dizziness. He is in a wheelchair today, has not fallen in the last 3 months. 6. The patient is not on any blood thinners, does take medicine for hypertension. 7. His opiate therapy is greater than 6 weeks, [place] [address] PAIN MANAGEMENT CONSULTATION Name: PANCHO STILL Room #: REG TIANNA Andrea#: [id number] Admission: 06/27/18 Attend Phys: Mena Barger Discharge: Date of : 60 Report #: [id number] on the chart. 8. His risk assessment tool is low. His functional assessment is 40/70. 9. He denies recreational drug use. He is not a smoker and does not drink alcohol. We did check the prescription monitoring system. He fills downstairs in the medical pharmacy, filling appropriately with his medication. He tells me that he does safeguard his medications. His sisters help him with his medications. PHYSICAL EXAMINATION: GENERAL: This patient is well-developed, well-nourished black male. He appears his stated age. Alert and orientated with good sense of humor. He is in a wheelchair today. One of his sisters is present. HEENT: Normocephalic, atraumatic. Left eye has very reddened conjunctivae and has drainage watering, right eye slightly reddened. NECK: Without adenopathy. Decreased range of motion secondary to his Parkinson's disease. MUSCULOSKELETAL: The patient is in a wheelchair. His right arm has limited movement obvious loss of muscle bulk in the affected arm, continues to have lower extremity edema secondary to lymphedema history. We reviewed the fact that opiate medications are being used to provide analgesia adequate to support activities of daily living, not attempting to achieve a specific pain score on the 0-10 Visual Analog Scale. The current opiate medications are providing sufficient analgesia to allow the patient to participate in activities of daily living. The patient is not exhibiting any aberrant behavior suggestive of drug diversion. The patient is not having any adverse reactions to medications. The patient is not suffering from daytime somnolence or mental acuity changes. The patient is managing opiate-induced constipation with appropriate lrth-vmy-[id number] agents and dietary considerations. The patient was counseled on concern for caution with operating a motor vehicle while using opiate medications. A physical exam was performed and the patient's functional status was evaluated. All patients with back pain were advised against the bed rest greater than 4 days and were advised to return to normal activities. Pain score assessment was noted and the treatment plan was reviewed with the patient. All current medications, both prescribed and OTC were reviewed and reconciled on the electronic medical record. Tobacco screening was accomplished and smoking cessation was advised when indicated. BMI was noted and diet/exercise modification was recommended for all patients following outside normal parameters. I reviewed with the patient today their responsibilities to safeguard prescription medications, reviewed their responsibility to utilize medications only as prescribed by the physician. They are to seek and receive pain [facility] [address] [place] [address] PAIN MANAGEMENT CONSULTATION Name: TESSYPANCHO [id number] Admission: 06/27/18 Attend Phys: Mena Barger Discharge: Date of : 60 Report #: [id number] medications only from 1 physician group ([facility]). They are to use 1 pharmacy and keep the clinic informed if they change pharmacies. Their responsibilities include making followup visits in a timely fashion and to avoid abrupt discontinuation of medication usage. Their responsibilities further include bringing their medications (bottles from the pharmacy with residual pills) to the visit for possible confirmation of pill counts and the patient understands it is their responsibility to submit to random drug screens to ensure both that the medications prescribed are present, and that no other controlled substances are present. All prescriptions provided today were generated electronically. ASSESSMENT: 1. Parkinson's disease. 2. Chronic lymphedema in his lower extremities. 3. History of venous insufficiency. 4. 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 5. Left hip replacement, status post osteoarthritic changes. 6. Gait and movement problems secondary to Parkinson's disease. 7. Possible pink eye in his left eye. PLAN: We discussed treatment options today. The patient tells me that he is able to function well with his current medication regimen. He feels that his pain is under good control. Scripts given for oxycodone IR 10 mg twice a day, #60 for today and 4-week, oxycodone 5 mg every 8 hours #50 for today and 4-week release. The patient will follow up in 2 months. Care given today in collaboration with Dr. Anatoly Ovalles. <ELECTRONICALLY SIGNED> By: Mena Barger 06/30/18 0710 0920 1113 Mena Barger /nt
== END ==
LOC: PAIN 06:47
DX: G20 Parkinson's disease (principal); I89.0 Lymphedema, not elsewhere classified; R26.9 Unspecified abnormalities of gait and mobility; Z96.642 Presence of left artificial hip joint; Z86.79 Personal history of other diseases of the circulatory system

== ENCOUNTER 2018-07-08 20:04 | Emergency (ER) | payer OTHER ==
[~2018-07-08] VITALS: Ht 177.8 cm; Wt 111.1 kg
[2018-07-08] MEDS ORDERED: AMOXICILLIN 50500 M1 PO (23:28)
[2018-07-09 00:41] VITALS: BP 99/65
== END 2018-07-09 00:42 | disposition home or self-care (01) ==
LOC: ER 20:04
DX: R51 Headache (principal); G20 Parkinson's disease; G89.29 Other chronic pain; K21.9 Gastro-esophageal reflux disease without esophagitis; I50.9 Heart failure, unspecified; I73.9 Peripheral vascular disease, unspecified; Z88.5 Allergy status to narcotic agent

== ENCOUNTER 2018-08-18 18:05 | Inpatient (IN) | payer OTHER ==
[~2018-08-18] VITALS: Ht 177.8 cm; Wt 109.0 kg
[2018-08-18 18:08] VITALS: BP 151/95
[2018-08-18 18:26] LABS: URINE BILIRUBIN NEGATIVE (Negative); URINE BLOOD 3+ (Negative); URINE CLARITY CLOUDY; URINE COLOR YELLOW; URINE GLUCOSE-RANDOM* NEGATIVE (Negative); URINE KETONES NEGATIVE (Negative); URINE PROTEIN (DIPSTICK) 1+ (Negative); URINE UROBILINOGEN 0.2 E.U./dl (0.2-1.0)
[2018-08-18 18:27] LABS: URINE LEUKOCYTES-REFLEX 3+ (Negative); URINE NITRITE-REFLEX POSITIVE (Negative)
[2018-08-18 18:36] LABS: AMORPHOUS URATES Many /LPF (None Seen); HYALINE CASTS 0-3 Few /LPF (None Seen); MUCUS >6 Heavy strn/LPF (None Seen); SQUAMOUS 4-10 Moderate /LPF (0-3); URINE RBC >20 Many /HPF (0-2); URINE WBC-REFLEX >25 Many /HPF (0-5); WBC CLUMPS Packed (None Seen)
[2018-08-18 18:56] LABS: ABSOLUTE NEUTROPHILS 3.7 thou/uL (1.4-8.2); BASOPHILS 0.7 % (0.0-2.0); HEMATOCRIT 38.3 % (42.0-52.0); HEMOGLOBIN 12.6 gm/dL (14.0-18.0); LYMPHOCYTES 22.1 % (24.0-44.0); MCH 28.7 pg (26.0-34.0); MCHC 32.8 g/dL (28.0-37.0); MCV 87.6 fL (80.0-100.0); MONOCYTES 11.1 % (1.0-8.0); PLATELET COUNT 301 thou/uL (150-400); POLYS 60.1 % (36.0-66.0); RBC 4.38 mil/uL (4.50-6.00); WBC 6.1 thou/uL (4.0-11.0)
[2018-08-18 19:05] LABS: ANION GAP 8 mmol/L (7-16); BUN 6 mg/dL (7-18); CALCIUM 9.1 mg/dL (8.5-10.1); CHLORIDE 105 mmol/L (98-107); CO2 30 mmol/L (21-32); CREATININE 0.7 mg/dL (0.7-1.3); GLUCOSE 76 mg/dL (74-106); POTASSIUM 3.5 mmol/L (3.5-5.1); SODIUM 143 mmol/L (136-145)
[2018-08-18 19:11] LABS: DIRECT BILIRUBIN < 0.1 mg/dL (<0.1-0.3); SGOT 14 U/L (15-37); SGPT 13 U/L (30-65); TOTAL BILIRUBIN 0.3 mg/dL (<0.1-1.0); TOTAL PROTEIN 7.5 g/dL (6.4-8.2)
--- NOTE | 2018-08-18 19:30 | NUR ---
PT REQUESTED SOMETHING FOR PAIN. NOTIFIED PROVIDER.
[2018-08-18 22:15] VITALS: BP 123/84
[2018-08-18 23:15] VITALS: BP 114/67
[2018-08-18 23:35] VITALS: BP 116/75
[2018-08-19] MEDS ORDERED: VITAMINC500 PO (00:19)
[2018-08-19] MEDS ORDERED: OXYCODONE HCL10 MG PO (00:41)
[2018-08-19] MEDS ORDERED: OXYCODONE HCL 55 MG PO (00:45)
[2018-08-19 03:50] VITALS: BP 132/81
[2018-08-19 05:43] LABS: CALCIUM 8.7 mg/dL (8.5-10.1); CREATININE 0.8 mg/dL (0.7-1.3); POTASSIUM 3.9 mmol/L (3.5-5.1)
[2018-08-19 07:45] VITALS: BP 115/80
--- NOTE | 2018-08-19 10:48 | NUR ---
Consulted, no reason given. Pt on 2 gram sodium diet. Wt documented 220-240 lbs, UBW 230. Reports pretty good appetite, intake 75-100% at breakfast. No recent wt changes. Considered low risk at this time.
--- NOTE | 2018-08-19 14:47 | NUR ---
PT ADMITTED RELATED TO UTI, FAILED OP THERAPY. CM REVIEWED CHART AND SPOKE WITH CARE TEAM. PT IS FAMILIAR TO CM FROM PREVIOUS ADMISSION. CM MET WITH PT AND HIS MOTHER AT BEDSIDE THIS DAY. PT IS A&O X4. CM ROLE INTRODUCED. PT INDICATED HE LIVES IN THE BASEMENT APARTMENT APARTMENT OF HIS MOTHER'S HOUSE WITH 4 STEPS DOWN. PT'S SISTER IS HIS PAID CAREGIVER THROUGH [facility]. PT HAS FWW, WHEELCHAIR, SHOWER CHAIR, FULL ELECTRIC HOSPITAL BED. 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 [facility] HAD CALLED AND INDICATED THAT THEY WOULD NOT BE ABLE TO ACCEPT PT BACK FOR SERVICES UPON DISCHARGE DUE TO NONCOMPLIANCE. PT INDICATED HE PLANS TO RETURN HOME ONCE MEDICALLY STABLE. CM TO FOLLOW INDICATED WITH DC PLANNING.
[2018-08-19 16:23] VITALS: BP 133/86
[2018-08-19 21:10] VITALS: BP 124/75
--- NOTE | 2018-08-20 04:18 | NUR ---
PT. AOX4; REQUESTED 10 MG PRN PAIN MEDICATION EARLY ON THE NIGHT WITH HS MEDICATION; REFUSED THROUGH THE NIGHT TO BE TURNED; ST. "THIS IS HOW I AM AT HOME"; EDUCATED ABOUT THE NEED TO TURN FROM SIDE TO SIDE; REFUSED; ABLE TO REST DURING THE NIGHT WITH EYES CLOSE; UPSET EARLY ON THE MORNING BECAUSE WAS WOKE UP FOR VS; EXPLAINED THE NEED OF VS; REFUSED TO BE TURNED; REQUESTED PRN PAIN MEDICATION AND A FACIAL WARM TOWEL; MEDICATION AND TOWEL PROVIDED; ASSESSMENT CHARGED; FOLLOWING POC; WILL PASS IN REPORT.
[2018-08-20 04:45] VITALS: BP 129/97
--- NOTE | 2018-08-20 11:45 | NUR ---
CONSULTED TO PLACE A PICC FOR THIS PATIENT. NOTIFIED BY THE PATIENTS NURSE THAT THE PATIENT IS REFUSING PICC PLACEMENT. SPOKE TO THE PATIENT IN DETAIL ABOUT PICC PLACEMENT AND ANSWERED ALL QUESTIONS. HE CONTINUES TO REFUSE LINE PLACEMENT AT THIS TIME AND IS ASKING TO SPEAK TO HIS DOCTOR AND SISTERS BEFORE CONSENTING TO PICC PLACEMENT. WE WILL RETURN TO PLACE LINE IF THE PATIENT CHANGES HIS MIND AND CONSENTS TO LINE
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
--- NOTE | 2018-08-20 16:43 | NUR ---
FAXED REFERRAL TO [facility] FOR IV ABX SPOKE WITH JUSTO FROM ADM. AND HE WILL REVIEW REFERRAL AND F/U WITH ME IN THE AM. DCP TO FOLLOW.
--- NOTE | 2018-08-20 16:44 | NUR ---
PT ASSESSED AT START OF SHIFT. PT AGREED TO TURN ON SIDE FOR ME TO CHECK HIS SKIN. WHILE ON HIS SIDE I PROPPED HIM W/ PILLOWS. PT WAS NOT HAPPY AND ONLY STAYED OVER 30 MIN. PT REFUSED TO TURN THE REST OF THE SHIFT EVEN W/ EXPLANATION OF IMPORTANCE FOR PREVENTION OF BED SORES. NOTIFIED WOUND CARE NURSE AND LOW AIR LOSS PUMP ORDERED FOR BED. WILL CONTINUE TO SAMPLE HAND PT TO TURN. ORDER FOR PT TO HAVE PICC PLACEMENT BY DR. ATKINS AND PT REFUSING. DR. ATKINS TALKED W/ HIM AND STATED PT AGREED TO HAVE PICC. IV NURSE TALKED W/ PT FOR CONSENT AND HE IS REFUSING.
--- NOTE | 2018-08-20 17:22 | NUR ---
REFERRAL SENT TO [facility] FOR THEM TO CHECK BENEFITS. COST WOULD BE $1.25 FOR THE DRUG AND $30 PER DAY FOR SUPPLIES FOR TOTAL OF $211.25 WEEKLY.
[2018-08-20 17:25] VITALS: BP 140/72
[2018-08-20 20:24] VITALS: BP 146/99
[2018-08-21 05:06] VITALS: BP 142/99
--- NOTE | 2018-08-21 06:03 | NUR ---
TURNED Q2HRS. INITIALLY REFUSED REPOSITIONING BUT DID COOPERATE AFTER DISCUSSION OF BENEFITS OF PRESSURE RELIEF. REQUIRED BOTH PRN AND SCHEDULED OXYCODONE FOR CHRONIC GENERALIZED PAIN. PATIENT AGREEABLE TO HAVING PICC LINE INSERTED Saturday.
[2018-08-21 07:50] VITALS: BP 120/79
[2018-08-21] MEDS ORDERED: MEROPENEM-500 MG/50 IVPB (08:49)
--- NOTE | 2018-08-21 10:09 | NUR ---
ASSESMENT COMPLETED. VSS. A/O. C/O PAIN MANAGED BY MEDS ORDERED- SEE MAR. NO NOTED SOA. POOR APPETITE. DENIES NV. PLANS FOR PICC PLACEMENT TODAY. ANTICIPATE DC TO FACILITY. PT COMPLIANT WITH CARES TODAY. REPOSITIONED ORDERED. WILL CONT. TO MONITOR.
--- NOTE | 2018-08-21 12:53 | NUR ---
S/W PT, PT'S MOM AND SISTER LOLA IN ROOM AND THEY ALL WISH FOR PT TO GO TO [facility]. CALLED AND LEFT MESSAGE FOR JOSE IN ADMISSIONS AND FAXED FACE SHEET TO THEM. IF [facility] IS NOT ABLE TO ACCEPT PT TEHN THEY ARE INTERESTED IN [place]. THEY DO NOT THINK PT CAN COME HOME WHILE HE IS RECEIVING THE IV ABX. THEY WANT HIM MONITORED MORE CLOSELY WHILE HE HAS THE PICC LINE AND WOULD LIKE FOR HIM TO BE STRONGER BEFORTE RETURNING BACK HOME WELL.
--- NOTE | 2018-08-21 13:10 | NUR ---
CONSULTED TO PLACE A PICC FOR PATIENT DISCHARGING WITH HOME IV ANTIBIOTICS. PATIENT IS NOW CONSENTING TO THE LINE PLACEMENT. PROCEDURE WELL BENIFITS AND RISK OF LINE PLACEMENT DISCUSSED AND HE VERBALIZED UNDERSTANDING. THE RIGHT UPPER ARM BASILIC WAS WIDLEY PATENT. A #4F SINGLE LUMEN POER PICC WAS PLACED PER HOSPITAL POLICY AFTER A BEDSIDE TIMEOUT WAS COMPLETE. LINE WAS TRIMMED AND ADVANCED WITHOUT DIFFICULTY. A STAT CHEST XRAY SHOWING LINE DEEP, LINE WITHDREW 5CM AND A SECOND XRAY ORDERED TO CONFIRM PLACEMENT
--- NOTE | 2018-08-21 16:06 | NUR ---
[facility] ABLE TO ACCEPT PT TODAY. JOSE TO ARRANGE STRETCHER VAN AROUND 1830 TODAY. PT TO EAT DINNER HERE. MOM IN ROOM AND SISTERS ARE COMING AROUND 1700 TODAY.
--- NOTE | 2018-08-21 16:35 | NUR ---
PT. DISCHARGING TODAY TO [facility] FAXED DC ORDERS/SUMMARY TO FACILITY LEFT MS WITH NATANAEL WARREN. SHE WILL NOTIFY OF TIME OF TRANSPORT. CHART COPY PER US.
--- NOTE | 2018-08-21 19:10 | NUR ---
REPORT CALLED IN TO FACILITY. PT DC'D IN STABEL CONDITION.
== END 2018-08-21 19:09 | DRG 689 ==
LOC: ER 18:05 → EROBS 20:58 → 4E 20:58
PROVIDERS: Nurse Practitioner; Nurse Practitioner Family; ADMIT Hospitalist
PROC: 02H633Z Insertion of Infusion Device into Right Atrium, Percutaneous Approach (ICD-10-PCS; principal; 2018-08-21)
DX: N39.0 Urinary tract infection, site not specified (principal); E43 Unspecified severe protein-calorie malnutrition; Z96.642 Presence of left artificial hip joint; I73.9 Peripheral vascular disease, unspecified; G20 Parkinson's disease; K21.9 Gastro-esophageal reflux disease without esophagitis; I50.9 Heart failure, unspecified; G89.4 Chronic pain syndrome; Z16.24 Resistance to multiple antibiotics; E66.01 Morbid (severe) obesity due to excess calories; B96.5 Pseudomonas (aeruginosa) (mallei) (pseudomallei) as the cause of diseases classified elsewhere; Z46.6 Encounter for fitting and adjustment of urinary device; Z68.34 Body mass index [BMI] 34.0-34.9, adult; Z95.820 Peripheral vascular angioplasty status with implants and grafts; Z88.6 Allergy status to analgesic agent; Z79.899 Other long term (current) drug therapy
CPT/HCPCS: 10783; 27000

== ENCOUNTER 2018-09-15 14:45 | Emergency (ER) | payer OTHER ==
[~2018-09-15] VITALS: Ht 177.8 cm; Wt 104.3 kg
[~2018-09-15 14:45] MED LIST changes: +MEROPENEM-500 MG/50 IVPB; +VITAMINC500 PO
[2018-09-15 15:32] LABS: HEMATOCRIT 32.2 % (42.0-52.0); HEMOGLOBIN 10.6 gm/dL (14.0-18.0); MCH 28.1 pg (26.0-34.0); MCV 85.1 fL (80.0-100.0); PLATELET COUNT 669 thou/uL (150-400); RBC 3.78 mil/uL (4.50-6.00); RDW 14.9 % (10.5-14.5); WBC 6.2 thou/uL (4.0-11.0)
[2018-09-15 15:40] LABS: CALCIUM 9.1 mg/dL (8.5-10.1); CREATININE 0.7 mg/dL (0.7-1.3); POTASSIUM 3.2 mmol/L (3.5-5.1)
[2018-09-15 15:45] LABS: ALBUMIN 2.5 g/dL (3.4-5.0); DIRECT BILIRUBIN 0.1 mg/dL (<0.1-0.3); TOTAL BILIRUBIN 0.3 mg/dL (<0.1-1.0)
[2018-09-15 15:55] LABS: ABSOLUTE NEUTROPHILS 4.1 thou/uL (1.4-8.2)
[2018-09-15 17:18] LABS: URINE BILIRUBIN NEGATIVE (Negative); URINE BLOOD 1+ (Negative); URINE CLARITY SL CLOUDY; URINE COLOR YELLOW; URINE GLUCOSE-RANDOM* NEGATIVE (Negative); URINE KETONES NEGATIVE (Negative); URINE LEUKOCYTES-REFLEX 3+ (Negative); URINE NITRITE-REFLEX POSITIVE (Negative); URINE PROTEIN (DIPSTICK) 1+ (Negative); URINE UROBILINOGEN 0.2 E.U./dl (0.2-1.0)
[2018-09-15 17:26] LABS: MUCUS >6 Heavy strn/LPF (None Seen); SQUAMOUS 0-3 Few /LPF (0-3)
[2018-09-15 17:27] LABS: BACTERIA-REFLEX >30 Many /HPF (None Seen); CALCIUM OXALATE 0-3 Few /LPF (None Seen); HYALINE CASTS 0-3 Few /LPF (None Seen); URINE WBC-REFLEX >25 Many /HPF (0-5)
[2018-09-15 19:50] VITALS: BP 121/77
== END 2018-09-15 19:50 | disposition home or self-care (01) ==
LOC: ER 14:45
PROVIDERS: Emergency Medicine
DX: R19.7 Diarrhea, unspecified (principal); G20 Parkinson's disease; G89.29 Other chronic pain; K21.9 Gastro-esophageal reflux disease without esophagitis; I50.9 Heart failure, unspecified; Z88.5 Allergy status to narcotic agent

== ENCOUNTER 2018-09-21 02:52 | Emergency (ER) | payer OTHER ==
[~2018-09-21] VITALS: Ht 177.8 cm; Wt 104.3 kg
[2018-09-21 03:44] LABS: ABSOLUTE NEUTROPHILS 4.8 thou/uL (1.4-8.2); BASOPHILS 1.8 % (0.0-2.0); HEMATOCRIT 35.5 % (42.0-52.0); HEMOGLOBIN 11.7 gm/dL (14.0-18.0); MCH 28.3 pg (26.0-34.0); MCHC 33.1 g/dL (28.0-37.0); MCV 85.6 fL (80.0-100.0); MONOCYTES 8.3 % (1.0-8.0); PLATELET COUNT 548 thou/uL (150-400); POLYS 61.9 % (36.0-66.0); RBC 4.14 mil/uL (4.50-6.00); RDW 15.2 % (10.5-14.5); WBC 7.7 thou/uL (4.0-11.0)
[2018-09-21 03:50] LABS: CALCIUM 9.4 mg/dL (8.5-10.1); CREATININE 0.8 mg/dL (0.7-1.3); POTASSIUM 3.8 mmol/L (3.5-5.1)
[2018-09-21] MEDS ORDERED: ZANAFLEX2 M1 PO (04:09)
[2018-09-21 05:13] VITALS: BP 102/62
== END 2018-09-21 05:14 | disposition home or self-care (01) ==
LOC: ER 02:52
PROVIDERS: Student in an Organized Health Care Education/Training Program
DX: M62.838 Other muscle spasm (principal); G20 Parkinson's disease; G89.29 Other chronic pain; I50.9 Heart failure, unspecified; K21.9 Gastro-esophageal reflux disease without esophagitis; Z88.5 Allergy status to narcotic agent

== ENCOUNTER → 2018-10-01 | Outpatient (CLI) | payer OTHER ==
[~2018-10-01] MED LIST changes: +ZANAFLEX2 M1 PO; +ZANAFLEX4 MG PO; +ZINC50 M1 PO
[2018-10-01 10:07] VITALS: BP 102/62
--- NOTE | 2018-10-01 10:24 | NUR ---
Pain Clinic Assessment: 1. History of Osteoarthritis: NO History of Rheumatoid Arthritis: NO 2. Height: ft. in. cm. Weight: 283.0 lb. oz. 128.368 kg. Patient's BMI: 3. Vital Signs: BP: 102/62 Pulse: 96 Resp: 16 Temp: 02 Sat: 100 ECG Mon: 4. Pain Intensity: 5 5. Fall Risk: Dizziness: N Needs help standing or walking: Y Fallen in the last 3 months: N Fall risk comments: 6. Patient on Blood Thinner: None 7. History of Hypertension: Y 8. Opioid Therapy greater than 6 weeks: Y Opiate Contract Signed: 12/08/15 9. Risk Assessment Tool Provided: 0 LOW RISK 10. Functional Assessment Tool: 11. Recreational Drug Use: Never Drug Type: Tobacco Use: Never Smoker Tobacco Type: Amount or Packs/day: How Many Years: Alcohol Use: No Frequency: Quant:
--- NOTE | 2018-10-02 16:12 | HPC ---
[facility] [place] [address] PAIN MANAGEMENT CONSULTATION Name: TESSYPANCHO Room #: [facility] Emre#: [id number] Admission: 10/01/18 ������������������ Attend Phys: Mena Barger Discharge: ������������������ Date of : 60 Report #: [id number] THIS REPORT FOR: //name// CC: Mena Garrett DATE OF SERVICE: 10/01/2018 CHIEF COMPLAINT: Chronic pain associated with Parkinson's disease. HISTORY OF PRESENT ILLNESS: The patient returns to the pain clinic today for refill of his medications. We last saw him in June for medications. Since that time, he has been in the hospital for a total of about 8 weeks. He was in [place] and at [place] and at [facility]. During this time, he was hospitalized for UTI and he acquired C. diff, pneumonia and Pseudomonas as well as MRSA. The patient tells me he is finally feeling better that he was very sick for several weeks. He tells me he is not having any problems with constipation since he has been suffering from C. diff and has been on lots of antibiotics recently. He tells me that his pain score is a 5 today. He does not have any daytime sleepiness, he takes Zanaflex that they had given him for muscle spasms, so he is trying to take that only at nighttime. He did acquire a prescription from the rehab facility when he was discharged since he was running low on his medicine and needed to make an appointment here. Otherwise, he has not had any prescriptions filled since July. He is here with family members today and would like refill of his medication. ALLERGIES: MORPHINE. CURRENT LIST OF MEDICATION: Zinc, tizanidine, meropenem, OxyIR 5 mg b.i.d., OxyIR 10 mg p.r.n., ascorbic acid, Protonix, tamsulosin, Requip, vitamin B12, vitamin D3, Colace, Lasix, potassium and carbidopa/levodopa. PQRS: 1. He denies any rheumatoid arthritis. He does have some osteoarthritis in his hips. 2. Height is 5 feet 10 inches, weight is 283 pounds per the patient that seems high compared to his last visit. 3. Vital signs: Blood pressure 102/62, pulse is 98, respirations 16, oxygen sat is 100, pain score is 5/10. 4. Fall risk: Denies dizziness. Does need help walking and standing. He is in a wheelchair. He has not fallen in the last 3 months. 5. The patient is not on a blood thinner. He does take medicines for hypertension. 6. Opioid therapy is greater than 6 weeks; therefore, an opioid signed contract is on the chart. His risk assessment tool is low. His functional assessment is [facility] [address] [place] [address] PAIN MANAGEMENT CONSULTATION Name: PANCHO STILL Minerva Room #: REG [facility] Andrea#: [id number] Admission: 10/01/18 ������������������ Attend Phys: Mena Barger Discharge: ������������������ Date of : 60 Report #: [id number] 40/70. 7. Recreational drug use: He denies. He is not a smoker and did not drink alcohol. We did check the prescription monitoring system. As I stated above, he did fill one prescription from the rehab facility. Otherwise, he is filling only from Dr. Ovalles. Tells me he safeguards his medications. His sister does help him fill his medicine boxes. PHYSICAL EXAMINATION: GENERAL: This is a well-developed, well-nourished, black gentleman who appears his stated age. He is alert and orientated, in wheelchair today and two of his family members are present. HEENT: Normocephalic, atraumatic. Extraocular eye muscles are intact. NECK: Without adenopathy. He has decreased range of motion from his Parkinson disease in his arms and neck. MUSCULOSKELETAL: Again, the patient is in a wheelchair. His right arm has limited movement with loss of muscle tone and bulk. EXTREMITIES: His lower extremities has some edema at 1+ due to his lymphedema history. We reviewed the fact that opiate medications are being used to provide analgesia adequate to support activities of daily living, not attempting to achieve a specific pain score on the 0-10 Visual Analog Scale. The current opiate medications are providing sufficient analgesia to allow the patient to participate in activities of daily living. The patient is not exhibiting any aberrant behavior suggestive of drug diversion. The patient is not having any adverse reactions to medications. The patient is not suffering from daytime somnolence or mental acuity changes. The patient is managing opiate-induced constipation with appropriate qmhe-vdb-vfxmtun agents and dietary considerations. The patient was counseled on concern for caution with operating a motor vehicle while using opiate medications. A physical exam was performed and the patient's functional status was evaluated. All patients with back pain were advised against the bed rest greater than 4 days and were advised to return to normal activities. Pain score assessment was noted and the treatment plan was reviewed with the patient. All current medications, both prescribed and OTC were reviewed and reconciled on the electronic medical record. Tobacco screening was accomplished and smoking cessation was advised when indicated. BMI was noted and diet/exercise modification was recommended for all patients following outside normal parameters. I reviewed with the patient today their responsibilities to safeguard prescription medications, reviewed their responsibility to utilize medications only as prescribed by the physician. They are to seek and receive pain medications only from 1 physician group ([facility]). They are to use 1 pharmacy and keep the clinic informed if they change pharmacies. Their [address] [address] PAIN MANAGEMENT CONSULTATION Name: PANCHO STILL Minerva Room #: [facility] Francisco.#: [id number] Admission: 10/01/18 ������������������ Attend Phys: Mena Barger Discharge: ������������������ Date of : 60 Report #: [id number] responsibilities include making followup visits in a timely fashion and to avoid abrupt discontinuation of medication usage. Their responsibilities further include bringing their medications (bottles from the pharmacy with residual pills) to the visit for possible confirmation of pill counts and the patient understands it is their responsibility to submit to random drug screens to ensure both that the medications prescribed are present, and that no other controlled substances are present. All prescriptions provided today were generated electronically. PLAN: 1. We discussed treatment options with the patient today. The patient would like a refill of his current medications. When he was in the hospital and rehab facility, they did provide him with this medication, but he is needing refills today. Scripts given for oxycodone 5 mg q.8h., #50 for today release and 4-week release; OxyIR 10 mg b.i.d., #60 with releases for today and 4-week release. 2. The patient will return in 2 months' time. 3. The patient is seen with Dr. Ovalles who also collaborated care. ��������������������������������������������� <ELECTRONICALLY SIGNED> ���������������������������������������� By: Mena Barger ��������������������������������������������� 10/02/18 [id number] Mena Barger /nt
== END ==
LOC: PAIN 08-27 12:41
DX: G89.29 Other chronic pain (principal); G20 Parkinson's disease; Z79.899 Other long term (current) drug therapy

== ENCOUNTER 2018-10-06 16:13 | Inpatient (IN) | payer OTHER ==
[~2018-10-06] VITALS: Ht 152.4 cm; Wt 93.1 kg
[2018-10-06 16:14] VITALS: BP 116/77
[2018-10-06 17:54] LABS: URINE BILIRUBIN NEGATIVE (Negative); URINE BLOOD 2+ (Negative); URINE CLARITY CLEAR; URINE COLOR YELLOW; URINE GLUCOSE-RANDOM* NEGATIVE (Negative); URINE KETONES NEGATIVE (Negative); URINE NITRITE-REFLEX NEGATIVE (Negative); URINE PROTEIN (DIPSTICK) TRACE (Negative); URINE UROBILINOGEN 0.2 E.U./dl (0.2-1.0)
[2018-10-06 17:55] LABS: ABSOLUTE NEUTROPHILS 3.5 thou/uL (1.4-8.2); BASOPHILS 1.3 % (0.0-2.0); EOSINOPHILS 2.6 % (0.0-3.0); HEMATOCRIT 33.6 % (42.0-52.0); HEMOGLOBIN 10.7 gm/dL (14.0-18.0); LYMPHOCYTES 20.5 % (24.0-44.0); MCH 27.2 pg (26.0-34.0); MCHC 31.7 g/dL (28.0-37.0); MCV 85.7 fL (80.0-100.0); MONOCYTES 10.3 % (1.0-8.0); PLATELET COUNT 348 thou/uL (150-400); POLYS 65.3 % (36.0-66.0); RBC 3.92 mil/uL (4.50-6.00); RDW 15.5 % (10.5-14.5); WBC 5.4 thou/uL (4.0-11.0)
[2018-10-06 17:56] LABS: URINE LEUKOCYTES-REFLEX 3+ (Negative)
--- NOTE | 2018-10-06 17:56 | NUR ---
VASCULAR ACCESS CONSULTED TO PLACE LINE FOR ABX. PT'S LABS,MEDS,HISTORY REVIEWED. DISCUSSED BENEFITS AND RISK OF MIDLINE WITH PT AND SISTERS,VERBALIZED UNDERSTANDING. PT WAS PREPPED AND DRAOPED FOR MAX BARRIER PRECAUTIONS. CARRI BRACHIAL WAS WIDELY PATENT WITH USG,1% LIDOCAINE GIVEN SQ. 4FR POWER MIDLINE TRIMMED TO 10CM INSERTED TO 0CM WITH BRISK BR. ML SECURED AND RELEASED FOR IMMEDIATE USE PER PROTOCOL TO RN
[2018-10-06 18:06] LABS: CALCIUM 9.5 mg/dL (8.5-10.1); CREATININE 0.8 mg/dL (0.7-1.3); POTASSIUM 3.9 mmol/L (3.5-5.1)
[2018-10-06 18:13] LABS: ALBUMIN 2.8 g/dL (3.4-5.0); DIRECT BILIRUBIN 0.1 mg/dL (<0.1-0.3); TOTAL BILIRUBIN 0.4 mg/dL (<0.1-1.0); TOTAL PROTEIN 8.3 g/dL (6.4-8.2)
[2018-10-06 18:15] LABS: BACTERIA-REFLEX >30 Many /HPF (None Seen); CASTS None Seen /LPF (None Seen); CRYSTALS None Seen /LPF (None Seen); SQUAMOUS 0-3 Few /LPF (0-3); URINE RBC 3-10 Few /HPF (0-2); URINE WBC-REFLEX >25 Many /HPF (0-5)
[2018-10-06 18:27] VITALS: BP 118/81
[2018-10-06 18:55] VITALS: BP 122/82
[2018-10-06 22:43] VITALS: BP 131/73
[2018-10-07 00:36] VITALS: BP 137/76
[2018-10-07 05:00] VITALS: BP 143/94
[2018-10-07 07:38] VITALS: BP 111/68
--- NOTE | 2018-10-07 11:32 | NUR ---
ASSESSMENT-PT WENT TO [facility] 09/02 BUT HAD DISCHARGED BACK HOME WITH FAMILY AND [facility] FOLLOWING. PT HAS BEEN USING A WALKER TO GET AROUND AND MOVES VERY SLOWLY. PT'S SISTER SARA AND LOLA ARE HIS CAREGIVERS. PT HAS A WC, HOSPITAL BED, GRAB BARS AND SHOWER CHAIR AT HOME ALREADY. FOLLOWING TO ASSIST WITH DC PLANNING.
[2018-10-07 12:50] VITALS: BP 122/87
--- NOTE | 2018-10-07 15:18 | NUR ---
Pt. IS ORIENTED 4X; ADMITTED TO THE UNIT FOR UTI-PSEUDOMONAS IN THE URINE. STUDENT NURSE AND Pt. HAVE BUILT EXCELLENT RAPPORT THROUGHOUT THE DAY. Pt. HAS BEEN COMPLIANT WITH REPOSITIONS IN THE BED TO RELIEVE PRESSURE ON COCCYX. DR. ARMENTA VISITED WITH Pt. TODAY ABOUT OXYCODONE Rx; NEW ORDERS WERE REQUESTED FOR A DOSAGE INCREASE FROM 5 MG TO 10 MG.
--- NOTE | 2018-10-07 15:23 | NUR ---
I have reviewed and concur with student documentation.
[2018-10-07 16:00] VITALS: BP 108/67
--- NOTE | 2018-10-07 18:41 | NUR ---
Pt family wanted to meet with [facility] in am regarding dc plan.Rn encouraged pt sister to call case monitor in am to assist.Family in at present visiting.Will continue to monitor.
[2018-10-07 19:50] VITALS: BP 120/79
--- NOTE | 2018-10-08 04:59 | NUR ---
PATIENT ALERT AND ORIENTED X4. C/O PAIN X1. MED GIVEN. D/Y HANDS HURTING TOLD PATIENT TO CALL OUT WHEN HE NEEDED A DRINK. HAS SOFT TOUCH CALL LIGHT BECAUSE OF HANDS. SLEPT LITTLE THE FIST OF THE NIGHT BUT NIGHT WORE ON SLEPT MORE.
[2018-10-08 08:03] VITALS: BP 107/71
--- NOTE | 2018-10-08 11:07 | NUR ---
Assess due to high BMI 40.1=extreme class III obesity. Pt cared for by sisters at home. Hx bilateral chronic lymphedema. Wts are highly variable ~205-225 in past records. Tolerates regular diet and usually will eat >75% meals. Low nutrition risk
--- NOTE | 2018-10-08 15:36 | NUR ---
PT'S SISTER SARA CALLED WANTING TO TRY TO BE HERE TOMORROW WHEN DRS ROUND TO SEE WHAT THEIR PLAN OF ACTION FOR TREATING PT'S INFECTION WILL BE. ALL 3 OF PT'S SISTERS WORK BUT ONE WOULD LIKE TO BE HERE WHEN DRS ARE ROUNDING. PT GETS OVERWHELMED WHEN PRESENTED WITH A LOT OF INFORMATION. FOLLOWING.
[2018-10-08 16:07] VITALS: BP 106/73
[2018-10-08 19:52] VITALS: BP 134/79
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
--- NOTE | 2018-10-08 20:17 | NUR ---
ASSUMED CARE OF PT AT 0700. ASSESSMENT COMPLETED. ROOM AIR. DENIES SOA OR CHEST PAIN. RAO CATHETER IN PLACE. C/O GENERALIZED PAIN, PAIN MEDS GIVEN ORDERED. A&O,X4. CONTRACTURES NOTED. SOFT TOUCH CALL LIGHT WITHIN REACH. MAKES NEEDS KNOWN. PT IN STABLE CONDITION.
--- NOTE | 2018-10-09 01:23 | NUR ---
Assumed care of pt at 1900. Pt alert and oriented x4. Reyes catheter in place. Refuses q2h turns for most of shift. Education provided. Pt states he wants to be on his back to sleep overnight. Prn pain meds administered. IV antibiotics administered. Soft-touch call light in place. Pt able to make needs heard. Fall precautions in place. Will continue to monitor.
[2018-10-09 05:10] VITALS: BP 119/77
[2018-10-09 08:03] VITALS: BP 100/65
--- NOTE | 2018-10-09 11:51 | NUR ---
ASSUMED CARE AT 0700, SHIFT ASSESSMENT DONE, MEDS GIVEN, VSS. REPORTED PAIN, PRN PAIN MEDS GIVEN. Q2 TURN, REPOSITIONED, FALL PRECAUTIONS IN PLACE. WILL CONTINUE TO ASSESS AND ASSIST WITH ADLs NEEDED.
--- NOTE | 2018-10-09 13:29 | NUR ---
FAXED REFERRAL TO [facility] SPOKE WITH STEVEN IN ADM. THEY CANNOT ACCEPT PT. DUE TO AGE LIMIT NEED TO BE >62 YR.OLD. FAXED REFERRAL TO [facility] SPOKE WITH HUDSON IN ADM, SHE RECEIVED REFERRAL BUT CANNOT ACCEPT ANY NEW PT'S RIGHT NOW DUE TO PT'S IN FACILITY HAS INFLUENZA NO ADM. TIL NEXT WEEK. DCP TO FOLLOW.
--- NOTE | 2018-10-09 14:12 | NUR ---
FAXED REFERRAL TO [facility] AT [facility] LEFT MSG WITH GINNY IN ADM. TO REVIEW AND THAT WE ANTICIPATE DC TOMORROW. FAXED REFERRAL TO [facility] SPOKE WITH LEFT MSG WITH ADM. TO REVIEW.
--- NOTE | 2018-10-09 15:15 | NUR ---
FAXED REFERRAL TO [facility] SPOKE WITH ADM. THEY RECEIVED REFERRAL AND WILL REVIEW.
[2018-10-09 16:20] VITALS: BP 118/58
--- NOTE | 2018-10-09 16:28 | NUR ---
FAXED REFERRAL TO [facility] SPOKE WITH MOLLY IN ADM. SHE RECEIVED REFERRAL AND WILL REVIEW. FAXED REFERRAL TO [facility] SPOKE WITH MYRIAM SHE WILL LET ADM. KNOW ABOUT REFERRAL. [facility] THEY RECEIVED REFERRAL AND CANNOT ACCEPT ON IV ABX. DCP TO FOLLOW.
[2018-10-09 20:07] VITALS: BP 108/72
--- NOTE | 2018-10-10 04:57 | NUR ---
ASSUMED PT CARE 0. PT ALERT AND ORIENTED. REASSESSMENT COMPLETE. VSS. MIDLINE DRESSING C/D/I, NO SIGNS OF INFILTRATION. DENIES N/V. PT REPORTS PAIN, SEE EMAR. SOFT TOUCH CALL LIGHT WITHIN REACH, WILL CONTINUE POC UNTIL EOS.
[2018-10-10 05:40] VITALS: BP 118/69
[2018-10-10 07:19] VITALS: BP 116/79
[2018-10-10] MEDS ORDERED: MEROPENEM 1 GM V1 GM IVPB (10:36)
[2018-10-10] MEDS ORDERED: FIRVANQ50 MG/1 ML PO (10:37)
[2018-10-10] MEDS ORDERED: OXYCODONE HCL10 MG PO (10:37)
--- NOTE | 2018-10-10 13:45 | NUR ---
Following for d/c planning needs. Spoke with library services coordinator at [facility]. They are able to accept due to cost of IVAB. Called [facility] and left message. Have not received return call. Called [facility] and spoke with library services coordinator. They do not have a bed available today, but may have one on Saturday. Called [facility]. Received telephone call from [facility] and they are able to accept today. Arranged stretcher transport through [facility] for pick-up between [phone]. Chart copied. Faxed orders to facility. Pt is agreeable to plans. Patient choice letter signed and placed on chart. No other needs identified.
--- NOTE | 2018-10-10 17:09 | NUR ---
ASSUMED CARE OF PT AT 0700. ASSESSMENT COMPLETED. A&O,X4. PARAPLEGIC. SOFT TOUCH CALL LIGHT WITHIN REACH. MAKES NEEDS KNOWN. ROOM AIR. DENIES SOA. RAO CATHETER IN PLACE. BM TODAY. C/O CHRONIC PAIN, PAIN MEDS GIVEN ORDERED. NEW DISCHARGE ORDERS. REPORT CALLED TO [facility]. PT LEFT VIA [facility] AT 1549.
== END 2018-10-10 16:04 | DRG 689 ==
LOC: ER 16:13 → 4E 18:29 → EROBS 18:29 → 4E 19:18
PROVIDERS: Emergency Medicine; ADMIT Hospitalist
PROC: 05HY33Z Insertion of Infusion Device into Upper Vein, Percutaneous Approach (ICD-10-PCS; principal; 2018-10-06)
PROC: B54NZZA Ultrasonography of Left Upper Extremity Veins, Guidance (ICD-10-PCS; principal; 2018-10-06)
DX: N39.0 Urinary tract infection, site not specified (principal); E43 Unspecified severe protein-calorie malnutrition; Z68.41 Body mass index [BMI] 40.0-44.9, adult; Z96.642 Presence of left artificial hip joint; I73.9 Peripheral vascular disease, unspecified; G89.29 Other chronic pain; K21.9 Gastro-esophageal reflux disease without esophagitis; I50.9 Heart failure, unspecified; G20 Parkinson's disease; Z16.24 Resistance to multiple antibiotics; I89.0 Lymphedema, not elsewhere classified; B96.5 Pseudomonas (aeruginosa) (mallei) (pseudomallei) as the cause of diseases classified elsewhere; Z95.820 Peripheral vascular angioplasty status with implants and grafts; Z88.6 Allergy status to analgesic agent
CPT/HCPCS: 10084; 27000

== ENCOUNTER → 2018-11-26 | Outpatient (CLI) | payer OTHER ==
[~2018-11-26] MED LIST changes: +FIRVANQ50 MG/1 ML PO; +MEROPENEM 1 GM V1 GM IVPB
[2018-11-26 10:48] VITALS: BP 140/98
--- NOTE | 2018-11-26 11:02 | NUR ---
Pain Clinic Assessment: 1. History of Osteoarthritis: NO History of Rheumatoid Arthritis: NO 2. Height: ft. in. cm. Weight: lb. oz. kg. Patient's BMI: 3. Vital Signs: BP: 140/98 Pulse: 88 Resp: 16 Temp: 02 Sat: 100 ECG Mon: 4. Pain Intensity: 6 5. Fall Risk: Dizziness: N Needs help standing or walking: Y Fallen in the last 3 months: N Fall risk comments: 6. Patient on Blood Thinner: None 7. History of Hypertension: Y 8. Opioid Therapy greater than 6 weeks: Y Opiate Contract Signed: 12/08/15 9. Risk Assessment Tool Provided: 0 LOW RISK 10. Functional Assessment Tool: 11. Recreational Drug Use: Unknown Drug Type: Tobacco Use: Never Smoker Tobacco Type: Amount or Packs/day: How Many Years: Alcohol Use: No Frequency: Quant:
--- NOTE | 2018-11-28 08:08 | HPC ---
[facility] [place] [address] PAIN MANAGEMENT CONSULTATION Name: TESSYPANCHO Room #: REG [facility] Emre#: [id number] Admission: 11/26/18 ������������������ Attend Phys: Mena Barger Discharge: ������������������ Date of : 60 Report #: [id number] THIS REPORT FOR: //name// CC: Mena Hoffmana Garrett DATE OF SERVICE: 11/26/2018 CHIEF COMPLAINT: Chronic pain associated with Parkinson disease. HISTORY OF PRESENT ILLNESS: The patient returned to the pain clinic today for refill of his medications. He tells me that most of his pain is located in his legs and thighs and his right hand. He rates it as 6/10 today, worse with prolonged sitting or quick movements. Medications are very helpful. He is here with his two sisters, tells us that he has been in the hospital off and on for a urinary tract infection and then he did develop C. diff as well last fall and he did go to rehab after his short bout in the hospital. They are trying to persuade him to have a suprapubic catheter placed to try to decrease some of his urinary tract infections that he keeps acquiring by having an indwelling Reyes catheter. The patient tells me today that he is out of his medications. I did question him on this since he had been in the hospital and in rehab, he should have extra pills. The patient tells me that sometimes he is taking 1-1/2 tablets several times a day instead of the one tablet. ALLERGIES: MORPHINE. CURRENT LIST OF MEDICATIONS: OxyIR 10 mg b.i.d., zinc daily, Zanaflex 2 mg p.r.n., vitamin C, Protonix 20 mg daily, tamsulosin 0.4 mg daily, Requip 0.25 three times a day, vitamin B12, vitamin D3, Lasix 40 mg b.i.d., potassium 20 mEq daily, carbidopa/levodopa 25/100 three times a day and oxycodone 5 mg p.r.n. PQRS: 1. He denies any rheumatoid arthritis. He does have arthritic changes in his hips. 2. Height is 5 feet 10, unsure of his weight today. 3. Vital signs, 140/98, pulse is 88, respirations 16 and oxygen sat is 100. 4. Pain score is 6/10. 5. Fall risk, denies dizziness. He is in a wheelchair today, has not fallen in the last 3 months. 6. The patient is not on any blood thinners. He does take medicine for hypertension. 7. Opioid therapy is greater than 6 weeks; therefore, an opioid signed contact is on the chart. His risk assessment tool is low. Functional assessment is 40/70. [address] [address] PAIN MANAGEMENT CONSULTATION Name: PANCHO STILL Room #: REG CL Emre#: [id number] Admission: 11/26/18 ������������������ Attend Phys: Mena Barger Discharge: ������������������ Date of : 60 Report #: [id number] 8. Recreational drug use, denies. He is not a smoker and does not drink alcohol. According to the prescription monitoring system, the patient is filling appropriately for his medications, but he is out of his pain medicines today, though he had been in the hospital and in rehab facility for a significant amount of time. This was addressed with the patient today. PHYSICAL EXAMINATION: GENERAL: This is a well-developed, well-nourished gentleman, who appears his stated age. He is alert and orientated, in his wheelchair today, with 2 family members present. HEENT: Normocephalic, atraumatic. Extraocular eye muscles are intact. Eyes have kind of watery drainage today. NECK: Without adenopathy. He does have decreased range of neck motion due to his Parkinson's in his neck and his arms. MUSCULOSKELETAL: In a wheelchair. Right arm has limited movement due to loss of muscle tone and bulk. 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 His lower extremities have edema about 1+ due to his lymphedema history. A Reyes catheter is present as well. We reviewed the fact that opiate medications are being used to provide analgesia adequate to support activities of daily living, not attempting to achieve a specific pain score on the 0-10 Visual Analog Scale. The current opiate medications are providing sufficient analgesia to allow the patient to participate in activities of daily living. The patient is not exhibiting any aberrant behavior suggestive of drug diversion. The patient is not having any adverse reactions to medications. The patient is not suffering from daytime somnolence or mental acuity changes. The patient is managing opiate-induced constipation with appropriate bgvq-rxo-bnjnolb agents and dietary considerations. The patient was counseled on concern for caution with operating a motor vehicle while using opiate medications. A physical exam was performed and the patient's functional status was evaluated. All patients with back pain were advised against the bed rest greater than 4 days and were advised to return to normal activities. Pain score assessment was noted and the treatment plan was reviewed with the patient. All current medications, both prescribed and OTC were reviewed and reconciled on the electronic medical record. Tobacco screening was accomplished and smoking cessation was advised when indicated. BMI was noted and diet/exercise modification was recommended for all patients following outside normal parameters. I reviewed with the patient today their responsibilities to safeguard prescription medications, reviewed their responsibility to utilize medications only as prescribed by the physician. They are to seek and receive pain [facility] [address] [place] [address] PAIN MANAGEMENT CONSULTATION Name: PANCHO STILL Minerva Room #: REG [facility].#: [id number] Admission: 11/26/18 ������������������ Attend Phys: Mena Barger Discharge: ������������������ Date of : 60 Report #: [id number] medications only from 1 physician group ([facility]). They are to use 1 pharmacy and keep the clinic informed if they change pharmacies. Their responsibilities include making followup visits in a timely fashion and to avoid abrupt discontinuation of medication usage. Their responsibilities further include bringing their medications (bottles from the pharmacy with residual pills) to the visit for possible confirmation of pill counts and the patient understands it is their responsibility to submit to random drug screens to ensure both that the medications prescribed are present, and that no other controlled substances are present. All prescriptions provided today were generated electronically. ASSESSMENT: 1. Parkinson's disease. 2. Chronic lymphedema in his lower extremities. 3. History of venous insufficiency. 4. 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 5. Urinary tract infection frequency. 6. History of Clostridium difficile. 7. Management of high-risk medications under the terms of written opioid agreement. PLAN: 1. We discussed treatment options with the patient today. The patient tells me that he had been in the hospital and at rehab several times since we have last seen him due to frequent urinary tract infections. They are wanting to place a suprapubic catheter, but he was refusing this in the hospital, but he is slowly considering it. We did talk about that if he had this placed it will hopefully decrease some of his infections that he is having. If he becomes more compromised, it is harder to fight off these infections and I encouraged him to seriously think about having the suprapubic catheter placed. 2. We discussed his medications. He tells me he is out of those today despite being in the hospital and rehab in September and in October. He should have had several days, possibly a week, of medications left. He tells me at times he was taking 1-1/2 tablets a day. We discussed how they are written per Dr. Ovalles at one tablet twice a day of his OxyIR 10 mg and then he has been able to take 1-2 of his 5 mg oxycodone. I reiterated that he needs to follow this protocol that the doctor has set up. The patient verbalizes understanding. 3. We talked with family members that were present today. They will keep his medications and set out his allotted medications for the day from now on. Prescriptions given today for his OxyIR 10 mg #60 for today and 4-week release and his oxycodone 5 mg, 50 tablets for today and 4-week release. I do think it might be beneficial to place him on a long-acting medication in the future, but I will discuss this with Dr. Ovalles. This may help some of his increased pain that he is experiencing sometimes throughout the day. [facility] [address] [place] [address] PAIN MANAGEMENT CONSULTATION Name: PANCHO STILL Room #: REG TIANNA Andrea#: [id number] Admission: 11/26/18 ������������������ Attend Phys: Mena Barger Discharge: ������������������ Date of : 60 Report #: [id number] 4. The patient is seen in collaboration today with Dr. Best Dawson and the patient will be followed up in 2 months. ��������������������������������������������� <ELECTRONICALLY SIGNED> ���������������������������������������� By: Mena Barger ��������������������������������������������� 11/28/18 [id number] Mena Barger /alexandro
== END ==
LOC: PAIN 11-21 13:29
DX: G21.9 Secondary parkinsonism, unspecified (principal); N39.0 Urinary tract infection, site not specified; I89.0 Lymphedema, not elsewhere classified; Z79.899 Other long term (current) drug therapy

== ENCOUNTER → 2019-04-15 | Outpatient (CLI) | payer OTHER ==
[2019-04-15 13:40] VITALS: BP 144/97
--- NOTE | 2019-04-15 13:55 | NUR ---
Pain Clinic Assessment: 1. History of Osteoarthritis: NO History of Rheumatoid Arthritis: NO 2. Height: ft. in. cm. Weight: lb. oz. kg. Patient's BMI: 3. Vital Signs: BP: 144/97 Pulse: 96 Resp: 16 Temp: 02 Sat: 97 ECG Mon: 4. Pain Intensity: 6 5. Fall Risk: Dizziness: N Needs help standing or walking: Y Fallen in the last 3 months: N Fall risk comments: 6. Patient on Blood Thinner: None 7. History of Hypertension: Y 8. Opioid Therapy greater than 6 weeks: Y Opiate Contract Signed: 12/08/15 9. Risk Assessment Tool Provided: 0 LOW RISK 10. Functional Assessment Tool: 11. Recreational Drug Use: Unknown Drug Type: Tobacco Use: Never Smoker Tobacco Type: Amount or Packs/day: How Many Years: Alcohol Use: No Frequency: Quant:
--- NOTE | 2019-04-16 08:58 | HPC ---
[facility] [address] [address] PAIN MANAGEMENT CONSULTATION Name: PANCHO STILL Minerva Room #: REG [facility].#: [id number] Admission: 04/15/19 Attend Phys: Mena Barger Discharge: Date of : 60 Report #: [id number] THIS REPORT FOR: //name// CC: Mena Garrett MD DATE OF SERVICE: 04/15/2019 CHIEF COMPLAINT: Chronic pain associated with Parkinson's disease. HISTORY OF PRESENT ILLNESS: This is a very pleasant 59-year-old gentleman who returns to the pain clinic today for a refill of his medications. He reports he was able to go 4 months since his last visit here. The part of that time, he was hospitalized in [facility] for a urinary tract infection that did affect his blood. He was on IV antibiotics for at least 3 weeks. While in the hospital, he reports he did not go to a rehabilitation center. He was able to go back home after his hospitalization. He is here today, rating a pain score of 6/10 complaining of most of his pain is in his left thigh today, but he does also have bilateral leg pain. It is an achy, sore sharp pain of rating 6/10, but he does feel that his medications are beneficial. ALLERGIES: MORPHINE. CURRENT LIST OF MEDICATIONS: OxyIR 10 mg b.i.d. p.r.n., zinc, tizanidine, oxycodone 5 mg p.r.n., ascorbic acid, Protonix, Flomax, Requip, vitamin B12, vitamin D, Lasix 40 mg b.i.d., potassium 20 mEq daily, carbidopa/levodopa 25/100 t.i.d. PQRS: 1. He denies any rheumatoid arthritis. He has arthritic changes in his bilateral hips. 2. Height is 5 feet 10 inches, not weighed today. 3. Vital signs, 144/97, pulse is 96, respirations 16, oxygen sat is 97. 4. Pain score is 6/10. 5. Denies dizziness. He is in a wheelchair. Does need significant help with movement. He has not fallen in the last 3 months. 6. The patient is not on any blood thinners, but does take medicine for hypertension. His opioid therapy is greater than 6 weeks; therefore, an opioid signed contract is on the chart. Risk assessment tool is low. Functional assessment is 40/70. 7. Recreational drug use, he denies. He is not a smoker and does not drink alcohol. According to the prescription monitoring system, he is filling appropriately [address] [address] PAIN MANAGEMENT CONSULTATION Name: PANCHO STILL Room #: REG TIANNA Andrea#: [id number] Admission: 04/15/19 Attend Phys: Mena Barger Discharge: Date of : 60 Report #: [id number] for his medications, though he was in the hospital for some time and did receive the medications at that time, but no prescriptions. PHYSICAL EXAMINATION: GENERAL: This is a well-developed, well-nourished male who appears his stated age. He is alert and orientated. He is in a wheelchair with family present today, rating his pain score at 6/10. HEENT: Normocephalic, atraumatic. Extraocular eye muscles are intact. NECK: Without adenopathy. He does have decreased range of motion related to his Parkinson's in his neck and his arms. MUSCULOSKELETAL: He has limited movement of his right arm with decreased muscle bulk and tone. He has contractures in his right hand. His lower extremity edema is 1+. He has a Reyes catheter present. He is in a wheelchair as well. We reviewed the fact that opiate medications are being used to provide analgesia adequate to support activities of daily living, not attempting to achieve a specific pain score on the 0-10 Visual Analog Scale. The current opiate medications are providing sufficient analgesia to allow the patient to participate in activities of daily living. The patient is not exhibiting any aberrant behavior suggestive of drug diversion. The patient is not having any adverse reactions to medications. The patient is not suffering from daytime somnolence or mental acuity changes. The patient is managing opiate-induced constipation with appropriate uvlq-lvh-dgfrpeu agents and dietary considerations. The patient was counseled on concern for caution with operating a motor vehicle while using opiate medications. A physical exam was performed and the patient's functional status was evaluated. All patients with back pain were advised against the bed rest greater than 4 days and were advised to return to normal activities. Pain score assessment was noted and the treatment plan was reviewed with the patient. All current medications, both prescribed and OTC were reviewed and reconciled on the electronic medical record. Tobacco screening was accomplished and smoking cessation was advised when indicated. BMI was noted and diet/exercise modification was recommended for all patients following outside normal parameters. I reviewed with the patient today their responsibilities to safeguard prescription medications, reviewed their responsibility to utilize medications only as prescribed by the physician. They are to seek and receive pain medications only from 1 physician group ([facility]). They are to use 1 pharmacy and keep the clinic informed if they change pharmacies. Their responsibilities include making followup visits in a timely fashion and to avoid abrupt discontinuation of medication usage. Their responsibilities further include bringing their medications (bottles from the pharmacy with residual pills) to the visit for possible confirmation of pill counts and the patient understands it is their responsibility to submit to random drug screens to [facility] [address] [place] [address] PAIN MANAGEMENT CONSULTATION Name: PANCHO STILL Minerva Room #: REG [facility].#: [id number] Admission: 04/15/19 Attend Phys: Mena Barger Discharge: Date of : 60 Report #: [id number] ensure both that the medications prescribed are present, and that no other controlled substances are present. All prescriptions provided today were generated electronically. ASSESSMENT: 1. Parkinson disease. 2. Chronic lymphedema in his lower extremities. 3. Left thigh pain. 4. 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 5. Urinary tract infections with indwelling Reyes catheter. 6. History of Clostridium difficile. 7. Management of high-risk medications under terms of written opioid agreement. PLAN: We discussed treatment options with the patient today. I explained to him that Dr. Ovalles and I have discussed possible long-term medication opioids for him. The patient is worried that we will give him morphine, which he is allergic to. I explained to him that is not the medication that we were considering. We are thinking of Xtampza at a low dose. That way, he would have hopefully better pain control throughout the day. The patient is very worried about changing his medications. I reiterated that we are considering that we will not change his medications today. The patient is thankful for that. Scripts given today for his oxycodone 5 mg every 8 hours, #50, for today and 4-week release and oxy 10 mg, #60, for today and 4-week release. This is 52 mme according to the CDC guidelines. He denies constipation or daytime sommelance. The patient is seen in collaboration with Dr. Anatoly Ovalles who did see the patient as well today. The patient will return in 2 months as followup visit. <ELECTRONICALLY SIGNED> By: Mena Barger 04/16/19 [id number] Mena Barger /nt
== END ==
LOC: PAIN 07:09
DX: G89.29 Other chronic pain (principal); G20 Parkinson's disease; I89.0 Lymphedema, not elsewhere classified; M79.652 Pain in left thigh; N39.0 Urinary tract infection, site not specified; Z96.0 Presence of urogenital implants; Z79.899 Other long term (current) drug therapy; Z79.891 Long term (current) use of opiate analgesic; Z88.5 Allergy status to narcotic agent

== ENCOUNTER → 2019-08-05 | Outpatient (CLI) | payer OTHER ==
--- NOTE | ~2019-08-05 | HPC ---
[facility] [place] [address] [address] PAIN MANAGEMENT CONSULTATION Name: PANCHO STILL Room #: REG TIANNA Singh#: [id number] Admission: 08/05/19 Attend Phys: Dodie Ovalles MD Discharge: Date of : 60 Report #: [id number] THIS REPORT FOR: cc: Karolina Garrett MD,Dodie Rock MD, MD ~ CC: Dodie Garrett DATE OF SERVICE: 08/05/2019 CHIEF COMPLAINT: Still having pain associated with Parkinson's. HISTORY: The patient is a 59-year-old gentleman who has been followed in the pain clinic because of chronic pain. As you may recall, he suffers from Parkinson's disease. He continues to have pain in his right hand and right leg. He has had problems with pain since 06/2015. Has pain involving his right hand as well as his right leg. He did fall. He was hospitalized for a period of time at a recovery facility. Notes his pain is a 6/10. Prolonged sitting and activity can exacerbate his discomfort. He does continue to have some swelling in his lower extremities. He has had stents in his legs on both sides. Notes some numbness, tingling, and tremor activity. He has been followed in the wound clinic in the past because of skin breakdown. ALLERGIES: MORPHINE. CURRENT MEDICATIONS: OxyIR 10 mg 1 p.o. b.i.d., zinc, tizanidine, oxycodone 5 mg p.r.n., ascorbic acid, Protonix, Fosamax, Requip, vitamin B12, vitamin D, Lasix 40 mg b.i.d., potassium 20 mEq, carbidopa/levodopa 25/100 t.i.d., Requip 0.25 mg t.i.d., Vancomycin 125 mg oral q.6 hours, Roxicodone 5 mg q.8 hours at this juncture. PAIN CLINIC ASSESSMENT AND PQRS: 1. The patient denies being treated for rheumatoid arthritis. Has some arthritic changes in his hips bilaterally. 2. Height 5 feet 10 inches, no weight today. 3. Vital signs: Blood pressure 124/90, pulse 93, respiratory rate 14, room air saturation 96%. 4. Pain intensity, 11/24. 5. Fall history. The patient has fallen in the last 3 months. 6. Blood thinner. The patient is not on a blood thinning medication. 7. Hypertension. The patient is being treated for hypertension. 8. Opioids greater than 6 weeks. The patient received medication from one source, the pain clinic. 9. Risk assessment tool, low for opioid use. 10. Functional assessment tool, . [address] [address] PAIN MANAGEMENT CONSULTATION Name: PANCHO STILL [id number] Admission: 08/05/19 Attend Phys: Dodie Ovalles MD Discharge: Date of : 60 Report #: [id number] 11. Recreational drug use. The patient denies. 12. Tobacco. The patient has never smoked. 13. Alcohol. The patient denies use of alcoholic beverages. PHYSICAL EXAMINATION: GENERAL: The patient is a well-developed, well-nourished, black male, appears his stated age. He is alert and oriented x 3. He does have slow movement. He is exhibiting signs of Parkinsonism. Has somewhat blunted facial expressions. Speech is somewhat slowed. He is accompanied by his family member. HEENT: Normocephalic, atraumatic. Extraocular eye muscles intact. Sclerae nonicteric. Mucous membranes moist. MUSCULOSKELETAL: Limited right arm with decreased muscle bulk and tone. Beginning to show some contractures in his right hand. Lower extremity edema. Has a Reyes catheter in place. He is in a wheelchair. IMPRESSION: 1. Parkinson's disease involving his hands. 2. Chronic lymphedema in the lower extremities. 3. History of venous insufficiency. 4. 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 5. Left hip replacement, status post osteoarthritic changes. 6. Gait and movement problems secondary to Parkinson's disease. The patient is in a wheelchair. RECOMMENDATIONS: We discussed treatment options with the patient. At this juncture, we will continue with his current medical regimen of OxyIR 5 mg 1 p.o. t.i.d. He will also continue with the OxyIR 10 mg b.i.d. The patient will continue with the tizanidine to help with muscle relaxation. He will call us if he has any problems with his medications. A script for his medications has been written. We would like to thank you for letting us participate in his care. He is aware that opioid medications can be less effective as time goes on. Overall, he feels medications are helpful. They able him to have a more comfortable life. Continues to try to stay as active as possible to continue with movement of his upper as well as lower extremities. We would like to thank you for letting us participate in his care. We hope he continues to improve. By: [id number] [id number] Dodie Ovalles MD /PMT
[2019-08-05 09:27] VITALS: BP 124/90
--- NOTE | 2019-08-05 09:45 | NUR ---
Pain Clinic Assessment: 1. History of Osteoarthritis: NO History of Rheumatoid Arthritis: NO 2. Height: ft. in. cm. Weight: lb. oz. kg. Patient's BMI: 3. Vital Signs: BP: 124/90 Pulse: 93 Resp: 14 Temp: 02 Sat: 96 ECG Mon: 4. Pain Intensity: 6 5. Fall Risk: Dizziness: N Needs help standing or walking: Y Fallen in the last 3 months: N Fall risk comments: 6. Patient on Blood Thinner: None 7. History of Hypertension: Y 8. Opioid Therapy greater than 6 weeks: Y Opiate Contract Signed: 12/08/15 9. Risk Assessment Tool Provided: 0 LOW RISK 10. Functional Assessment Tool: 11. Recreational Drug Use: Past greater than 3 mos Drug Type: Tobacco Use: Never Smoker Tobacco Type: Amount or Packs/day: How Many Years: Alcohol Use: No Frequency: Quant:
== END ==
LOC: PAIN 06:40
DX: G20 Parkinson's disease (principal); G25.9 Extrapyramidal and movement disorder, unspecified; I89.0 Lymphedema, not elsewhere classified; R26.9 Unspecified abnormalities of gait and mobility; Z96.642 Presence of left artificial hip joint; Z79.899 Other long term (current) drug therapy

== ENCOUNTER → 2019-09-30 | Outpatient (CLI) | payer OTHER ==
--- NOTE | ~2019-09-30 | HPC ---
[facility] [place] [address] PAIN MANAGEMENT CONSULTATION Name: PANCHO STILL [id number] Admission: 09/30/19 Attend Phys: Dodie Ovalles MD Discharge: Date of : 60 Report #: [id number] THIS REPORT FOR: cc: Karolina Garrett MD,Dodie Rock MD, MD ~ CC: Dodie Garrett DATE OF SERVICE: 09/30/2019 THIS VISIT IS THROUGH [employer]ELEN[employer] CHIEF COMPLAINT: "I am still having pain and the medicine is helpful. HISTORY: The patient is a 59-year-old gentleman who has been followed in the pain clinic because of chronic pain associated with Parkinson's disease. He still has pain in the usual areas. He has pain in the lower extremities with some lymphedema. He also has chronic pain in his thighs. He still has some weakness in his upper extremities. He feels that his medications are helpful. He has had no complications from their use. He still has weakness in the hand. As you may recall, he did undergo surgery because of breakdown of his skin. He would like to continue with his medications. ALLERGIES: No known drug allergies. CURRENT MEDICATIONS: OxyIR 10 mg 1 p.o. b.i.d., zinc, tizanidine, oxycodone 5 mg p.r.n., ascorbic acid, Protonix, Flomax, Requip, vitamin B12, vitamin D, Lasix 40 mg b.i.d., potassium 20 mEq, carbidopa/levodopa 25/100 t.i.d. PAIN CLINIC ASSESSMENT AND PQRS: 1. The patient has pain and discomfort in the lower extremities. He has some arthritic changes in his hips bilaterally. He is not being treated for rheumatoid arthritis. 2. ____ height 5 feet 10 inches. 3. Pain score 6/10. 4. The patient is not on a blood thinning medication. 5. The patient is not being treated for hypertension. 6. Opioids: The patient receives medication from the pain clinic. 7. Risk assessment: Low for opioid use. 8. Functional assessment tool: About 40/70. 9. Recreational drug use: The patient denies. 10. Tobacco: The patient denies. 11. Alcohol. The patient denies use of alcoholic beverages. REVIEW OF SYSTEMS: [address] [address] PAIN MANAGEMENT CONSULTATION Name: TESSYPANCHO Room #: REG [facility]#: [id number] Admission: 09/30/19 Attend Phys: Dodie Ovalles MD Discharge: Date of : 60 Report #: [id number] GENERAL: The patient's voice sounds clear. He speaks with his usual tawana. Sometimes a little bit difficult to distinguish what he is saying because of his Parkinson's and he is able to repeat that statement and it is easily understood. CONSTITUTIONAL: The patient states that nothing significant has changed. HEENT: Eyes, ears, nose, and throat: No significant changes. CARDIOVASCULAR: No changes. RESPIRATORY: No changes. GASTROINTESTINAL: No changes. GENITOURINARY: The patient still has a suprapubic catheter in place. MUSCULOSKELETAL: Decreased and rigidity associated with Parkinson's disease. PSYCHIATRIC: No new changes in memory. He does complain of insomnia. ENDOCRINE: No new changes. ALLERGIC: No new allergic changes. IMPRESSION: 1. Parkinson's disease. 2. Chronic lymphedema in the lower extremities. 3. Left thigh pain. 4. 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 5. Urinary tract infections, history with indwelling suprapubic catheter. 6. History of Clostridium difficile. 7. ____ using high risk for opioids to help the patient control his pain. RECOMMENDATIONS: We discussed treatment options with the patient. At this juncture, he feels that his medications continue to be helpful. We will continue with the OxyIR medications 5 mg 1 p.o. q. 8 hours p.r.n. The patient will also continue with tizanidine for muscle spasms b.i.d. He will continue with OxyIR 10 mg 1 p.o. b.i.d. He will call us if he has any concerns. We would like to thank you for letting us participate in his care. We hope he continues to improve. The patient states he is trying to stay indoors and safe given the COVID-19 infections, which are common. By: [id number] Dodie Ovalles MD /nt
== END ==
LOC: TELEPC 09:40
DX: G20 Parkinson's disease (principal); R59.0 Localized enlarged lymph nodes; M79.605 Pain in left leg; Z87.440 Personal history of urinary (tract) infections; Z79.899 Other long term (current) drug therapy

== ENCOUNTER → 2020-01-27 | Outpatient (CLI) | payer OTHER ==
--- NOTE | 2020-02-15 22:36 | HPC ---
[facility] [place] [address] PAIN MANAGEMENT CONSULTATION Name: PANCHO STILL Room #: REG TIANNA Singh.#: [id number] Admission: 01/27/20 Attend Phys: Dodie Ovalles MD Discharge: Date of : 60 Report #: [id number] THIS REPORT FOR: cc: Karolina Garrett MD,Dodie Rock MD, MD ~ CC: Dodie Garrett DATE OF SERVICE: 01/27/2020 THE PATIENT UNDERWENT EVALUATION USING TELE MED. THE PATIENT AGRESS TO PROCEED WITH THE TELE MED VISIT. CHIEF COMPLAINT: Medication is still helpful. The patient is unable to come to the Pain Clinic because of the COVID-19 pandemic. HISTORY: The patient is a 59-year-old gentleman who has been followed in the Pain Clinic. Continues to have pain and discomfort. He has an edema in his lower extremity. Still has pain in his legs. They continue to wrap his legs to help decrease some of the swelling. He feels that his medications are helpful. They are not as helpful and as effective as he would like, but he does feel that they are providing needed benefit. Still suffers from Parkinson's disease. He would like to have his medications renewed. His sisters continue to be quite helpful in his care on a daily basis. He is sheltering at home because of the COVID-19 pandemic. ALLERGIES: No known drug allergies. CURRENT MEDICATIONS: Tizanidine, zinc, OxyIR 10 mg 1 p.o. b.i.d., oxycodone 5 mg, ascorbic acid, Protonix, Flomax, Requip, vitamin B12, vitamin D, Lasix 40 mg b.i.d., potassium 20 mEq, carbidopa/levodopa 25 mg 1 p.o. t.i.d. PAIN CLINIC ASSESSMENT/PQRS: 1. The patient has pain and discomfort in lower extremities. Has some arthritic changes in his hips bilaterally. The patient is not being treated for rheumatoid arthritis. 2. Last height 5 feet, 10 inches. 3. Pain score, 5/10 today. 4. Blood thinner. The patient is not on a blood thinning medication. 5. Hypertension. The patient is not being treated for hypertension. 6. Opioids. The patient receives medications from the Pain Clinic. 7. Risk assessment tool, low for opioid use. 8. Functional assessment tool, . 9. Recreational drug [place] [address] PAIN MANAGEMENT CONSULTATION Name: PANCHO STILL Minerva Room #: REG [facility]#: [id number] Admission: 01/27/20 Attend Phys: Dodie Ovalles MD Discharge: Date of : 60 Report #: [id number] 10. Tobacco: The patient denies. 11. Alcohol. The patient denies use of alcoholic beverages. REVIEW OF SYSTEMS: GENERAL: The patient's voice is clear. He is speaking with his usual slow ____. CONSTITUTIONAL: The patient states that there have been no significant changes. HEENT: No changes. CARDIOVASCULAR: Denies changes. RESPIRATORY STATUS: Denies any new problems. GASTROINTESTINAL: Denies changes. GENITOURINARY: Generally has a suprapubic catheter in place. MUSCULOSKELETAL: Decreased muscle strength and rigidity associated with Parkinson's disease as well as increased edema in the lower extremities with wrapping of the legs to decrease and limit swelling. PSYCHIATRIC: No new memory changes or complaints of insomnia. ENDOCRINE: No new changes. ALLERGIC: No new changes. IMPRESSION: 1. History of Parkinson's disease. 2. Chronic lymphedema of the lower extremity. 3. Left thigh pain. 4. 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 5. Urinary tract infections with an indwelling suprapubic catheter. 6. History of Clostridium difficile. 7. High risk use of opioids secondary to chronic pain. RECOMMENDATIONS: We discussed treatment options with the patient. At this juncture, we will continue with his opioid medications. He states that the medications are helpful. He continues to be helped by his sisters. He continues to note difficulty and stiffness associated with his Parkinson's disease. He feels that his medications continue to be helpful. A script for tizanidine 2 mg p.o. b.i.d., oxycodone 5 mg 1 p.o. q. 8 hours and OxyIR 10 mg b.i.d. have been written and sent to the patient. We would like to thank you for letting us participate in his care. We hope he continues to improve. <ELECTRONICALLY SIGNED> By: Dodie Ovalles MD 02/15/20 [id number] Dodie Ovalles MD /alexandro
== END ==
LOC: PAIN 07-08 06:47 → TELEPC 07:00 → PAIN 13:03
PROVIDERS: ATTEND Anesthesiology Pain Medicine
DX: G20 Parkinson's disease (principal); R60.0 Localized edema; N39.0 Urinary tract infection, site not specified; M79.652 Pain in left thigh; G89.29 Other chronic pain; F11.90 Opioid use, unspecified, uncomplicated; Z96.0 Presence of urogenital implants

== ENCOUNTER 2020-03-21 16:21 | Inpatient (IN) | payer OTHER ==
[~2020-03-21] VITALS: Ht 177.8 cm; Wt 113.4 kg
[~2020-03-21 16:21] MED LIST changes: -FAMOTIDINE 40 M40 M1 PO
[2020-03-21 16:24] VITALS: BP 146/98
[2020-03-21 19:07] LABS: ABSOLUTE NEUTROPHILS 6.8 thou/uL (1.4-8.2); BASOPHILS 0.5 % (0.0-2.0); EOSINOPHILS 1.5 % (0.0-3.0); HEMOGLOBIN 12.5 gm/dL (14.0-18.0); LYMPHOCYTES 14.7 % (24.0-44.0); MCH 28.7 pg (26.0-34.0); MCV 87.1 fL (80.0-100.0); MONOCYTES 8.2 % (1.0-8.0); PLATELET COUNT 365 thou/uL (150-400); POLYS 75.1 % (36.0-66.0); RBC 4.37 mil/uL (4.50-6.00); WBC 9.1 thou/uL (4.0-11.0)
[2020-03-21 19:17] LABS: CALCIUM 8.5 mg/dL (8.5-10.1); CREATININE 0.8 mg/dL (0.7-1.3); POTASSIUM 3.1 mmol/L (3.5-5.1)
[2020-03-21 19:21] LABS: ALBUMIN 2.7 g/dL (3.4-5.0); TOTAL BILIRUBIN 0.2 mg/dL (0.2-1.0); TOTAL PROTEIN 7.6 g/dL (6.4-8.2)
[2020-03-21] MEDS ORDERED: FAMOTIDINE 40 M40 M1 PO (19:48)
--- NOTE | 2020-03-21 19:49 | NUR ---
Sister Va at bedside reports Pt is a feeder.
[2020-03-21 23:07] VITALS: BP 106/62
[2020-03-21 23:16] VITALS: BP 115/71
[2020-03-21 23:30] VITALS: BP 112/88
[2020-03-22 03:35] VITALS: BP 134/75
--- NOTE | 2020-03-22 04:43 | NUR ---
Assumed pt care at 2330,admitted with wounds BLE/buttocks. A/OX4,VSS. Pt's max assist with ADLs,uses a arya lift at home/feeder. Generalized edema noted allover,moreso on thighs/LE nonpitting.Weeping on blisters on BLE,wound care done w/o any problems. C/o pain to back/BLE order obtained for Fentanyl [id number] @ this time since pt is NPO for possible debridement. Reyes patent to DD with cloudy/yellow urine noted. IV in place on RFA w/ABTs infusing at this time. Fall precautions in place,calls approp for help. Resting quietly at this time,will continue to monitor pt.
[2020-03-22 06:46] LABS: URINE BILIRUBIN NEGATIVE (Negative); URINE BLOOD 1+ (Negative); URINE COLOR YELLOW; URINE GLUCOSE-RANDOM* NEGATIVE (Negative); URINE KETONES NEGATIVE (Negative); URINE PROTEIN (DIPSTICK) 1+ (Negative); URINE UROBILINOGEN 0.2 E.U./dl (0.2-1.0)
[2020-03-22 06:47] LABS: URINE CLARITY HAZY; URINE LEUKOCYTES-REFLEX 3+ (Negative); URINE NITRITE-REFLEX POSITIVE (Negative)
[2020-03-22 06:56] LABS: CASTS None Seen /LPF (None Seen); MUCUS 4-6 Moderate strn/LPF (None Seen); SQUAMOUS 0-3 Few /LPF (0-3)
[2020-03-22 06:58] LABS: CRYSTALS None Seen /LPF (None Seen); URINE RBC 3-10 Few /HPF (0-2); URINE WBC-REFLEX >25 Many /HPF (0-5); WBC CLUMPS Few (None Seen)
[2020-03-22 07:34] VITALS: BP 139/74
[2020-03-22 07:43] VITALS: BP 139/74
[2020-03-22 10:04] LABS: HEMATOCRIT 37.3 % (42.0-52.0); HEMOGLOBIN 12.1 gm/dL (14.0-18.0); MCH 28.3 pg (26.0-34.0); MCHC 32.4 g/dL (28.0-37.0); MCV 87.2 fL (80.0-100.0); RBC 4.28 mil/uL (4.50-6.00); RDW 15.9 % (10.5-14.5); WBC 6.6 thou/uL (4.0-11.0)
[2020-03-22 10:14] LABS: CALCIUM 8.6 mg/dL (8.5-10.1); CREATININE 0.8 mg/dL (0.7-1.3); MAGNESIUM 1.8 mg/dL (1.8-2.4); POTASSIUM 3.9 mmol/L (3.5-5.1)
--- NOTE | 2020-03-22 11:07 | NUR ---
Assess due to notification of pt with chronic BL wounds, cellulitis, weeping. Hx PVD, CHF, chronic lymphedema. Pt states appetite is good, requires feed assist. NPO for possible procedure. Wts fluctuate significantly 205-225 lb and current wt up to 250 lb. On lasix. Once diet advanced, will order Ensure Max 1x day for extra 30g protein and low calorie source. Has vitamin D, zinc and C already ordered. Low nutrition risk with appropriate nutrition interventions in place.
--- NOTE | 2020-03-22 16:27 | NUR ---
PT ADMITTED RELATED TO FALL,BLE CELLULITIS. CM REVIEWED CHART AND SPOKE WITH CARE TEAM. CM ATTEMPTED PC TO PT'S ROOM X4 BUT PHONE WAS BUSY. PT IS FAMILIAR TO CM FROM PREVIOUS ADMISSIONS. PT RESIDES IN A HOUSE WITH HIS SISTERS AND MOTHER. PT'S SISTER IS HIS PAID CAREGIVER THROUGH [place] [employer]. IT LOOKS THOUGH PT HAS ALL NEEDED EQUIPTMENT IN THE HOME. LIFT DEVICE, HOSPITAL BED, WC, BSC. IT HAD BEEN INDICATED THAT PT HAD BEEN ON SERVICE WITH [facility]. ND ID CONSULTED. CM TO FOLLOW INDICATED WITH DC PLANNING.
[2020-03-22 16:55] VITALS: BP 131/72
--- NOTE | 2020-03-22 16:58 | NUR ---
PT ON SERVICE WITH [facility] FAXED CLINICAL UPDATE AND RECEIVED CONFIRMATION LEFT MS WITH INTAKE. DP TO FOLLOW.
--- NOTE | 2020-03-22 18:30 | NUR ---
ASSUMED PT CARE THIS AM. PT CITAL SIGNS STABLE, A&OX4. PT NPO, WENT TO A HEART HEALTHY DIET AFTER WOUND CONSULT. PT TOLERATED DIET AND MEDICATIONS WELL. PT VOICED CONCERNS OF PAIN, RESPONSIVE TO PAIN MEDS PER EMAR. PT REFUSED Q 2 TURNS AND WEDGE APPLICATION. PT VOICED NEEDS, CATHETER PATENT. WOUND CARE COMPLETED. ENDORSED TO NIGHT NURSE.
[2020-03-22 19:33] VITALS: BP 98/79
--- NOTE | 2020-03-22 20:26 | NUR ---
WOUND CARE DONE. REQUIRES 3 NURSES TO TURN PT. BOTTOM IS BLOODY, BARRIER CREAM APPLIED. PT REFUSED TURNS DURING SHIFT, ABLE TO TURN AFTER DRESSING CHANGES.
--- NOTE | 2020-03-23 06:50 | NUR ---
Assumed pt care at 1900. A/OX4,VSS.C/o pain to BLE,medicated per EMAR with relief reported. Pt agreed to be repositioned a few times during the shift. Dsgs to BLE C/D/I. Fall precautions in place,calls approp for help.
[2020-03-23 07:28] VITALS: BP 136/75
[2020-03-23 08:57] LABS: ABSOLUTE NEUTROPHILS 4.6 thou/uL (1.4-8.2); BASOPHILS 0.6 % (0.0-2.0); EOSINOPHILS 4.3 % (0.0-3.0); HEMATOCRIT 34.3 % (42.0-52.0); LYMPHOCYTES 17.6 % (24.0-44.0); MCV 87.5 fL (80.0-100.0); MONOCYTES 11.7 % (1.0-8.0); PLATELET COUNT 326 thou/uL (150-400); POLYS 65.8 % (36.0-66.0); RBC 3.92 mil/uL (4.50-6.00); RDW 15.9 % (10.5-14.5); WBC 6.9 thou/uL (4.0-11.0)
[2020-03-23 09:11] LABS: CALCIUM 8.3 mg/dL (8.5-10.1); CREATININE 0.8 mg/dL (0.7-1.3); MAGNESIUM 1.8 mg/dL (1.8-2.4); POTASSIUM 3.9 mmol/L (3.5-5.1)
--- NOTE | 2020-03-23 14:12 | NUR ---
CM FOLLOWED UP WIHT PT AT BEDSIDE THIS AFTERNOON. PT CONFIRMED HE HAD BEEN AT HOME [employer] PREPARER WITH DME AND HIS SISTER HIS CAREGIVER THROUGH [employer].WOUND CONSULTED. PT IS ON IV VAN Q12 AND IV ZOSYN Q8. CM ASKED IF PT WAS RECEPTIVE TO GOING FOR A POST ACUTE CARE STAY IF HE REQUIRED PROLONGED IV ABX AND PT INDICATED HE WOULD PREFER NOT TO IF POSSIBLE AND HOPES TO RETURN HOME ONCE MEDICALLY STABLE AND RESUME SERVICES WITH [facility]. CM TO FOLLOW INDICATED WITH DC PLANNING.
--- NOTE | 2020-03-23 14:18 | NUR ---
ASSUMED PT CARE THIS AM. PT VITAL SIGNS STABLE, A&OX4. PT REFUSES Q 2 TURNS STATING THAT THE WEDGE IS UNCOMFORTABLE. NURSE EDUCATED ON IMPORTANCE OF POSITIONING WEDGE AND Q2 TURNS. PT GIVEN BATH, CYDNEY CARE GIVEN, BARRIER CREAM PLACED. WOUND PICTURES TAKEN. WILL CONTINUE TO MONITOR.
[2020-03-23 19:32] VITALS: BP 130/76
--- NOTE | 2020-03-24 02:24 | NUR ---
ASSUMED CARE OF PT AT 1900HRS. PT AOX4 AND LETS NEEDS BE KNOWN. FALL PRECAUTION IN PLACE. RAO IN PLACE AND IS PATIENT. PAIN CONTROLLED WITH PRN PAIN MEDS. PT REFUSING TURNS. DAN IN PLACE. PT WAS ABLE TO GET COMFORTABLE AND SLEEP PART OF THE SHIFT. VSS AND NO S/S OF ACUTE DISTRESS. WILL CONTINUE TO MONITOR.
[2020-03-24 06:00] LABS: HEMATOCRIT 36.3 % (42.0-52.0); HEMOGLOBIN 11.6 gm/dL (14.0-18.0); MCH 28.1 pg (26.0-34.0); MCV 87.9 fL (80.0-100.0); RBC 4.13 mil/uL (4.50-6.00); RDW 15.8 % (10.5-14.5); WBC 7.3 thou/uL (4.0-11.0)
[2020-03-24 06:16] LABS: CALCIUM 8.4 mg/dL (8.5-10.1); POTASSIUM 3.7 mmol/L (3.5-5.1)
[2020-03-24 16:03] VITALS: BP 126/83
[2020-03-24 19:20] VITALS: BP 146/86
--- NOTE | 2020-03-25 03:10 | NUR ---
ASSUMED CARE OF PT AT 1900HRS. PT AOX4 ADN LETS NEEDS BE KNOWN. FALL PRECAUTION IN PLACE. ASSESSENT CHARTED. PT REFUSED TURNS. PT REPORTED PAIN AND WAS TREATED WITH PO PAIN MEDS. ABX TREATMENT CONTINUED. LYMPHEDEMA WRAPS ON. PT DENIED NAUSEA OR SOA. VSS AND NO S/S OF ACUTE DISTRESS. WILL CONTINUE TO MONITOR.
[2020-03-25 05:30] VITALS: BP 148/108
[2020-03-25 06:23] LABS: HEMATOCRIT 32.4 % (42.0-52.0); HEMOGLOBIN 10.5 gm/dL (14.0-18.0); MCH 28.4 pg (26.0-34.0); MCHC 32.4 g/dL (28.0-37.0); MCV 87.5 fL (80.0-100.0); RBC 3.7 mil/uL (4.50-6.00); RDW 15.7 % (10.5-14.5); WBC 6.1 thou/uL (4.0-11.0)
[2020-03-25 06:25] LABS: CALCIUM 8.2 mg/dL (8.5-10.1); CREATININE 0.9 mg/dL (0.7-1.3); POTASSIUM 3.7 mmol/L (3.5-5.1)
[2020-03-25 07:38] VITALS: BP 109/71
--- NOTE | 2020-03-25 15:01 | NUR ---
PT CONTINUES ON IV ABX VANC AND ZOSYN. PHYSICIAN INDICATED THAT PT WILL BE HERE OVER WEEKEND FOR CONTINUES TREATMENT. CM RECEIVED PC FROM ONIEL WITH [facility], SHE INDICATED PT HAD BEEN ON SERVICE WITH THEM STOCK LAYER. CM NOTIFIED [facility] THAT PT HAD BEEN ON SERVICE WITH THEM STOCK LAYER AND CLINICAL UPDATE WAS SENT TO [facility]. PT HOPES TO BE ABLE TO RETURN HOME WITH [facility] SERVICES AND HIS SISTER TO RESUME SERVICES THROUGH [employer]. CM TO FOLLOW INDICATED WITH DC PLANNING.
[2020-03-25 15:22] VITALS: BP 124/86
--- NOTE | 2020-03-25 17:03 | NUR ---
FAXED REFERRAL TO [facility] RECEIVED CONFIRMATION PT WILL NOT DC OVER WEEKEND WILL F/U WITH THEM ON SATURDAY.
--- NOTE | 2020-03-25 19:16 | NUR ---
A/O, calm and pleasant. dressing changed. complained of pain in legs, pain medication given and worked. good appetite. no n/v.
[2020-03-25 20:12] VITALS: BP 142/88
--- NOTE | 2020-03-26 04:33 | NUR ---
Pt. rested at only short intervals during the night when checked on during frequent rounds. He refuses to be turned and has been educated on the importance of this. Po pain meds given (see emar) for c/o pain to his lower legs with some relief noted. Bed alarm is on.
[2020-03-26 08:10] VITALS: BP 145/87
[2020-03-26 15:31] VITALS: BP 145/76
--- NOTE | 2020-03-26 16:33 | NUR ---
PT CARE ASSUMED 0700. A&Ox4. FORGETFUL. SISTER AT BED SITE. BED BATH GIVEN. PT WAS ABLE TO FEED HIMSELF FOR ALL MEAL TODAYWHEN SETTING UP HIS TRAYS. TOUCH CALL LIGHT IN ROOM. IV PATENT WITH NO REDNESS OR EDEMA, SALINE LOCKED. RAO IN PLACE. PT REFUSES TO DO Q2 TURNS EVEN WITH ENCOURAGEMENT. WOUND CARE PERFORMED ON BILATERAL LEGS. AIRLOSS PUMP IN PLACE. WOUND ON BOTTOM BARRIER CREAM APPLIED. IV ANTIBIOTICS GIVEN. RA. PT VERY UNPLEASANT MOST OF THE MORNING UNTIL HIS SISTER CAME INTO THE ROOM THEN VERY PLEASANT. FALL PROTOCOL IN PLACE. CALL LIGHT IN REACH. CALL LIGHT IN REACH.
[2020-03-26 20:09] VITALS: BP 132/88
--- NOTE | 2020-03-27 06:15 | NUR ---
Assumed pt care at 1900. Pt's A/OX4,VSS. C/o BLE pain 6/10 medicated per EMAR with relief reported. Pt needs assist with meals but able to grab finger foods for snacks. Declined being repositioned through the shift stating he's comfortable on his back;on a NONA mattress with heel protectors in place. BLE dressing C/D/I. Reyes patent to DD with light yellow urine draining. IV patent to LFA w/ABTs infusing. Fall precautions in place,calls approp for help.
[2020-03-27 06:29] LABS: HEMATOCRIT 33.5 % (42.0-52.0); HEMOGLOBIN 10.8 gm/dL (14.0-18.0); MCH 28.5 pg (26.0-34.0); MCHC 32.4 g/dL (28.0-37.0); MCV 88.1 fL (80.0-100.0); RBC 3.8 mil/uL (4.50-6.00); RDW 15.5 % (10.5-14.5); WBC 6.3 thou/uL (4.0-11.0)
[2020-03-27 07:00] LABS: CALCIUM 8.4 mg/dL (8.5-10.1); CREATININE 0.9 mg/dL (0.7-1.3); POTASSIUM 3.6 mmol/L (3.5-5.1)
[2020-03-27 07:52] VITALS: BP 126/71
[2020-03-27 15:33] VITALS: BP 145/97
--- NOTE | 2020-03-27 19:40 | NUR ---
ASSUMED PT CARE THIS AM. PT CITAL SIGNS STABLE, A&OX4. PT IV PATENT, FLUIDS RAN AND MEDICATIONS GIVEN WITHOUT COMPLAINT. PT RAO PATENT. PT REFUSED Q2 TURNS. WOUND CARE DONE TO LEGS, DRESSINGS CHANGED. WOUND CARE DONE TO BOTTOM, BARRIER CREAM APPLIED. PT CALLED OUT WHEN NEEDED. PT AGITATED WITH WOUND CARE, COMPLAINING THAT HE DIDNT WANT TO BE MOVED. BATH GIVEN. ENDORSED TO NIGHT NURSE.
[2020-03-27 20:18] VITALS: BP 128/78
--- NOTE | 2020-03-28 05:22 | NUR ---
ASSUMED CARE OF PT AT 1900HRS. PT AOX4 AND LETS NEEDS BE KNOWN. FALL PRECAUTION IN PLACE. RAO IN PLACE AND IS PATIENT. PT REPORTED PAIN AND WAS TREATED WITH PRN PAIN MEDS. PT DENIED TURNS. PT DENIES NAUSEA OR SOA. PT WAS ABLE TO GET COMFORTABLE AND SLEEP PART OF THE SHIFT. VSS AND NO S/S OF ACUTE DISTRESS. WILL CONTINUE TO MONITOR.
[2020-03-28 10:30] VITALS: BP 141/90
[2020-03-28 15:02] VITALS: BP 143/95
--- NOTE | 2020-03-28 16:32 | NUR ---
CM FOLLOWED UP WITH PT THIS AM ABOUT SNF FOR CONTINUED WC AND IV ABX. PT INDICATED HE WAS SCARED. CM INDICATED THAT CV WHERE PT WENT LAST DOESN'T HAVE COVID IN HOUSE AND THAT THERE ARE NUMEROUS OTHER PLACES THAT DON'T EITHER. PT INDICATED HE WAS GOING TO SPEAK TO HIS FAMILY ABOUT SNF. CM TO FOLLOW UP WITH PT.
--- NOTE | 2020-03-28 16:49 | NUR ---
ASSUMED CARE AT SHIFT CHANGE. PT A/O X 4, PLESANT AND CALM THROUGHOUT SHIFT. IV ATBX PER AUG FOR CELLULITIS. WOUND CARE COMPLETED BY OT, NO DRAINAGE, HEALING TISSUE NOTED. PER ALEJANDRA WITH ID- PT CAN BE OUT OF ISOLATION IF WOUNDS ARE NOT DRAINING. PT MEDICATED FOR PAIN THIS AFTERNOON. REPOSITIONED IN BED WHEN AGREEABLE. PT UPDATED ON POC AND PLAN FOR SKILLED UPON DC. WILL CONT TO MONITOR AND FOLLOW POC.
[2020-03-28 20:26] VITALS: BP 143/78
--- NOTE | 2020-03-29 04:08 | NUR ---
ASSUMED CARE OF PT AT 1900 HRS. PT AOX4 AAND LETS NEEDS BE KNOWN. FALL PRECAUTION IN [place]. PT IS BED BOUND. ASSESSMENT CHARTED. RAO IN PLACE AND IS PATIENT. PT REPORTED PAIN AND WAS TREATED WITH PRN PAIN MEDS. PT DENIED NAUSEA OR SOA. PT WAS ABLE TO SLEEP PART OF THE SHIFT. VSS AND NO S/S OF ACUTE DISTRESS. WILL CONTINUE TO MONITOR.
[2020-03-29 08:00] VITALS: BP 149/87
--- NOTE | 2020-03-29 12:05 | NUR ---
remains in bed .lungs are clear.adequate amount of urine in hernandez.remains afebral .dressings are dry.turned to right side and remained for only 30 mins. refused to stay off his back even after education on remaining on right side.and the importance of turning.
[2020-03-29 12:32] LABS: ABSOLUTE NEUTROPHILS 3.9 thou/uL (1.4-8.2); BASOPHILS 0.7 % (0.0-2.0); EOSINOPHILS 3.8 % (0.0-3.0); HEMATOCRIT 35.5 % (42.0-52.0); HEMOGLOBIN 11.3 gm/dL (14.0-18.0); LYMPHOCYTES 18.1 % (24.0-44.0); MCH 28.1 pg (26.0-34.0); MCHC 31.9 g/dL (28.0-37.0); MONOCYTES 11.6 % (1.0-8.0); PLATELET COUNT 344 thou/uL (150-400); POLYS 65.8 % (36.0-66.0); RBC 4.03 mil/uL (4.50-6.00); RDW 15.8 % (10.5-14.5)
[2020-03-29 12:38] LABS: CALCIUM 8.6 mg/dL (8.5-10.1); CREATININE 0.9 mg/dL (0.7-1.3); POTASSIUM 3.6 mmol/L (3.5-5.1)
--- NOTE | 2020-03-29 12:48 | NUR ---
I have reviewed the student's documentation.
--- NOTE | 2020-03-29 12:49 | NUR ---
patient remains as a high fall risk. Meghann Ovalles RN.
--- NOTE | 2020-03-29 13:05 | NUR ---
Followup: continues treatment for bilateral lower extremity wounds. No new wt to assess since 03/22. Past wts usually 205-225 lb. Has been eating 75-100% of meals and drinks 1 Ensure Max supplement per day. Remains at low nutrition risk with appropriate nutrition interventions in place
--- NOTE | 2020-03-29 16:04 | NUR ---
CM SPOKE WITH PT'S SISTER THIS AFTERNOON AND PROVIDED UPDATED THAT PT WILL NEED PROLONGED IV ABX TREATMENT VANC AND ZOSYN AND CONTINUED WC AND NOW LYMPHEDEMA. SHE INDICATED THAT SHE AND HER FAMILY WOULDN'T BE COMFORTABLE TO DO HOME INFUSION AT HOME. CM REITERATED THAT THE ALTERNATIVE WOULD BE GOING TO A FACILITY FOR SERVICES. SISTER MEGAN TO VISIT THIS EVENING AND LOOK LIST OVER WITH PT. CM TO FOLLOW UP WITH THEM TO SEE WHERE THEY WANT REFERRALS SENT FOR POSSIBLE ADMISSION.
[2020-03-29 19:43] VITALS: BP 130/84
--- NOTE | 2020-03-29 20:10 | NUR ---
Assumed pt care this am, VS stablee. Pt is very needy and would call for the smallest things through out the day. Refused q2 turns, explained the reasons why and the would on the scarum is getting worse. Pt made it clear he is aware of the consequensces and still wanted NOT to be turned. POC followed, endorsed [facility] night nurse. Wound care on the sacrum completed.
[2020-03-30 08:00] VITALS: BP 138/82
--- NOTE | 2020-03-30 16:20 | NUR ---
PT A&OX4, VSS, GENERALIZED PAIN. PAIN MEDICATION GIVEN. WOUND CARE COMPLETE. PATIENT NEEDS FOOD TRAY SET UP. RAO CATHETER INTACT. PHOTOS OF WOUNDS TAKEN. PATIENT REFUSED Q2 TURNS. NO SIGNS OF DISTRESS. WILL CONTINUE TO MONITOR.
--- NOTE | 2020-03-30 16:25 | NUR ---
CM FOLLOWED UP WITH PT THIS AM AND HE INDICATED THAT HIS SISTER SARA HAD TAKEN LIST HOME. CM CALLED AND SPOKE WITH LOLA AND SHE INDICATED THEY WERE ALL GOING TO DISCUSS. CM GOT VM ROM SARA AND THEY WANT IDEA OF DURATION OF IV ABX TREATMENT. CM NOTIFED NURSE TO SEE IF SHE CAN GET ANY IDEA FROM [facility]. CM TO FOLLOW UP WITH PTS' SISTERS EARLY TOMORROW.
[2020-03-30 16:40] VITALS: BP 144/90
--- NOTE | 2020-03-31 06:36 | NUR ---
PERIODS OF SLEEP AND WAKE FOR PT, REQUESTING PAIN MEDICAITON AND WATER. PLEASANT, DIFFICULT TO UNDERSTAND AT TIMES.
[2020-03-31 07:36] VITALS: BP 129/83
--- NOTE | 2020-03-31 08:05 | NUR ---
pharmacy voiced that the staff administrated vancomycin as ordered in emar. vancomycin trough is 14.
--- NOTE | 2020-03-31 11:56 | NUR ---
CM FOLLOWED UP WITH PT'S SISTER SARA THIS AM. SHE INDICATED THAT REFERRAL COULD BE SENT TO [facility] FOR REVIEW FOR POSSIBLE ADMISSION. CM TO FOLLOW INDICATED WITH POSSIBLE DC PLANNING.
--- NOTE | 2020-03-31 13:13 | NUR ---
FAXED REFERRAL TO [facility] RECEIVED CONFIRMATION AND LEFT MSG WITH JAMES IN ADM.
[2020-03-31 15:25] VITALS: BP 139/94
--- NOTE | 2020-03-31 16:02 | NUR ---
[facility] CAN'T ACCEPT PT ISN'T 62, [facility] CAN ACCEPT, [facility] CHOICE IS STILL REVIEWING. CM TO FOLLOW INDICATED WITH DC PLANNING.
--- NOTE | 2020-03-31 19:54 | NUR ---
A/O, calm and cooperative. no n/v. complained of pain in legs, pain medication given and worked. bed bath given.
[2020-03-31 20:34] VITALS: BP 122/87
[2020-04-01 04:59] LABS: CALCIUM 8.6 mg/dL (8.5-10.1); CREATININE 1.1 mg/dL (0.7-1.3); POTASSIUM 3.3 mmol/L (3.5-5.1)
--- NOTE | 2020-04-01 05:12 | NUR ---
ASSUMED CARE OF PT AT 1900. PT IS A/O X4 AND CURRENTLY BEDREST. PT C/O PAIN TO BLE. DRSGS ARE C/D/I. NO WOUND CARE COMPLETED THIS SHIFT. AT THIS TIME PT IS LYING IN HIS BED AND APPEARS TO BE SLEEPING. WILL CONTINUE TO MONITOR.
[2020-04-01 05:33] LABS: HEMATOCRIT 33.2 % (42.0-52.0); HEMOGLOBIN 10.6 gm/dL (14.0-18.0); MCH 28.1 pg (26.0-34.0); MCHC 31.9 g/dL (28.0-37.0); RBC 3.78 mil/uL (4.50-6.00); RDW 15.6 % (10.5-14.5); WBC 6.4 thou/uL (4.0-11.0)
[2020-04-01 07:39] VITALS: BP 142/89
--- NOTE | 2020-04-01 13:28 | NUR ---
REFERRAL WAS SENT TO [facility] PER SISTER'S REQUEST THEY CAN'T ACCEPT THEY DON'T USE [facility] IN HOUSE. [facility] INDICATED THAT THEY COULDN'T ACCEPT. [facility] IS ACCEPTING. CM CALLED AND NOTIFIED SARA. CM NOTIFIED PT. CARE TEAM INDICATED THAT PT IS MEDICALLY STABLE TO DC TO [facility] THIS DAY. CHART COPY ORDERD. ORDERS TO BE FAXED ONCE COMPLETED. [facility] TRANSPORT TO BE ARRANGED. REPORT TO BE CALLED TO .
[2020-04-01] MEDS ORDERED: PERCOCET PO (13:32)
[2020-04-01] MEDS ORDERED: MUCINEX DM ER1 EAC1 PO (13:34)
[2020-04-01] MEDS ORDERED: MIRALAX17 GM PO (13:34)
[2020-04-01] MEDS ORDERED: ENOXAPARIN40 MG/0.1 SUBQ ×2 (13:34→14:03)
[2020-04-01] MEDS ORDERED: VANCOMYCIN1.25 GM/23 IV ×2 (13:48→13:52)
[2020-04-01] MEDS ORDERED: ZOSYN 4.54.5 GM/101 IV ×2 (13:48→13:52)
--- NOTE | 2020-04-01 14:53 | NUR ---
PT DISCHARGING TODAY TO [facility] FAXED AND CONFIRMATION RECEIVED. ARRANGED TRANSPORT BY [facility] FOR [id number] TODAY. PT'S FAMILY NOTIFIED AND UNIT NOTIFIED.
--- NOTE | 2020-04-01 16:40 | NUR ---
ASSUMED PT CARE THIS AM. PT A&OX4, VITAL SIGNS STABLE. IV PATENT, MEDS GIVEN WITHOUT COMPLAINT FROM PT. URINARY CATHETER PATENT. PT REPORTED PAIN, MANAGED WITH MEDICATION. WOUND DRESSINGS ON LEGS CHANGED, NO OPEN SORES. BARRIER CREAM APPLIED TO BOTTOM, WOUND PICTURES TAKEN ON BOTTOM AND LEGS. PT DISCHARGED, SENT WITH URINARY CATHETER AND IV.
== END 2020-04-01 17:15 | DRG 602 ==
LOC: ER 16:21 → EROBS 20:10 → 4W 20:10 → EROBS 20:10 → 4W 23:17
PROVIDERS: Emergency Medicine; Hospitalist; Nurse Practitioner Family; ADMIT Hospitalist; ATTEND Hospitalist
DX: L03.116 Cellulitis of left lower limb (principal); E43 Unspecified severe protein-calorie malnutrition; L03.115 Cellulitis of right lower limb; I50.9 Heart failure, unspecified; E87.6 Hypokalemia; G20 Parkinson's disease; G89.29 Other chronic pain; I89.0 Lymphedema, not elsewhere classified; M24.542 Contracture, left hand; M24.541 Contracture, right hand; L89.150 Pressure ulcer of sacral region, unstageable; B96.89 Other specified bacterial agents as the cause of diseases classified elsewhere; Z96.642 Presence of left artificial hip joint; Z88.5 Allergy status to narcotic agent; Z99.3 Dependence on wheelchair; Z86.14 Personal history of Methicillin resistant Staphylococcus aureus infection; I87.2 Venous insufficiency (chronic) (peripheral); Z87.440 Personal history of urinary (tract) infections; Z68.35 Body mass index [BMI] 35.0-35.9, adult; Z95.820 Peripheral vascular angioplasty status with implants and grafts; Z20.828 Contact with and (suspected) exposure to other viral communicable diseases
CPT/HCPCS: 10040

== ENCOUNTER → 2020-03-21 | Outpatient (CLI) | payer OTHER ==
[~2020-03-21] MED LIST changes: +FAMOTIDINE 40 M40 M1 PO
== END ==
LOC: HYPER 14:55
PROVIDERS: ATTEND Emergency Medicine
DX: I89.0 Lymphedema, not elsewhere classified (principal); R60.0 Localized edema; E66.9 Obesity, unspecified; G20 Parkinson's disease; I87.2 Venous insufficiency (chronic) (peripheral); I73.9 Peripheral vascular disease, unspecified; Z68.34 Body mass index [BMI] 34.0-34.9, adult; Z96.649 Presence of unspecified artificial hip joint

== ENCOUNTER → 2020-04-22 | Outpatient (CLI) | payer OTHER ==
[~2020-04-22] MED LIST changes: +FAMOTIDINE 40 M40 M1 PO; +MUCINEX DM ER1 EAC1 PO; +VANCOMYCIN1.25 GM/23 IV; +ZOSYN 4.54.5 GM/101 IV
--- NOTE | ~2020-04-22 | HPC ---
[facility] [place] [address] PAIN MANAGEMENT CONSULTATION Name: PANCHO STILL Minerva Room #: REG TIANNA SinghLamont#: [id number] Admission: 04/22/20 Attend Phys: Dodie Ovalles MD Discharge: Date of : 60 Report #: [id number] THIS REPORT FOR: cc: Karolina Garrett MD, Nora P. MD Brown, N. Wayne MD ~ CC: Dodie Garrett MD DATE OF SERVICE: 04/22/2020 This is a Tele-Med visit CHIEF COMPLAINT: "I was in the hospital for a while, but I have gone out now." HISTORY: The patient is a 60-year-old gentleman who has been followed in the Pain Clinic because of chronic pain involving lower extremity, upper extremities and has Parkinson's disease. He was admitted to the hospital because of bilateral lower extremity cellulitis and volume overload. They had been watching his progress for some time. It reached a level that it was significant enough that he was admitted to the hospital for treatment. Continues to have pain in the lower extremities bilaterally. Still lives with his mother and sister. It was found after his wound clinic visit that he did have a large wound on his buttocks and drainage. He is at home at this juncture and feels like things are going reasonably well. He would like to have his medications renewed. He is unable to get to the Pain Clinic. He is sheltering as much as possible because of the COVID-19 pandemic. ALLERGIES: No known drug allergies. CURRENT MEDICATIONS: Tizanidine, zinc, OxyIR 10 mg 1 p.o. b.i.d., oxycodone 5 mg, ascorbic acid, Protonix, Flomax, Requip, vitamin B12, vitamin D, Lasix 40 mg b.i.d., potassium 20 mEq, carbidopa/levodopa ____ one p.o. t.i.d. PAIN CLINIC ASSESSMENT/PQRS: 1. The patient has pain and discomfort in lower extremities. Has had some arthritic changes in his hips bilaterally. He has some swelling and edema in the lower extremities. Has some breakdown in the buttocks area per his report. 2. The patient is not being treated for rheumatoid arthritis. 3. Last height 5 feet 10 inch. 4. Pain score, 4/10. 5. Blood thinner. The patient is not on a blood thinning medication. 6. Hypertension. The patient is not being treated for hypertension. 7. Opioids. The patient receives medication from the Pain Clinic. 8. Risk assessment tool, low for opioid use. [address] [address] PAIN MANAGEMENT CONSULTATION Name: PANCHO STILL Room #: REG [facility] Francisco.#: [id number] Admission: 04/22/20 Attend Phys: Dodie Ovalles MD Discharge: Date of : 60 Report #: [id number] 9. Functional assessment tool, 40/70. 10. Recreational drug use: The patient denies. 11. Tobacco: The patient denies. 12. Alcohol: The patient denies. REVIEW OF SYSTEMS: GENERAL: The patient's voice is clear. Speaks with slow tawana. CONSTITUTIONAL: States that overall things are stabilizing. No new changes since he left the hospital because of the infections in the lower buttocks area. HEENT: Denies any new changes. CARDIOVASCULAR: Denies new changes. RESPIRATORY: States that things are stable. GASTROINTESTINAL: Denies new changes. GENITOURINARY: Has a suprapubic catheter in place per history. MUSCULOSKELETAL: Decreased muscle strength and rigidity associated with Parkinson's disease and lower extremity wrapping of the legs. No swelling. PSYCHIATRIC: No new memory changes or complaints. ENDOCRINE: No new changes. HEMATOLOGIC: No new changes. SKIN: Indicated that there was some breakdown and possible infection in the lower buttocks areas. IMPRESSION: 1. History of Parkinson's disease. 2. Chronic lymphedema of the lower extremity. 3. Recent hospitalization because of the buttocks breakdown. 4. Left thigh pain. 5. 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 6. Urinary tract infections with indwelling suprapubic catheter. 7. History of Clostridium difficile. 8. High risk of the use of opioids secondary to chronic pain. RECOMMENDATIONS: We discussed use of his medications. The patient feels that his medications continue to be helpful. He recently was released from the hospital after a prolonged stay. It appears that his infections have been helped. He will continue to be followed up in the Pain Clinic. He will call us if he has any concerns. A script for his medications of tizanidine 2 mg 1 p.o. b.i.d., oxycodone 5 mg 1 p.o. q. 8 hours, and OxyIR 10 mg 1 p.o. b.i.d. have been rewritten and sent to the patient's pharmacy. We would like to thank you for letting us participate in his care. We hope he continues to improve. By: [id number] Dodie Ovalles MD /alexandro
== END ==
LOC: TELEPC 09:40
PROVIDERS: ATTEND Anesthesiology Pain Medicine
DX: G89.29 Other chronic pain (principal); M79.604 Pain in right leg; M79.605 Pain in left leg; I10 Essential (primary) hypertension; M79.641 Pain in right hand; M79.642 Pain in left hand; Z79.899 Other long term (current) drug therapy

== ENCOUNTER → 2020-06-22 | Outpatient (CLI) | payer OTHER ==
[~2020-06-22] MED LIST changes: +TIZANIDINE HCL 22 M1 PO
--- NOTE | 2020-06-22 13:26 | HPC ---
[facility] [place] [address] PAIN MANAGEMENT CONSULTATION Name: PANCHO STILL Minerva Room #: REG Endy Andrea#: [id number] Admission: 06/22/20 Attend Phys: Mena Barger Discharge: Date of : 60 Report #: [id number] THIS REPORT FOR: cc: Karolina Garrett MD, Nora P. MD Hocker,Mena GUZMAN ~ DATE OF SERVICE: 06/22/2020 This is a telemedicine appointment that the patient has consented for from 9:15 to 9:35 due to the coronavirus and his comorbidities. CHIEF COMPLAINT: Bilateral lower extremity pain. HISTORY OF PRESENT ILLNESS: This is a pleasant 60-year-old gentleman who speaking via the telephone for a Telemed appointment. He is at high risk for COVID and has been at home, staying safe. Today, he is reporting a pain score of 4/10, most significantly his pain is located in his lower back and lower extremities. He does report his lower extremity cellulitis has cleared, though he continues to have home health nurse come once a week to wrap his legs. He states he has been out of the hospital for the last 2 months, which he is thankful for. He reports no further wounds at this time. He feels his medications are beneficial in helping his overall pain, occasionally, not utilizing all of his OxyIR tablets in a day because he is doing well. He does have issues with constipation occasionally and does take Dulcolax that helps resolve this issue. ALLERGIES: MORPHINE. CURRENT LIST OF MEDICATIONS: Tizanidine p.r.n., OxyIR 10 mg p.r.n., oxycodone 5 mg p.r.n., vancomycin, zinc, ascorbic acid, Protonix, tamsulosin, Requip, vitamin B12, vitamin D3, Lasix, potassium and carbidopa/levodopa. PQRS: 1. He has arthritic changes in his lower extremities and back. Denies any rheumatoid arthritis. 2. Height and weight and vital signs are deferred due to a Telemed appointment. 3. Pain score 4/10. 4. Denies dizziness. He needs assistance with walking. He is in a wheelchair at all times due to his Parkinson's. He has not fallen in the last 3 months. 5. The patient is not on any blood thinners, but does take medicine for hypertension. 6. Opioid therapy is greater than 6 weeks; therefore, an opioid signed contract is on the chart. Risk assessment is low. Functional assessment is 40/70. 7. Recreational drug use, he denies. He is not a smoker and does not drink alcohol. [address] [address] PAIN MANAGEMENT CONSULTATION Name: TESSYPANCHO Room #: REG TIANNA Andrea#: [id number] Admission: 06/22/20 Attend Phys: Mena Barger Discharge: Date of : 60 Report #: [id number] According to the prescription monitoring system, he has filled last in May and he is due to fill his medications today, filling them in a timely fashion. His morphine milliequivalent is 50 MMEs. PHYSICAL EXAMINATION AND REVIEW OF SYSTEMS: He is alert and orientated gentleman, answering all my questions appropriately, slightly upbeat today reporting he had great holidays with his family at home. He denies drainage or wounds in his lower extremities. Reporting pain in his lower extremities is bothersome with edema and Mick wrap bandages. IMPRESSION: 1. History of Parkinson's disease. 2. Chronic lymphedema of his lower extremities. 3. Left thigh pain. 4. 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 5. Urinary tract infections due to suprapubic catheter. 6. History of Clostridium difficile. 7. Opioid medications under written agreement. PLAN: 1. We discussed treatment options via the telephone today. He believes his OxyIR 5 mg and 10 mg have been beneficial in helping relieve his pain, some days, not needing the full allotment that we prescribed. He would like those continued today. We will have Dr. Ovalles send this electronically for 2 months. 2. The patient does report that he takes his tizanidine very sparingly, but believes he does need a refill of his tizanidine 2 mg tablets and I will send those for 2 additional months as well. 3. We did discuss the COVID vaccine and encouraged the patient to call his neurologist and primary care doctor to see when he would be eligible to have this injection and if they feel that it is safe with his Parkinson's. 4. This Telemed was completed in collaboration with Dr. Ovalles. <ELECTRONICALLY SIGNED> By: Mena Barger 06/22/20 [id number] Mena Barger /alexandro
== END ==
LOC: TELEPC 08:22
PROVIDERS: ATTEND Clinical Nurse Specialist Adult Health
DX: M79.604 Pain in right leg (principal); M79.605 Pain in left leg; R59.0 Localized enlarged lymph nodes; F11.20 Opioid dependence, uncomplicated; N39.0 Urinary tract infection, site not specified; M79.652 Pain in left thigh; G20 Parkinson's disease; Z86.69 Personal history of other diseases of the nervous system and sense organs; Z88.8 Allergy status to other drugs, medicaments and biological substances; Z79.899 Other long term (current) drug therapy

== ENCOUNTER → 2020-08-26 | Outpatient (CLI) | payer OTHER ==
--- NOTE | 2020-08-29 07:56 | HPC ---
[facility] [place] [address] PAIN MANAGEMENT CONSULTATION Name: TESSYPANCHO Minerva [facility] [id number] Admission: 08/26/20 Attend Phys: Mena Barger Discharge: Date of : 60 Report #: [id number] THIS REPORT FOR: cc: Karolina Garrett MD, Nora P. MD Hocker, Amanda CNS ~ DATE OF SERVICE: 08/26/2020 CHIEF COMPLAINT: Bilateral lower extremity pain. This is a telemedicine appointment that I am speaking via the telephone due to the COVID virus from 10:30 to 10:45. The nurse previously called for information as well. They have consented for this Telemed appointment. HISTORY OF PRESENT ILLNESS: This is a pleasant 60-year-old gentleman who is answering all my questions appropriately on the phone today, he is reporting his pain score 4/10 in his bilateral legs. He does believe that his pain is well controlled with his oxycodone and denies some constipation, but has been taking MiraLax on a daily basis. The patient reports he has not been utilizing his muscle relaxant. He does not feel that is necessarily presently. Overall, he believes he is doing quite well on his current regimen. The patient does report a home health nurse coming for wound management on his sacral area. He thinks it is healing per their report. His sister is with him presently today helping answer some of the questions. ALLERGIES: MORPHINE. CURRENT LIST OF MEDICATIONS: OxyIR 10 mg p.r.n., oxycodone 5 mg p.r.n., vancomycin, zinc, ascorbic acid, Protonix, tamsulosin, Requip, vitamin B12, vitamin D3, Lasix, potassium, carbidopa/levodopa, MiraLax. PQRS: 1. He has arthritic changes in his lower extremity and back. Denies any rheumatoid arthritis. 2. Height, weight and vital signs are deferred due to a Telemed appointment. Pain score is 4/10. The patient denies dizziness. Per the sister's report, he is in bed, not utilizing his wheelchair currently. The patient is not on any blood thinners, but does take medicine for hypertension. Opioid therapy is greater than 6 weeks, and opioid signed contract is on the chart. Risk assessment is low. Functional assessment is 40/70. 3. Recreational drug use, he denies. He does not smoke and he does not drink alcohol. According to the prescription monitoring system, the patient is filling appropriately. He was given a script to fill on 08/19/2020. [place] [address] PAIN MANAGEMENT CONSULTATION Name: LEXIE STILLBELINDA Palma Room #: [facility] [id number] Admission: 08/26/20 Attend Phys: Mena Barger Discharge: Date of : 60 Report #: [id number] according to the CDC guidelines is 52 MMEs. REVIEW OF SYSTEMS: He is alert and oriented, answering all my questions appropriately. He reports no open lesions on his legs and the cellulitis has resolved. He does have a wound on his buttock per his report. He is upbeat today and his answering of questions. Speech is clear with his Parkinson's. IMPRESSION: 1. History of Parkinson's disease. 2. Chronic lymphedema in his lower extremities. 3. 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 4. Complicated medications utilizing scheduled opioid medications. 5. Sacral wound with home health care. PLAN: 1. We discussed treatment options via the telephone today for his Telemed appointment. He would like to continue his oxycodone that he takes for breakthrough pain medicines. He believes he does not need his muscle relaxant filled today. Scripts will be sent electronically by Dr. Ovalles to fill on 09/16/2020 of his oxycodone 10 mg and oxycodone 5 mg. 2. The patient and sister informed that they will need to come to an in-person visit in early October. We discussed that he needs a stretcher possibly to come to this appointment. I encouraged them to reach out to the primary care office for resources for transportation of stretchers or discuss this with her home health nurse that comes on a regular basis. I explained that we would need to see him or we will no longer be writing any further medications without actual [id number] physical examination and they verbalized understanding since our last face to face visit in the office was September 2019. He has been at home due to Covid-19 and his comorbidities. 3. The patient is seen today in collaboration with Dr. Iván Ovalles. Time spent in consultation reviewing clinical notes, physician reports for the Telemed appointment of 15 minutes. Time spent in preparation for appointment reviewing, prescription monitoring system, review of previous records and treatment options and reviewing current medications of 8 minutes. Time spent preparing and sending electronic prescriptions with collaborating physician, Dr. Ovalles and time spent documentation of visit and plan of treatment of 5 minutes. Total time spent 28 minutes. <ELECTRONICALLY SIGNED> By: Mena Barger 08/29/20 [id number] Mena Barger /nt
== END ==
LOC: PAIN 08-24 13:06 → TELEPC 08-24 13:09
PROVIDERS: ATTEND Clinical Nurse Specialist Adult Health
DX: R59.0 Localized enlarged lymph nodes (principal); G20 Parkinson's disease; F11.20 Opioid dependence, uncomplicated

== ENCOUNTER 2020-09-01 18:12 | Inpatient (IN) | payer OTHER ==
[~2020-09-01] VITALS: Ht 177.8 cm; Wt 133.9 kg
[2020-09-01 18:13] VITALS: BP 121/78
[2020-09-01 18:57] LABS: ABSOLUTE NEUTROPHILS 3.8 thou/uL (1.4-8.2); BASOPHILS 0.8 % (0.0-2.0); HEMATOCRIT 37.4 % (42.0-52.0); HEMOGLOBIN 12.1 gm/dL (14.0-18.0); LYMPHOCYTES 20.8 % (24.0-44.0); MCH 27.7 pg (26.0-34.0); MCHC 32.3 g/dL (28.0-37.0); MCV 85.8 fL (80.0-100.0); MONOCYTES 11.3 % (1.0-8.0); PLATELET COUNT 293 thou/uL (150-400); POLYS 64.1 % (36.0-66.0); RBC 4.36 mil/uL (4.50-6.00); RDW 14.9 % (10.5-14.5); WBC 5.9 thou/uL (4.0-11.0)
[2020-09-01 19:04] LABS: ANION GAP 5 mmol/L (7-16); BUN 7 mg/dL (7-18); CALCIUM 8.5 mg/dL (8.5-10.1); CHLORIDE 100 mmol/L (98-107); CO2 31 mmol/L (21-32); CREATININE 0.9 mg/dL (0.7-1.3); GLUCOSE 108 mg/dL (74-106); POTASSIUM 3.7 mmol/L (3.5-5.1); SODIUM 136 mmol/L (136-145)
[2020-09-01 19:10] LABS: ALBUMIN 2.7 g/dL (3.4-5.0); DIRECT BILIRUBIN < 0.1 mg/dL (<0.1-0.2); SGOT 11 U/L (15-37); SGPT 8 U/L (16-63); TOTAL BILIRUBIN 0.4 mg/dL (0.2-1.0); TOTAL PROTEIN 7.5 g/dL (6.4-8.2)
[2020-09-01 21:20] LABS: URINE BILIRUBIN NEGATIVE (Negative); URINE BLOOD 2+ (Negative); URINE CLARITY CLEAR; URINE COLOR YELLOW; URINE GLUCOSE-RANDOM* NEGATIVE (Negative); URINE KETONES NEGATIVE (Negative); URINE NITRITE-REFLEX NEGATIVE (Negative); URINE PROTEIN (DIPSTICK) 1+ (Negative); URINE SPECIFIC GRAVITY 1.015 (1.005-1.035); URINE UROBILINOGEN 0.2 E.U./dl (0.2-1.0)
[2020-09-01 21:21] LABS: URINE LEUKOCYTES-REFLEX 3+ (Negative)
[2020-09-01 21:37] LABS: CALCIUM OXALATE 0-3 Few /LPF (None Seen); SQUAMOUS None Seen /LPF (0-3)
[2020-09-01 21:38] LABS: CASTS None Seen /LPF (None Seen)
[2020-09-01 21:39] LABS: CRYSTALS None Seen /LPF (None Seen)
[2020-09-01 21:40] LABS: URINE WBC-REFLEX >25 Many /HPF (0-5)
[2020-09-01 21:44] LABS: MUCUS None Seen strn/LPF (None Seen)
[2020-09-01 23:43] VITALS: BP 107/73
[2020-09-02 00:35] VITALS: BP 144/93
--- NOTE | 2020-09-02 03:22 | NUR ---
ADMISSION ASSESSMENT COMPLTED. PT IS ALERT AND ORIENTED WITH SOME ANXIETY. PT WOUND PICS TAKEN. IVF STARTED. PAIN MEDS GIVEN FOR PAIN IN SACCRUM AND BLE. AFEBRILE.TOAL CARE. SWALLOWS MEDS OK. ROOM AIR, NO SOA OR COUGH. SOFT TOUCH CALL LIGHT WITHIN REACH.
[2020-09-02 04:06] VITALS: BP 146/91
[2020-09-02 07:56] VITALS: BP 130/87
--- NOTE | 2020-09-02 09:54 | NUR ---
CM COMPLETED THE INITIAL ASSESSMENT TO DISCUSS DC PLAN AND HOME SITUATION. PT LIVES HOME WITH MOTHER AND SISTER. PT STATED HE HAS 5 SISTER THT HELP WITH CARES. PT STTED HE IS CURRENT W/"[facility]" HH AND HAS BEEN WITH THEM FOR "A LONG TIME." PT HAS HX W/[facility], BUT DOES NOT WANT TO RTRN THERE B/C HE FELT "UNSAFE" D/T STAFF NOT RESPONDING TO CALL LIGHT AT NIGHT. PT DOES NOT AMBULATE. PT HAS W/C AND ELECTRIC W/C. PT IS PENDING THERAPY EVALS. CM TO CONT TO FOLLOW
--- NOTE | 2020-09-02 10:57 | NUR ---
ASSUMED PT CARE THIS AM. PT VSS, A&OX4. PT ABLE TO USE SOFT CALL LIGHT AND MAKES NEEDS KNOWN. CONTRACTURES NOTED IN UPPER EXTREMETIES AND NECK. PAIN REPORTED IN THE PATIENTS SACRAL AREA, GIVEN PAIN MEDS PER EMAR. TOOK ALL MEDICATIONS WITHOUT ISSUE THIS MORNING. IV PATENT, MEDS INFUSING. RAO CATHETER IN PLACE, DRAINING WELL. ON ROOM AIR. PATIENT REMAINS IN BED, FALL PRECAUTIONS IN PLACE. WOUND TO SACRAL AREA AND LOWER EXTREMETIES WRAPPED FROM NIGHT NURSE.
--- NOTE | 2020-09-02 15:39 | NUR ---
pt sister, catina, arrived to [facility] and informed cm she wants pt to go to snf for wound care. cm provided a list. catina stated she needed to discuss w/sister who is a sw, before making a decision on a facility.
--- NOTE | 2020-09-03 04:00 | NUR ---
ASSESSMENT COMPLETED. PT IS ALERT AND ORIENTED. GETS ANXIOUS AT TIMES.DRSG TO SACCRAL WOUND COMPLETED. VSS. PT IS ON ROOM AIR-SATTING OK.PT MAKES NEEDS KNOWN.
[2020-09-03 05:30] VITALS: BP 130/71
[2020-09-03 08:54] VITALS: BP 117/71
[2020-09-03 13:30] VITALS: BP 120/84
[2020-09-03 15:44] VITALS: BP 121/69
--- NOTE | 2020-09-03 20:05 | NUR ---
ASSUMED PT CARE AROUND 0715. PT ALERT X ORIENTED X4. BEDREST, ON ROOM AIR. Q X 2 TURN. PT COOPERATIVE. LBM ON 09/01/20. IV RT AC/NS RUNNING AT 100ML/HR. SACRAL WOUND DRESSING DONE. FALL PREACAUTION IN PLACE. PT'S SISTER VISITED HIME TODAY EVENING. HOURLY ROUNDING DONE. SHIFT REPORT GIVEN TO PEDRO REDMOND.
[2020-09-03 20:55] VITALS: BP 125/74
--- NOTE | 2020-09-04 04:00 | NUR ---
PT ALERT AND ORIENTED. GOOD APPETITE. DRINKS FREQUENTLY. RAO TO D/D WITH DARK YELLOW URINE.Q2HR TURS. PAIN TO LEGS, GIVEN OXYCODONE. LYMPHEDEMA WRAPS IN PLACE. NO FURTHER CONCERNS.
[2020-09-04 05:43] VITALS: BP 124/92
[2020-09-04 07:15] VITALS: BP 127/85
[2020-09-04 18:54] VITALS: BP 135/92
--- NOTE | 2020-09-04 20:21 | NUR ---
ASSUMED PT CARE AROUND 0730. PT ALERT X ORIENTED X4. ON ROOM AIR. Q X 2 XTURN. IV RT AC SALINE LOCKED. SLIGHT WHEEZING,RN LET KNOW AND HE DC'D FLUIDS INFUSING. TOWEL FOLDER SAID, HE HAD AN EPISODE OF SEIZURE AROUND 1300, CHARGE NURSE WITNESSED AND THEY SAID HE WAS FINE IN A FRACTION OF SECOND. PT SAID THIS HAPPENS SOMETIMES AND HE EXACTLY DOESN'T KNOW WHEN THE SEIZURE HAPPENED LAST TIME. RN TALKED TO PT'S SISTER ABOUT SEIZURE, SISTER SAID IT IS SOME THING NEW. RN LET KNOW. PT EATING AND DRINKING WELL. DRESSING CHANGE DONE BY RN. FALL PREACUTION IN PLACE. SHIFT REPORT GIVEN TO BEE REDMOND.
--- NOTE | 2020-09-05 04:21 | NUR ---
PT AOX4. PT REPORTS PAIN IN SACRUM AND BLE. PT RECEIVING PRN PO OXYCODONE Q6HR. PT DENIES SOB WHILE ON ROOM AIR, AUDIBLE WHEEZES NOTED. PT TOLERATING PO INTAKE OF FLUIDS AND REGULAR DIET WITHOUT ISSUE. PT WITHOUT NAUSEA OR EMESIS. PT INCONTINENT OF BOWEL, VOIDING PER RAO CATHETER. CATHETER PATENT AND FUNCTIONING PROPERLY. PT RESTING IN BED THROUGHOUT OUT SHIFT, FREQUENT REPOSITIONING ENCOURAGED. PT REPORTS NUMBNESS IN RIGHT SHOULDER. CAPILLARY REFILL INTACT IN ALL EXTREMITIES. TREMORS NOTED TO RUE. PT REFUSING WOUND CARE. LYMPHEDEMA WRAPS TO BLE REMAIN INTACT, NO DRAINAGE NOTED. PT REQUESTING TO REMOVE HEEL PROTECTORS TOWARDS END OF SHIFT, BLE ELEVATED. PT SISTER, SARA, NOTIFIED UNIT, UPDATE PROVIDED, NO CONCERNS EXPRESSED. PT ENCOURAGED TO NOTIFY STAFF FOR ALL NEEDS, CALL LIGHT WITHIN REACH, BED ALARM ON, BED LOCKED IN LOWEST POSITION, ROOM REMAINS NEAR NURSES STATION, FREQUENT MONITORING WILL CONTINUE.
[2020-09-05 08:30] VITALS: BP 130/84
--- NOTE | 2020-09-05 11:40 | NUR ---
ASSUMED PT CARE THIS AM. PT VSS, A&OX4. PATIENT ABLE TO MAKE NEEDS KNOWN. TOOK MEDS THIS AM WITHOUT ISSUE. ON ROOM AIR. IV PATENT WHEN VANCO WAS STARTED, THEN BECAME INFILTRATED. IV REMOVED, VANCO STOPPED AND WILL BE COMPLETED WHEN NEW IV PLACED. ON A LOW AIRLOSS MATTRESS. PATIENT REFUSING PRAFO BOOTS AT THIS TIME. LYMPHEDEMA WRAPS ON BILATERAL LOWER EXTREMITIES IN PLACE. TREMORS NOTED IN HANDS. PATIENT HAS CONTRACTURES IN UPPER EXTREMETIES. PATIENT REMAINS IN BED. COVID SWAB DONE TODAY. FALL PRECAUTIONS IN PLACE.
--- NOTE | 2020-09-05 13:04 | NUR ---
ON-GOING ASSESSMENT: CM REVIEWED CHART AND SPOKE WITH PATIENT TO SEE IF HE HAD REVIEWED SNF LIST WITH HIS SISTER AND WHERE HE WANTED REFERRALS TO. HE STATES TO CONTACT HIS SISTER SARA AND SEND WHERE SHE REQUESTS. CM REACHED OUT TO [facility] WHO REPORTS THEY WANT REFERRALS SENT TO [facility]. CM FAXED REFERRALS. WALDO LIASON FROM [facility] STATING THEY CANNOT ACCEPT HIM DUE TO HIS WOUNDS RIGHT NOW. CM LEFT WITH [facility] IN ADMISSIONS AT THE [facility] AND AWAITING INPUT. CM NOTIFIED BEDSIDE RN TO COLLECT COVID TEST. PT LIVES AT HOME WITH HIS MOTHER AND SISTER AND WAS IN SERVICE WITH [facility] . DUE TO PATIENTS PARKINSONS THEY HAVE A LIFT DEVICE, WHEELCHAIR, HOSPITAL BED, AND BEDSIDE COMMODE. CM AWAITING FURTHER INPUT FROM THE [facility] AT THIS TIME.
[2020-09-05 16:39] VITALS: BP 115/71
[2020-09-05 18:54] VITALS: BP 138/75
[2020-09-06 03:16] VITALS: BP 141/85
--- NOTE | 2020-09-06 04:59 | NUR ---
RECEIVED CARE OF THIS PATIENT AT 1900. PATIENT ALERT X4. C/O PAIN, MED GIVEN. REMAINS ON BEDREST. REFUSED DRESSING CHANGE ON SACRAL WOUND. HAS RAO. BLI LOWER EXT IS WRAPPED. PATIENT IS TOTAL CARE AND A FEEDER. SLEPT OFF AND ON DURING NIGHT.
[2020-09-06 07:43] VITALS: BP 135/88
--- NOTE | 2020-09-06 08:27 | NUR ---
ON-GOING ASSESSMENT: HOSEA REVIEWED CHART. CM SPOKE WITH LIASON FROM [facility] AND THEY HAVE ALSO DECLINED PATIENT DUE TO MEDICAL COMPLEXITY. HOSEA CONTACTED PTS SISTER SARA THIS AM TO NOTIFY HER AND REQUEST OTHER SNF OPTIONS. SHE STATES SHE IS GOING TO REVIEW THE LIST, TALK WITH PT AND FAMILY, AND CONTACT CM BACK. SHE ALSO REQUEST TO SPEAK TO PHYSICIAN ABOUT MEDICAL CARE. CM NOTIFIED ATTENDING.
[2020-09-06 15:58] VITALS: BP 126/64
--- NOTE | 2020-09-06 16:05 | NUR ---
on-going assessment: HOSEA SPOKE WITH SARA PATIENTS SISTER WHO ALSO REQUESTED A REFERRAL TO [facility]. HOSEA FAXED REFERRAL AND SPOKE TO [facility] IN ADMISSIONS AND SHE STATED THEY WILL REVIEW AND CONTACT HOSEA. HOSEA ALSO REACHED OUT TO [facility] AND LEFT ANOTHER WITH SANDRINE TO SEE IF THEY HAD RECEIVED. HOSEA ALSO SPOKE WITH NASRA AT [facility] WHO REPORTS THEY ARE REVIEWING. AWAITING AN ACCEPTING FACILITY AT THIS TIME.
[2020-09-06 19:12] VITALS: BP 142/69
--- NOTE | 2020-09-06 19:56 | NUR ---
PT A&OX4, VSS, C/O PAIN. PATIENT REFUSES TURNS. WOUND CARE TO COCCYX COMPLETED. LYMPH WRAPS BILAT LEGS REMAINS C/D/I. PATIENT SISTER AT BEDSIDE. NO SIGNS OF DISTRESS. AWAITING FACILITY PLACEMENT, WILL CONTINUE TO MONITOR.
[2020-09-07 03:31] VITALS: BP 115/76
--- NOTE | 2020-09-07 05:00 | NUR ---
RECIEVED CARE OF THIS PATIENT AT 1900. PATIENT ALERT AND ORIENTED X4. CONTINIES TO BE ON BEDREST. EUGENE LOWER EXT WRAPPED. REFUSED SACRAL DRESSING CHANGE. C/O PAIN, MED GIVEN. HAS RAO. TAKES EXTRA TIME. SLEPT VERY LITTLE THIS SHIFT.
[2020-09-07 08:20] VITALS: BP 133/69
--- NOTE | 2020-09-07 13:58 | NUR ---
ON-GOING ASSESSMENT: CM REVIEWED CHART. CM RECEIVED A CALL BACK FROM [facility] STATING THEY CANNOT ACCEPT PATIENT DUE TO COMPLEXITY. CM SPOKE WITH ESHA NOE FROM [facility] WHO ALSO DECLINED PATIENT DUE TO MEDICAL COMPLEXITY. SOO BROWN DECLINED DUE TO MEDICAL COMPLEXITY. CM SPOKE WITH PATIENT WELL HIS SISTER SARA ABOUT POSSIBLE OTHER OPTIONS. PTS SITSER REQUEST REFERRAL TO BE SENT TO [facility]. CM FAXECD REFERRAL AND AWAITING INPUT AT THIS TIME.
--- NOTE | 2020-09-07 14:16 | NUR ---
4FRSLPICC PLACED FOR HOME ABX
[2020-09-07 15:20] VITALS: BP 152/69
[2020-09-07 19:23] VITALS: BP 141/96
--- NOTE | 2020-09-07 19:24 | NUR ---
PT CARE ASSUMED AT 0700. A&Ox4. PT REFUSED DRESSING CHANGE TODAY DUE TO HIS SISTER BEING HERE. PICC LINE PLACED FOR LONG TERM ANTIBIOTIC TREATMENT AFTER DISCHARGE. BEDREST. RAO IN PLACE. FALL PROTOCOL IN PLACE. [facility] MATRESS IN PLACE.
--- NOTE | 2020-09-08 00:24 | NUR ---
ASSESSED AT START OF SHIFT, PT RESTING IN BED. EVENING MEDS GIVEN AND PT JAVON IT WELL. REPOSITIONED FOR COMFORT. SACRAL WOUND DRESSING CHANGED AND BARRIER CREAM APPLIED. FOLLEY CATH INTACT AND PATENT. PICC LINE IN LEFT UA ABX INFUSING. HYDROCODONE GIVEN FOR PAIN. FALL PREC IN PLACE AND CALL LIGHT AT REACH WILL CONT TO MONITOR.
[2020-09-08 08:36] VITALS: BP 135/81
--- NOTE | 2020-09-08 10:18 | NUR ---
on-going assessment: CM RECEIVED CALL FROM RALPH AT [facility] WHO REPORTS THEY CANNOT ACCEPT PT. [facility] ALSO DECLINED STATING THEY CANNOT ACCEPT PATIENT UNLESS THEY ARE 62 YEARS OR OLDER. CM DISCUSSED WITH PATIENTS SISTER SARA ABOUT OTHER OPTIONS. REFERRAL WAS SENT TO [facility] AND CM NOTIFIED LIASON. AWAITING INPUT FROM THEM. SISTER STATES SHE WILL ALSO REVIEW SNF LIST AND LOOK FOR POSSIBLE OTHER OPTIONS THEY ARE INTERSTED IN. CM WILL CONTINUE TO FOLLOW.
--- NOTE | 2020-09-08 10:25 | NUR ---
ASSUMED PT CARE THIS AM. PT VSS, A&OX4. PATIENT MEDICATED FOR PAIN IN SACRUM PRIOR TO SHIFT CHANGE, MANAGED WELL WITH MEDS GIVEN. LYPHEDEMA WRAPS TO BILATERAL LOWER EXTREMETIES IN PLACE C/D/I. RAO CATHETER IN PLACE DRAINING WELL. PATIENT CONTRACTED IN UPPER EXTREMETIES. ON ROOM AIR. FALL PRECAUTIONS ARE IN PLACE. PATIENT USING A SOFT PUSH CALL LIGHT WHEN NEEDED. TOOK MEDS WITHOUT ISSUE THIS AM. PATIENT REMAINS IN BED. IV SALINE LOCKED. HYDRATION ENCOURAGED.
[2020-09-08 16:27] VITALS: BP 131/61
[2020-09-08 23:30] VITALS: BP 136/102
[2020-09-09 00:40] VITALS: BP 144/102
--- NOTE | 2020-09-09 02:53 | NUR ---
PT AOX4 WITH INTERMITTENT FORGETFULNESS. PT REPORTS 6/10 PAIN IN BLE. PT RECEIVING PRN PO OXYCODONE Q6HR. PT DENIES SOB WHILE ON ROOM AIR. PT NOTED TO HAVE AUDIBLE WHEEZES WITH RESPIRATIONS AND INTERMITTENT CONGESTED COUGHING WITH THICK EXPECTORANT. PT TOLERATING PO INTAKE OF FLUIDS AND REGULAR DIET WITHOUT ISSUE. PT WITHOUT NAUSEA OR EMESIS. PT RESTING IN BED THROUGHOUT SHIFT, FREQUENT REPOSITIONING ENCOURAGED. PT REFUSING REPOSITIONING ASSISTANCE, LOW AIR LOSS MATTRESS REMAINS IN PLACE. PT REFUSING WOUND CARE, LYMPHEDEMA WRAPS TO BLE CLEAN, DRY AND INTACT. PT DENIES NUMBNESS AND TINGLING IN ALL EXTREMITIES. TREMORS TO RUE OBSERVED. CAPILLARY REFILL LESS THAN 3SEC IN ALL EXTREMITIES. PT ENCOURAGED TO NOTIFY STAFF FOR ALL NEEDS, CALL LIGHT WITHIN REACH, BED ALARM ON, ROOM REMAINS NEAR NURSES STATION, BED LOCKED IN LOWEST POSITION, FREQUENT MONITORING WILL CONTINUE.
[2020-09-09 03:00] VITALS: BP 158/86
[2020-09-09 08:10] VITALS: BP 149/78
[2020-09-09] MEDS ORDERED: VANCO 1.251.25 GM/25 IVPB (12:15)
--- NOTE | 2020-09-09 12:52 | NUR ---
ON-GOING ASSESSMENT: CM REVIEWED CHART AND SPOKE WITH PATIENT AND HIS SISTER SARA. PT AND SISTER ARE ARGREEABLE TO [facility]GE [facility]. CM SPOKE WITH DEANDRA BALBUENA AT THE [facility] WHO REPORTS THEY CAN ACCEPT PT TODAY AND WITH HIS IV ANBX. CHART COPY WAS ORDERED. CM FAXED NEGATIVE COVID TEST ALONG WITH DISCHARGE ORDERS TO THE FACILITY AND CONFIRMED THEY RECEIVED IT. TRANSPORTATION WAS ARRANGED VIA [facility] [phone] AND SET UP FOR BETWEEN [phone]. BEDSIDE RN WAS NOTIFIED WELL PT AND HIS SISTER. CM PROVIDED BEDSIDE RN WITH THE NUMBER FOR REPORT. PT REPORTS NO FURTHER NEEDS FROM CM AT THIS TIME.
--- NOTE | 2020-09-09 13:01 | NUR ---
Assumed pt care this am. Pt is alert & oriented x4 but forgetful at times. Pt is max assist and a feeder. Pt has sacral wound and refused to reposition. Pt has UE contractures and bilateral chronic lymphedema. Pt has hernandez cath on. Given pt antibiotic during shift. Given report to nurse at [facility]. Plan is to be lemon picker by 2pm. Pt on the bed watching tv, bed on the lowest position, side rails up, call light within reach. Will continue to monitor.
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
== END 2020-09-09 14:33 | DRG 593 ==
LOC: ER 18:12 → 4S 22:10 → EROBS 22:10 → 4S 09-02 00:21
PROVIDERS: Emergency Medicine; ADMIT Hospitalist; ATTEND Hospitalist
PROC: 05HY33Z Insertion of Infusion Device into Upper Vein, Percutaneous Approach (ICD-10-PCS; principal; 2020-09-07)
DX: L89.153 Pressure ulcer of sacral region, stage 3 (principal); N39.0 Urinary tract infection, site not specified; E44.0 Moderate protein-calorie malnutrition; Z68.41 Body mass index [BMI] 40.0-44.9, adult; Z20.822 Contact with and (suspected) exposure to COVID-19; Z96.642 Presence of left artificial hip joint; G89.29 Other chronic pain; K21.9 Gastro-esophageal reflux disease without esophagitis; I50.9 Heart failure, unspecified; G20 Parkinson's disease; L89.313 Pressure ulcer of right buttock, stage 3; R53.81 Other malaise; E11.51 Type 2 diabetes mellitus with diabetic peripheral angiopathy without gangrene; L89.323 Pressure ulcer of left buttock, stage 3; Z95.820 Peripheral vascular angioplasty status with implants and grafts; Z86.14 Personal history of Methicillin resistant Staphylococcus aureus infection; Z88.6 Allergy status to analgesic agent; Z80.1 Family history of malignant neoplasm of trachea, bronchus and lung; Z79.899 Other long term (current) drug therapy
CPT/HCPCS: 10102; 10195; 27000

== ENCOUNTER → 2020-10-21 | Outpatient (CLI) | payer OTHER ==
[~2020-10-21] MED LIST changes: +VANCO 1.251.25 GM/25 IVPB
== END ==
LOC: TELEPC 07:13
PROVIDERS: ATTEND Clinical Nurse Specialist Adult Health
DX: Z76.0 Encounter for issue of repeat prescription (principal); G20 Parkinson's disease; G25.9 Extrapyramidal and movement disorder, unspecified; I89.0 Lymphedema, not elsewhere classified; F11.20 Opioid dependence, uncomplicated; Z88.8 Allergy status to other drugs, medicaments and biological substances; Z79.899 Other long term (current) drug therapy

== ENCOUNTER 2020-11-25 10:17 | Inpatient (IN) | payer OTHER ==
[~2020-11-25] VITALS: Ht 177.8 cm; Wt 125.6 kg
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
[2020-11-25 10:18] VITALS: BP 137/82
[2020-11-25 10:51] LABS: URINE BILIRUBIN NEGATIVE (Negative); URINE BLOOD NEGATIVE (Negative); URINE CLARITY CLEAR; URINE COLOR YELLOW; URINE GLUCOSE-RANDOM* NEGATIVE (Negative); URINE KETONES NEGATIVE (Negative); URINE PROTEIN (DIPSTICK) NEGATIVE (Negative); URINE SPECIFIC GRAVITY 1.025 (1.005-1.035); URINE UROBILINOGEN 0.2 E.U./dl (0.2-1.0)
[2020-11-25 10:52] LABS: URINE LEUKOCYTES-REFLEX 1+ (Negative); URINE NITRITE-REFLEX POSITIVE (Negative)
[2020-11-25 11:01] LABS: CASTS None Seen /LPF (None Seen); MUCUS >6 Heavy strn/LPF (None Seen); SQUAMOUS 0-3 Few /LPF (0-3)
[2020-11-25 11:02] LABS: URINE RBC None Seen /HPF (NONE SEEN); URINE WBC-REFLEX 6-15 Few /HPF (0-5)
[2020-11-25 11:03] LABS: CALCIUM OXALATE 0-3 Few /LPF (None Seen)
[2020-11-25 12:06] LABS: ABSOLUTE NEUTROPHILS 3.5 thou/uL (1.4-8.2); BASOPHILS 1.2 % (0.0-2.0); EOSINOPHILS 4.7 % (0.0-3.0); HEMATOCRIT 38.5 % (42.0-52.0); HEMOGLOBIN 12.4 gm/dL (14.0-18.0); LYMPHOCYTES 21.5 % (24.0-44.0); MCH 27.2 pg (26.0-34.0); MCHC 32.3 g/dL (28.0-37.0); MCV 84.2 fL (80.0-100.0); MONOCYTES 12.1 % (1.0-8.0); PLATELET COUNT 306 thou/uL (150-400); POLYS 60.5 % (36.0-66.0); RBC 4.57 mil/uL (4.50-6.00); WBC 5.8 thou/uL (4.0-11.0)
--- NOTE | 2020-11-25 12:18 | EKG ---
[address] [place] [address] ELECTROCARDIOGRAM REPORT Name: PANCHO STILL Room #: [facility]#: [id number] Admission: 11/25/20 Attend Phys: Discharge: Date of : 60 Report #: [id number] [facility] ED Test Date: 2020-11-25 Test Time: 11:48:05 Pat Name: PANCHO STILL Department: Room: Gender: M Radio Interference Supervisor: leonel : 1960 Requested By: Sheldon Jacinto Order Number: [id number] MD: Je Bravo Measurements Intervals [place] Rate: 84 P: 32 RI: 182 QRS: 49 QRSD: 79 T: 22 QT: 364 QTc: 431 Interpretive Statements Sinus rhythm Compared to ECG 05/21/2018 14:13:30 Ventricular premature complex(es) no longer present Electronically Signed On 11-25-2020 12:18:18 CDT by Je Bravo [email or web address] <ELECTRONICALLY SIGNED> By: Je Bravo MD, [facility] 11/25/20 1218 1148 1148 Je Bravo MD, FACC /EPI
[2020-11-25 13:03] LABS: CALCIUM 8.6 mg/dL (8.5-10.1); CREATININE 0.9 mg/dL (0.7-1.3)
[2020-11-25 13:09] LABS: ALBUMIN 2.6 g/dL (3.4-5.0); TOTAL BILIRUBIN 0.4 mg/dL (0.2-1.0); TOTAL PROTEIN 7.9 g/dL (6.4-8.2)
[2020-11-25 15:01] VITALS: BP 115/72
[2020-11-25 15:23] VITALS: BP 94/67
--- NOTE | 2020-11-25 20:00 | NUR ---
PT RRIVED ON THE UNIT AROUND 1540 FROM ED. PT ALERT X ORIENTED X 4. ON ROOM AIR. IV RT FOREARM. ON REGULAR DIET. PATIENT NOTED PAIN OF 5-6, HYDROCODONE GIVEN FOR PAIN. PAIN PARTIALLY CONTROLLED, REASSESMENT NOTIFIED A PAIN OF 4.HAD BM 0N 11/23/20. ADMISSION HIST, EDUCATION AND ASSESMENTS COMPLETED. RN SPOKE TO PT'S SISTER. PT HAS PITTING EDEMA ON BOTH LOWER EXTREMITES AND IS WRAPPED FROM ER, PT REFUSED TO UNWRAP, SO PICTURES NOT TAKEN. WOUND ON THE BACK AND SACRAL AREA, PICTURES TAKEN, NOT MEASURED THE WOUNDS ARE UNMEASURABLE. WOUND CARE CONSULTED. PT IS TOTAL CARE AND SETUP FOR FEEDING. FALL PRECAUTION IN PLACE. CALL LIGHT IN KRISTOPHER. HOURLY ROUNDS DONE. 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
[2020-11-25 20:45] VITALS: BP 110/74
--- NOTE | 2020-11-26 05:03 | NUR ---
pain controlled this shift. patient encouraged fluids. patient skin is dry, cleansed with soap and water and lotion applied. patient has raw skin on the back and buttocks, no open areas note, redness noted on the buttocks cheek.skin cleansed with soap and water.patient was encouraged to turn q 2 hours but was not able to tolerate the turnings. fall precaution in place. patient in bed asleep at this time breathing regular and unlaboured.
[2020-11-26 07:50] VITALS: BP 117/75
[2020-11-26 15:25] VITALS: BP 116/66
--- NOTE | 2020-11-26 16:34 | NUR ---
Received awake on bed. Due medications given as prescribed, able to swallow mweds w/o difficulty. On room air. Vital signs stable. On MS, not on telemetry; no complains and signs of chest pain, crushing sensation and heaviness. Assisted in ADLs. On regular diet- assisted in eating and drinking; meal set up; no nausea, no vomiting and no abdominal pain noted. Incontinent of bowel, checked regularly and changed as needed. With hernandez in place; draining well; output measured and recorded accordingly. With SL at R FA- on IV antibiotics. Falls bundle in place. With bilat leg wound dressing- pt seen and examined by Dr Coronado this AM; wounds on his back checked as well; wound photo taken; dressing changed; bed bath given. Pt turned regularly on his sides; may refuse at times. Complained of pain, due PRN pain meds given as prescribed. Verified with pharmacist Yemi re: pt's documented allergy to morphine- as per pharmacist, med given on prev hospitalizations w/o adverse reactions; pt's sister Constanza called and verified this, she said occassionally has headache when morphine was given, unsure if it was caused by med- Dr Spivey informed re: this; adjusted PO pain meds; to continue Morphine. Pt visited by his sister today. To continue monitoring patient.
[2020-11-26 19:52] VITALS: BP 126/85
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
--- NOTE | 2020-11-27 07:22 | NUR ---
pain controlled this shift. patient ble rayo wraps are c/d/i. cleansed entire back, buttocks and thigh with Ns, pat dried and applied barrier cream, patient postioned this shift as he could torelate.urin is yellow wihh no odor. patient encouraged fluids.fall precaution in place. patient in bed asleep at this time breathing regular and unlaboured.
--- NOTE | 2020-11-27 07:47 | HC ---
[facility] [place] [address] CONSULTATION Name: PANCHO STILL Room #: 463-P ADM IN M.R.#: [id number] Admission: 11/25/20 Attend Phys: Ezio Spivey Discharge: Date of : 60 Report #: [id number] THIS REPORT FOR: cc: Karolina Garrett MD, Nora P. MD Jetmore, Allen B. MD ~ DOC #: [id number] Jose Coronado MD DATE OF SERVICE: 11/26/2020 WOUND CARE CONSULTATION NOTE LOCATION: [facility]. REASON FOR CONSULTATION: Pain and inflammation of moisture-associated dermatitis of back causing patient discomfort. HISTORY OF PRESENT ILLNESS: The patient is well known to the wound care service from previous admissions. He has chronic immobility secondary to Parkinson's. He has chronic lymphedema of the lower extremities with chronic compression therapy. He is admitted for extensive inflammation of his back, which is causing him pain and discomfort. The patient has been weaker than usual. The patient complains of some sore wounds on his buttocks. He has been very uncomfortable. The patient lives at home and his family take care of him, but has been having difficulty taking care of him. PAST MEDICAL HISTORY: Bilateral lower extremity lymphedema, immobility, Parkinson's disease, history of closed head injury, protein-calorie malnutrition, albumin 2.6, peripheral vascular disease of lower extremities with standing, history of urinary tract infection. PAST SURGICAL HISTORY: Lower extremity stents. ALLERGIES: MORPHINE recorded in the chart. LABORATORY DATA: White blood count 5.8, hemoglobin 12.4, hematocrit 38.5, albumin 2.6. PHYSICAL EXAMINATION: GENERAL: Shows a chronically ill-appearing gentleman appearing his age of 60. He is alert, pleasant, and conversant. HEENT: Mucous membranes are moist. The patient is mildly obese, chronically immobile. LUNGS: Respirations are unlabored. ABDOMEN: Obese. Examination of lower extremities shows they both have compression wraps. These are removed. The patient has some chronic stasis [address] [address] CONSULTATION Name: PANCHO STILL Room #: 463-P [facility] IN M.R.#: [id number] Admission: 11/25/20 Attend Phys: Ezio Spivey Discharge: Date of : 60 Report #: [id number] dermatitis of the lower extremities with chronic lymphedema. Slight break in the skin with removal of the dressing. No true open wounds of the lower extremities in the setting of chronic lymphedema with compression. Examination of the patient's back shows moisture-associated dermatitis involving the entire area of the back, buttocks, and posterior upper thighs. Stage 2 pressure ulceration of both buttocks, which is minor and the areas of moisture-associated dermatitis. There is heavy desquamation and some foul odor of the skin in the areas of the back, buttocks, and posterior thighs secondary to excess moisture stasis and dermatitis. IMPRESSION: 1. Obesity. 2. Parkinson's disease with chronic immobility. 3. Lymphedema of lower extremities. 4. Severe protein calorie malnutrition, albumin 2.6. 5. Peripheral vascular disease. 6. Moisture associated dermatitis of large area of back, buttocks, posterior thighs. 7. Stage 2 pressure ulcers of right and left buttock. PLAN: For his legs moisturizing cream, Xeroform over small open areas, Kerlix 2-layer Mick wrap to be changed every other day to the area of his back, instructed the nurses to cleanse the entire area of the back, buttocks, and posterior thighs with wound cleanser and gentle abrasion with 4 x 4 gauze to remove excess skin and slough. They will then apply barrier cream to the entire area of the back, buttocks, posterior thighs. This will be done twice a day with change of the absorbent tucks under pads. The patient repositioning. Wound care team will follow. MD ZACHARY Riggs/LENA <ELECTRONICALLY SIGNED> By: Jose Coronado MD 11/27/20 0747 [id number] Jose Coronado MD /nt
[2020-11-27 08:43] VITALS: BP 129/89
--- NOTE | 2020-11-27 16:38 | NUR ---
Assumed pt care this am, bed bath given and treatment of the back , buttocks and posterior thigh given as per wound care orders. Pt is not able to repositions self, requires 3 person assists. Compression wraps in place on BLE, wound care scheduled for tomorrow. Pain is managed with medication, wants more MD informed. Generalized edema is evident. Pt is a total care, frequenbt round done through out the shift. POC followed.
[2020-11-27 20:15] VITALS: BP 132/98
--- NOTE | 2020-11-28 03:03 | NUR ---
ASSUMED CARE OF PT AT SHIFT CHANGE. PT IS AOX3 AND LETS NEEDS BE KNOWN. FALL PRECAUTION IN PLACE. RAO IN PLACE AND PATIENT. PT REPORTED BACK PAIN AND PRNS WERE PROVIDED. ASSESSMENT CHARTED. PT DENIED NAUSEA OR SOA. PT REFUSED TURNS AT TIMES DUE TO PAIN. PT WAS ABLE TO GET COMFORTABLE AND SLEEP PART OF THE SHIFT. VSS AND NO S/S OF ACUTE DISTRESS. WILL CONTINUE TO MONITOR.
[2020-11-28 05:05] LABS: HEMATOCRIT 34.2 % (42.0-52.0); MCH 27.3 pg (26.0-34.0); MCHC 32.2 g/dL (28.0-37.0); MCV 84.7 fL (80.0-100.0); RBC 4.04 mil/uL (4.50-6.00); RDW 16.2 % (10.5-14.5); WBC 5.6 thou/uL (4.0-11.0)
[2020-11-28 05:26] LABS: CALCIUM 8.1 mg/dL (8.5-10.1); CREATININE 0.8 mg/dL (0.7-1.3); POTASSIUM 3.7 mmol/L (3.5-5.1)
[2020-11-28 07:48] VITALS: BP 142/82
--- NOTE | 2020-11-28 09:47 | NUR ---
PT ADMITTED RELATED TO ABDOMINAL PAIN,UTI. CM REVEIWED CHART AND SPOKE WITH CARE TEAM. CM MET WITH PT AT BEDSIDE THIS DAY. PT IS FAMILIAR TO CM FROM PREVIOUS ADMISSIONS. PT INDICATED HE RESIDES IN A HOUSE WITH HIS MOTHER AND SISTER. PT INDICATED HE HAD A MANUAL WC AND AN ELECTRIC WC FOR HOME USE. 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 PT INDICATED HE HAS A LIFT DEVICE BUT THAT IT DOESN'T WORK WELL. PT CONFIRMED THAT HE HAD GONE SKILLED TO [facility] IN AUGUST BUT THAT HE DOESN'T WISH TO RETURN THERE. PT IS POTENTIALLY RECEPTIVE TO POST ACUTE CARE STAY IF RECOMMENDED UPON DC. CM PROVIDED SNF LIST. PT IS ON IV CEFEPIME AND CLINDYCIN AND WC FOLLOWING. PT HAD [facility] IN THE PAST AND INDICATED THAT HE MIGHT BE LOOKING TO SWITCH HE ISN'T THRILLED WITH THEM.
--- NOTE | 2020-11-28 10:29 | NUR ---
ASSUMED CARE OF PT AT 0700 HIS MORNING. PT WAS ADMITTED FOR CELLULITIS AND EDEMA. PT HAS LEGS ELEVATED AMD BILAT WRAPS C/I/D. IV IN RIGHT FA, ASSESSENTS NOTED IN CHARTS OHERWISE UNREMARKABLE. CALL LIGHT AND OTHER NEEDS ARE WITHIN REACH. MEDS AND TX GIVEN NEEDED AND SCHEDULED.
[2020-11-28 15:20] VITALS: BP 118/78
[2020-11-28 20:07] VITALS: BP 136/95
--- NOTE | 2020-11-29 06:31 | NUR ---
PATIENT BACK/SACRAL/GLUTEAL WOUND, CLEANSED WITH NS, APPLIED BARRIER CREAM AND LOTA. BLE WOUNDS ARE C/D/I. FALL PRECAUTION IN PLACE. PATIENT IN BED ASLEEP AT THIS TIME BREATHING REGULAR AND UNLABOURED.
--- NOTE | 2020-11-29 15:21 | NUR ---
CM FOLLOWED UP WITH PT AT BEDSIDE THIS DAY AND ASKED IF PT AND DPOA SISTER LOLA HAD REVIEWED SNF LIST FOR POSSIBLE PLACEMENT OPTIONS HE INDICATED THAT THEY HADN'T YET. CM INDICATED THAT WE NEED TO LOOK FOR PLACEMENT AT PT WILL NEED PROLONGED IV ABX UPON DC AND HE MAY BE MEDICALLY STABLE TO DC SOON A TOMORROW PER THE CARE TEAM. HE INDICATED HE WOULD LOOK LIST OVER. CM FOLLOWING REGARDING DC PLANNING.
[2020-11-29 17:30] VITALS: BP 140/91
[2020-11-29 21:19] VITALS: BP 117/80
--- NOTE | 2020-11-30 06:00 | NUR ---
Pt. rested quietly at intervals during the night when checked on during frequent rounds. Pt. medicated for c/o pain (see emar) with some relief noted. Pt. refused to be turned during the shift. Bed alarm is on.
[2020-11-30 07:35] VITALS: BP 129/86
--- NOTE | 2020-11-30 07:48 | NUR ---
ASSUMED PT CARE YESTERDAY AT 0700. PT IS BEDREST AND IS A/OX4 AND IS PARAPALEGIC. PT HAS SEVERAL WOUNDS ON HIS BUTTOCKS AND SACRAL AREA. PREPPED WOUNDS WITH AMMONIA CREAM AND ZGARD WITH FOAM DRESSING ON LEFT ULCERATION. BOTH LOWER EXTREMETIES ARE WRAPPED WITH KERLEX AND YOUSUF WRAP, EVERY OTHER DAY CHANGES. PT CALLS OUT FOR MINOR NEEDS VERY OFTEN AND HAVE TO SET LIMITS WITH HIM. ASSESSMENTS WERE CHARTED AND OTHERWISE UNREMARKABLE. CALL LIGHT AND OTHER NEEDS ARE PLACED WITHIN REACH. MEDS AND TX GIVEN NEEDED AND SCHEDULED.
[2020-11-30 15:07] VITALS: BP 148/106
--- NOTE | 2020-11-30 18:32 | NUR ---
Assumed pt care at 7am.Assessment completed.vss.Pt in bed most of the times today.Repositioned q2h for comfort.Assisted pt with feeding at [facility].Good appetite noted.Pt c/o back and buttom pain.Oral med given with relief.Dr Krueger here,wanted cm assisted with dc planning.Family here later this evening, updates given.Pt in bed at present resting and watching tv.Will continue to monitor.
[2020-11-30 21:45] VITALS: BP 101/64
--- NOTE | 2020-12-01 06:38 | NUR ---
PATIENT AOX4 MAKES NEEDS KNOWN.PATIENT REFUSED TO BE TURNED. PATIENT REFUSED WOUND CARE.PAIN CONTROLLED THIS SHIFT.BLE ELEVATED. FALL PRECAUTION IN PLACE. PATIENT IN BED ASLEEP AT THIS TIME BREATHING REGULAR AND UNLABOURED.
[2020-12-01 07:57] VITALS: BP 110/78
[2020-12-01 11:47] LABS: URINE BILIRUBIN NEGATIVE (Negative); URINE BLOOD 1+ (Negative); URINE CLARITY CLEAR; URINE COLOR YELLOW; URINE GLUCOSE-RANDOM* NEGATIVE (Negative); URINE KETONES NEGATIVE (Negative); URINE LEUKOCYTES-REFLEX TRACE (Negative); URINE NITRITE-REFLEX NEGATIVE (Negative); URINE PROTEIN (DIPSTICK) 1+ (Negative); URINE SPECIFIC GRAVITY 1.025 (1.005-1.035); URINE UROBILINOGEN 0.2 E.U./dl (0.2-1.0)
[2020-12-01 12:35] LABS: HYALINE CASTS 0-3 Few /LPF (None Seen); SQUAMOUS 0-3 Few /LPF (0-3); URINE RBC 3-10 Few /HPF (NONE SEEN)
[2020-12-01 12:36] LABS: BACTERIA-REFLEX 1-9 Few /HPF (None Seen)
[2020-12-01 12:38] LABS: CALCIUM OXALATE 0-3 Few /LPF (None Seen)
--- NOTE | 2020-12-01 16:02 | NUR ---
CARE TEAM INDICATED THAT UA WAS DONE THIS AM. AWAITING CULTURES AND SENSITIVITIES TO DETERMINE IF PT CAN GO HOME ON ORAL ABX OR IF WILL NEED IV ABX AND FACILITY PLACEMENT. CM FOLLOWING.
[2020-12-01 16:35] VITALS: BP 124/81
--- NOTE | 2020-12-01 16:46 | NUR ---
Assumed pt care at 7am.Pt in bed sleeping at the start of shift but arousable. Pt woke up around breakfast.Am meds given with breakfast and well tolerated. Dr Shin and Evans here,order noted.Urine obtained and sent to lab as ordered. Pt requested for pain med later this afternoon,it was given with relief. Repositioned q2h in bed for comfort.Library Attendant fed pt at [facility].Pt will possibly dc home in am with home health or to snf with iv antibiotic.No verbal c/o at present.Will continue to monitor.
[2020-12-01 22:08] VITALS: BP 121/93
--- NOTE | 2020-12-02 07:39 | NUR ---
Assumed pt care at 1900. A/OX4,VSS. C/o pain on buttocks/ BLE, medicated per EMAR with relief reported. Pt is amx assist with cares, can feed self at times with set-up. Reyes patent to DD, refused wound care as well as to be repositioned. Lymphedema wraps in place to BLE C/D/I. Fall precautions in place,calls approp for help.
[2020-12-02 08:00] VITALS: BP 138/89
--- NOTE | 2020-12-02 14:15 | NUR ---
PT AND SISTER WANTING SKILLED. CM FAXED REFERRALS TO [facility], [facility], AND [facility] PER THEIR TREQUEST. [facility] ONLY ONE WHO CAN ACCEPT. TRANSPORT VIA [facility] SET UP BETWEEN [id number]. CHART COPY MADE. ORDERES TO BE FAXED ONCE COMPLETED... NEVERMIND PATIENT IS NOW WANTING TO RETURN HOME AND RESUME SERVICES WITH [facility]. PT'S SISTER IS AWARE AND AGREEABLE WITH DC HOME THIS DAY. CM TO ARRANGE [employer] [facility] TRANSPORT AND TELL LOLA OF TIME. CM NOTIFIED MARIAN AT [facility] TO CANCEL ADMISSION.
[2020-12-02] MEDS ORDERED: AMOX TR-K CLV1 EAC4 PO (14:30)
[2020-12-02 14:43] VITALS: BP 138/89
--- NOTE | 2020-12-02 15:01 | NUR ---
TRANSPORTATION ARRANGED [place] PATIENT'S HOME AT [address] [place] [address] THROUGH [employer] [facility] BY RAY/AGENT, CONFIRMATION [id number]. THERE IS A 3 HOUR WINDOW FROM 3:00-6:00 BUT STATED THE PATIENT IS READY FOR DISCHARGE. WILL CALL TO CONFIRM A TIME WITH NON-EMERGENCY [facility]. [phone] [facility] P ; FAX [phone]
[2020-12-02 15:16] VITALS: BP 138/89
--- NOTE | 2020-12-02 16:36 | NUR ---
Assumed pt care at 7am.Pt in bed resting .Assessment completed.vss.Pt tolerated meds and diet.Fed by gasoline finisher at [employer].Sister here early this am and requested for pt to dc to snf due to extensive care which cannot be met by family.environmental compliance manager arranged for transport and chart copy done.Before pt pickup by trans[port at 1600,family called cm back and change their mind in keeping pt at home instead of snf.Pt refused wound care and picture taking. Dc summary compile and reviewed with pt.Family took all pt personal belongings.Oral pain med given prior to dc home per non medical ambulance at 1621.
== END 2020-12-02 16:20 | disposition home health service (06) | DRG 592 ==
LOC: ER 10:17 → EROBS 14:19 → 4W 14:19
PROVIDERS: Emergency Medicine; Hospitalist; Internal Medicine; Physician Assistant; ADMIT Hospitalist; ATTEND Hospitalist
DX: L89.312 Pressure ulcer of right buttock, stage 2 (principal); E43 Unspecified severe protein-calorie malnutrition; J18.9 Pneumonia, unspecified organism; T83.511A Infection and inflammatory reaction due to indwelling urethral catheter, initial encounter; L03.317 Cellulitis of buttock; I42.9 Cardiomyopathy, unspecified; G93.40 Encephalopathy, unspecified; N39.0 Urinary tract infection, site not specified; L89.322 Pressure ulcer of left buttock, stage 2; Z20.822 Contact with and (suspected) exposure to COVID-19; Z96.642 Presence of left artificial hip joint; I73.9 Peripheral vascular disease, unspecified; S31.809A Unspecified open wound of unspecified buttock, initial encounter; E66.9 Obesity, unspecified; G20 Parkinson's disease; I89.0 Lymphedema, not elsewhere classified; G83.9 Paralytic syndrome, unspecified; N31.9 Neuromuscular dysfunction of bladder, unspecified; K21.9 Gastro-esophageal reflux disease without esophagitis; I50.9 Heart failure, unspecified; R53.81 Other malaise; Y83.8 Other surgical procedures as the cause of abnormal reaction of the patient, or of later complication, without mention of misadventure at the time of the procedure; G89.29 Other chronic pain; Z87.81 Personal history of (healed) traumatic fracture; Z86.14 Personal history of Methicillin resistant Staphylococcus aureus infection; Z88.6 Allergy status to analgesic agent; X58.XXXA Exposure to other specified factors, initial encounter; Y93.89 Activity, other specified; Y92.89 Other specified places as the place of occurrence of the external cause; Y99.8 Other external cause status; Z95.820 Peripheral vascular angioplasty status with implants and grafts; Z68.39 Body mass index [BMI] 39.0-39.9, adult
CPT/HCPCS: 10045; 10047

== ENCOUNTER 2020-12-28 07:12 | Inpatient (IN) | payer OTHER ==
[~2020-12-28] VITALS: Ht 175.3 cm; Wt 127.5 kg
--- NOTE | ~2020-12-28 | EMS ---
[place] [address] EMS Patient Care Report Name: PANCHO STILL Room #: 450-P ADM IN M.R.#: [id number] Admission: 12/28/20 Attend Phys: Charan Hale MD Discharge: Date of : 60 Report #: [id number] THIS REPORT FOR: //name// Report Transmitted: 12/30/2020 08:50 EMS Care Summary [place], [place]/[facility] Incident [id number] @ 12/28/2020 06:33 Incident [address] [place] [address] Patient PANCHO STILL Male, 60 Years 1960 Patient Address [address] [place] [address] Patient History Other,Parkinson's Disease,Gastro-Esophageal Reflux Disease (GERD),Urinary Tract Infection (UTI),Sepsis,Pressure Ulcer,Restless Leg Syndrome,Enlarged prostate, Patient Allergies Morphine, Patient Medications Ropinirole, Potassium, Tamsulosin, Famotidine, Oxycodone, Zinc, Pantoprazole, Sinemet, Furosemide, Chief Complaint loose stool Disposition Transported No Lights/[place] Dispatch Reason Headache Transported To [facility] Narrative Arrived to find pt in hospital bed in basement room. Pt is bed bound. Pt complains of loose stool for the past 3 days and neck pain [place] [address] EMS Patient Care Report Name: PANCHO STILL Room #: [facility]-P ADM IN [facility].#: [id number] Admission: 12/28/20 Attend Phys: Charan Hale MD Discharge: Date of : 60 Report #: [id number] has long history of C-diff. Pt requests [facility] however they are High Volume so pt agrees to go [facility]. Lift assist ordered. P36 arrives and pt carried on alaina core baker up stairs to backyard and placed on cot. Pt secured to cot with cot straps. Pt placed in back of unit and placed in surgical mask. Pt transported without issue. Care to RN. Initial Vitals @06:57P: 89,BP: 119/75,CO: 2,SpO2: 97, @06:56P: 90,R: 16,BP: 121/83,Pain: 4/10,GCS: 15,CO: 1,SpO2: 97,Revised Trauma: 12, Assessments @06:45MENTAL:No Abnormalities,SKIN:No Abnormalities,HEENT:Head/Face: No Abnormalities,Eyes: No Abnormalities,Neck/Airway: No Abnormalities,LUNG SOUNDS:General: Diarrhea,Left Upper: No Abnormalities,Right Upper: No Abnormalities,Left Lower: No Abnormalities,Right Lower: No Abnormalities,ABDOMEN:General: Diarrhea,Left Upper: No Abnormalities,Right Upper: No Abnormalities,Left Lower: No Abnormalities,Right Lower: No Abnormalities,PELVIS//GI:Incontinence,EXTREMITIES:Left Arm: Weakness,Right Arm: Weakness,Left Leg: Weakness,Right Leg: Weakness,PULSE:NEURO:No Abnormalities, Impression Diarrhea Procedures @06:45ALS AssessmentResponse: UnchangedSucceeded Timeline 06:32,Call Received 06:32,Dispatch Notified 06:33,Dispatched 06:35,En Route 06:39,On Scene 06:44,At Patient 06:45,ALS Assessment,Response: UnchangedSucceeded, 06:56,BP: 121/83 M,PULSE: 90,RR: 16 R,SPO2: 97 Ox,ETCO2: ,BG: ,PAIN: 4,GCS: 15, 06:57,BP: 119/75 M,PULSE: 89,RR: R,SPO2: 97 Ox,ETCO2: ,BG: ,PAIN: ,GCS: , 06:59,Depart Scene 07:08,At Destination 07:18,Call Closed Disclaimer v1.1 Copyright 2020 [employer] This EMS Care Summary contains data elements from the applicable legal record (which may be displayed differently). It is [place] [address] EMS Patient Care Report Name: TESSYPANCHO Minerva Room #: 450-P [facility] IN .R.#: [id number] Admission: 12/28/20 Attend Phys: Charan Hale MD Discharge: Date of : 60 Report #: [id number] information for the following purposes: continuity of care, clinical quality, and state data reporting. The complete legal record is available to ED staff and administrators of the receiving hospital in [facility]'s Patient Tracker. All data is provided "as is."
[2020-12-28 07:12] VITALS: BP 138/92
[~2020-12-28 07:12] MED LIST changes: +AMOX TR-K CLV1 EAC4 PO; +CARBIDOPA-LEVO1 EAC7 PO; -CARBIDOPA-LEVO1 EAC9 PO
[2020-12-28 07:39] LABS: URINE BILIRUBIN NEGATIVE (Negative); URINE BLOOD 1+ (Negative); URINE CLARITY CLOUDY; URINE COLOR YELLOW; URINE GLUCOSE-RANDOM* NEGATIVE (Negative); URINE KETONES NEGATIVE (Negative); URINE NITRITE-REFLEX NEGATIVE (Negative); URINE PROTEIN (DIPSTICK) TRACE (Negative); URINE UROBILINOGEN 0.2 E.U./dl (0.2-1.0)
[2020-12-28 07:41] LABS: ABSOLUTE NEUTROPHILS 4.2 thou/uL (1.4-8.2); BASOPHILS 0.9 % (0.0-2.0); EOSINOPHILS 5.2 % (0.0-3.0); HEMATOCRIT 37.6 % (42.0-52.0); HEMOGLOBIN 12.1 gm/dL (14.0-18.0); LYMPHOCYTES 20.4 % (24.0-44.0); MCH 27.2 pg (26.0-34.0); MCHC 32.1 g/dL (28.0-37.0); MCV 84.7 fL (80.0-100.0); MONOCYTES 11.2 % (1.0-8.0); PLATELET COUNT 408 thou/uL (150-400); POLYS 62.3 % (36.0-66.0); RBC 4.43 mil/uL (4.50-6.00); RDW 16.4 % (10.5-14.5); WBC 6.7 thou/uL (4.0-11.0)
[2020-12-28 07:42] LABS: URINE LEUKOCYTES-REFLEX 3+ (Negative)
[2020-12-28 07:45] LABS: ANION GAP 8 mmol/L (7-16); BUN 6 mg/dL (7-18); CALCIUM 8.5 mg/dL (8.5-10.1); CHLORIDE 103 mmol/L (98-107); CO2 28 mmol/L (21-32); GLUCOSE 103 mg/dL (74-106); POTASSIUM 3.8 mmol/L (3.5-5.1); SODIUM 139 mmol/L (136-145)
[2020-12-28 07:53] LABS: ALBUMIN 2.6 g/dL (3.4-5.0); DIRECT BILIRUBIN < 0.1 mg/dL (<0.1-0.2); SGOT 13 U/L (15-37); SGPT 12 U/L (16-63); TOTAL BILIRUBIN 0.3 mg/dL (0.2-1.0); TOTAL PROTEIN 7.9 g/dL (6.4-8.2)
[2020-12-28 08:01] LABS: CASTS None Seen /LPF (None Seen)
[2020-12-28 08:02] LABS: CRYSTALS None Seen /LPF (None Seen); MUCUS 0-3 Light strn/LPF (None Seen); SQUAMOUS None Seen /LPF (0-3)
[2020-12-28 08:04] LABS: URINE WBC-REFLEX >25 Many /HPF (0-5)
[2020-12-28 08:05] LABS: BACTERIA-REFLEX >30 Many /HPF (None Seen); URINE RBC 1-2 Rare /HPF (NONE SEEN)
[2020-12-28 10:57] VITALS: BP 138/92
[2020-12-28 11:20] VITALS: BP 123/54
--- NOTE | 2020-12-28 11:26 | NUR ---
OMAR STILL ([facility]) [phone]
--- NOTE | 2020-12-28 13:40 | NUR ---
PT ADMIT TO 4W @ APPROX 1200. PT HAS SCATTERED WOUNDS THAT WILL BE PHOTOGRAPHED. BILATERAL LOWER EXTREMITES WRAPPED IN YOUSUF WRAPS, THESE WILL BE LEFT FOR WOUND CARE TO EVALUATE. MIDLINE PLACED IN RIGHT UPPER BY IV ACCESS TEAM. BLOOD AND URINE CULTURES SENT TO LAB. PASSED SWALLOW STUDY BY SPEECH THERAPY. PT HAS BEEN THOUROUGHLY UPDATED AND EDUCATED ON CONDITION AND POC. PT SLOWLY PROGRESSING TOWARDS POC.
[2020-12-28 15:55] VITALS: BP 134/84
--- NOTE | 2020-12-28 16:26 | NUR ---
ASSUME PT CARE FROM [facility] AMAYA 1600. NO DIET ORDER PUT IN, PAGE AT 16:25. WILL FOLLOW ORDERS AND MONITOR PATIENTS' SAFETY.
--- NOTE | 2020-12-28 18:38 | NUR ---
ACTIVE WOUNDS SUSPECTED AFTER PT ADDMISSION. SKIN TEARS ON LEFT BOTTOM AND MID OF BOTTOM. CLEANSED WITH NS AND APPLIED ON 4*4 FOAM DRESSING FOR EACH TEAR SITE. ABNORMAL SKIN CHANGED OBSERVED BETWEEN PT'S LEG AND EXTERNAL SIDE OF THE LEFT THIGH. EDEMA ON BOTH LOWER LEGS AND DRESSING COVERED. NEED FURTHER ASSESSMENT FOR WOUNDS ON LEGS. DRY SKIN AND Z-GAURD CREAM APPLIED ON THE BACK. WOUND CARE PLAN IS ACTIVE. WILL PASS ON TO SUGGEST WOUND CONSULT FOR PATIENT.
[2020-12-28 19:26] VITALS: BP 118/79
--- NOTE | 2020-12-29 04:19 | NUR ---
PT HAS NO DIET ORDERS.CALLED BLOCK OPERATOR ON DUTY,ORDER NOTED TO LEAVE PT NPO UNTIL SEEN BY PHYSICIAN THIS AM.BLE EDEMA NOTED.WRAPPED WITH ZEROFAOM,KERLIX AND YOUSUF WRAP.BLE ELEVATED WITH A PILLOW.DRSG TO WOUND ON HIS BUTTOCK,COMPLETE BY AM NURSE.BLE SKIN DRY AND FLAKY.ARO CATH IN PLACE.CALL LIGHT WITHIN REACH.
[2020-12-29 05:35] LABS: HEMATOCRIT 34.3 % (42.0-52.0); MCH 26.9 pg (26.0-34.0); MCHC 32.1 g/dL (28.0-37.0); MCV 83.9 fL (80.0-100.0); RBC 4.08 mil/uL (4.50-6.00); RDW 16.2 % (10.5-14.5); WBC 5.6 thou/uL (4.0-11.0)
[2020-12-29 06:13] LABS: CALCIUM 8.1 mg/dL (8.5-10.1); CREATININE 0.8 mg/dL (0.7-1.3); MAGNESIUM 1.9 mg/dL (1.8-2.4); POTASSIUM 3.7 mmol/L (3.5-5.1)
[2020-12-29 07:26] VITALS: BP 125/78
--- NOTE | 2020-12-29 12:18 | NUR ---
Diet as per dietitian is regular.
--- NOTE | 2020-12-29 13:32 | NUR ---
PT ADMITTED RELATED TO PT ADMITTED RELATED TO CERVICAL STRAIN, UTI, AND DECUBITUS ULCERS. CM REVEIWED CHART AND SPOKE WITH CARE TEAM. CM MET WITH PT AT BEDSIDE THIS DAY. PT IS FAMILIAR TO CM FROM PREVIOUS ADMISSIONS. PT HAD DISCHARGED HOME NOVEMBER 20. PT INDICATED HE RESIDES IN A HOUSE WITH HIS MOTHER AND SISTER. PT INDICATED HE HAD A MANUAL WC AND AN ELECTRIC WC FOR HOME USE. 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 PT INDICATED HE HAS A LIFT DEVICE BUT THAT IT DOESN'T WORK WELL. PT CONFIRMED THAT HE HAD GONE SKILLED TO [facility] IN AUGUST. DURING LAST ADMISSION PT HAD BEEN ACCEPTED FOR ADMISSION TO [facility] AND THEN LAST MIN PT AND FAMILY DECIDED TO DC HOME INSTEAD. PT HAD BEEN ON SERVICE [facility] NEUROUROLOGIST. CM ASKED PT IF HE WAS RECEPTIVE TO POST ACUTE CARE STAY UPON DC THIS TIME AND PT INDICATED HE NEEDED TO SPEAK TO THE DOCTOR AND HIS FAMILY BEFORE HE DECIDES. CM ASKED IF REFERRAL COULD BE SENT TO [facility] THEY HAD ACCEPTED PT BEFORE AND PT ASKED THAT CM WAIT TO SEND ANY INFO. CM FOLLOWING REGARDING DC PLANNING. PT IS ON DAILY IV CEFTRIAXONE. NO SKILLABLE PT OR OT NEEDS IDENTIFIED.
[2020-12-29 15:57] VITALS: BP 115/73
--- NOTE | 2020-12-29 19:10 | NUR ---
Assumed pt care this am, VS stable. Pt is bed bound requires frequent visits due to needs. Wound care team involved, dermatitis noted all mostly on his back side. Did not have a BM for this shift, last BM was 12/27. Fc in place, draining couldy tea colored urine. POC followed, pain is managed with medications partial relief is noted. Awaiting stool sample. Endorsed to the night nurse.
[2020-12-29 19:11] VITALS: BP 127/75
--- NOTE | 2020-12-30 03:05 | NUR ---
ASSUMED PT CARE AT 1930. PT IS ALERT AND ORIENTED X4. PT C/O PAIN TO BLE WHICH WAS MANAGED BY PAIN MEDS. PT HAS YOUSUF WRAPPINGS TO BLE WHICH ARE DRY AND INTACT WITH NO DRAINAGE. PT REFUSED Q2HRS TURNS. PER PT" IT IS UNCOMFORTABLE" PT HAS RAO. TOLERATING ROOM AIR. PT DID NOT HAVE BM ON THIS SHIFT; STILL PENDING STOOL SAMPLE. FALL PREACAUTIONS IN PLACE. WILL CONTINUE TO MONITOR
[2020-12-30 07:15] VITALS: BP 107/62
--- NOTE | 2020-12-30 13:19 | NUR ---
Nutrition: pt admitted with diarrhea, neck pain, UTI, recurrent encephalopathy. PMH: Parkinsons, PVD, PAD, CHF, GERD, chronic gluteal wounds listed as stage 2 last month by wound care. Also BLE vascular wounds. Pt has difficulty with dexterity and finger foods are ordered. Would recommend assist with meals as needed. Eats fairly well, 50-75% of meals recorded so far and no weight loss, rather gain over time. BMI 41, extreme class 3 obesity. Pt will drink ensure-will offer ensure max BID. Reinforced nutrition/protein needs. Place as low risk with interventions in place.
[2020-12-30 16:35] VITALS: BP 113/78
[2020-12-30 19:40] VITALS: BP 118/69
--- NOTE | 2020-12-30 19:46 | NUR ---
Assumed pt care this am vs stable, complete bed bath given hernandez care done. Very needy pt would call out constantly even after needs have been met. Wound care done. Diet and medications tolerated. POC follwed, fc in place draining cloudy urine. Pain is managed with medications, when offered q2 turns wound refused and if able to he would ask to be placed back since the repositioning is "uncomfortable". sisters at the bedside. Endorsed to the night nurse.
--- NOTE | 2020-12-30 23:19 | NUR ---
PT HAS BEEN SITTING UP EATING SNACKS TONIGHT WHILE WATCHING HIS TV PROGRAMS. HE REFUSES TO ALLOW A TURN UP TO THIS TIME TONIGHT. HE SPOKE ON THE PHONE WITH HIS MOTHER AND IS, ENJOYING EATING HIS SNACKS FROM HOME.
--- NOTE | 2020-12-31 04:00 | NUR ---
pt is very weak and needs assist with having all of his items close by. he is able to feed himself some cookies or chips. encouraged turns q2 hours. he is more cooperative this morning. continues on iv antibiotics. wound to buttocks needs attention to care, barrier cream applied, and chux pad under him changed. continues in isolation, contact.
[2020-12-31 07:47] VITALS: BP 113/76
[2020-12-31 15:40] VITALS: BP 116/78
--- NOTE | 2020-12-31 16:39 | NUR ---
Patient has not had a BM today-miralax given. Stool sample still needs to be collected. ABT Ceftazidime given, tolerated well, no adverse effects noted. Patient will sometime yell out for help and educated about using call button. Reyes patent and draining well- urine dark yellow.
[2020-12-31 19:20] VITALS: BP 133/80
--- NOTE | 2021-01-01 01:54 | NUR ---
ASSUMED PT AT 1920. PT ALERT AND ORIENTED X4. PT WOUND DRSG ON THE FEET DRY AND INTACT. PT COMPLAINED PAIN TO THE SACRUM WHICH WAS MANAGED BY PAIN MED. PT TOLERATING RA. PT CAN BE NEEDY AT TIMES AND CAN SOMETIMES BE INDECISIVE ON WHETHER OR NOT WANTS TO BE TURNED. PT DID NOT EXPRESS ANY CONCERNS AND NO VISIBLE SIGN OF DISTRESS NOTED. FALL PRECAUTIONS WITH CALL LIGHT WITHIN REACH.
[2021-01-01 07:37] VITALS: BP 118/80
[2021-01-01 10:57] LABS: HEMATOCRIT 35.2 % (42.0-52.0); HEMOGLOBIN 11.3 gm/dL (14.0-18.0); MCH 27.1 pg (26.0-34.0); MCHC 32.2 g/dL (28.0-37.0); MCV 84.2 fL (80.0-100.0); RBC 4.17 mil/uL (4.50-6.00); RDW 16.3 % (10.5-14.5); WBC 6.7 thou/uL (4.0-11.0)
[2021-01-01 11:10] LABS: CALCIUM 8.5 mg/dL (8.5-10.1); CREATININE 0.9 mg/dL (0.7-1.3); POTASSIUM 3.4 mmol/L (3.5-5.1)
[2021-01-01 15:05] VITALS: BP 121/87
--- NOTE | 2021-01-01 16:32 | NUR ---
Today is the patients birthday and his sisters came to visit him. Tolerated IV cefazidime well- no adverse effects noted. Able to feed himself with set up. Pain medication given per schedule.
[2021-01-01 20:05] VITALS: BP 140/83
--- NOTE | 2021-01-01 23:53 | NUR ---
ASSISTED WITH PT CARE. PT IS AOX3 AND LETS NEEDS BE KNOWN. FALL PRECAUTION IN PLACE. PT TURNED Q2H. BARRIER CREAM APPLIED ON BACK AND BUTTOCKS. PT REPORTED PAIN; SECHDULED PAIN MEDS PROVIDED. PT IS ON LASIX BUT LIKES PO FLUID INTAKE. PT MAY NEED FLUID RESTRICTION. VSS AND NO S/S OF ACUTE DISTRESS. WILL CONTINUE TO MONITOR.
[2021-01-02 01:51] LABS: URINE BILIRUBIN NEGATIVE (Negative); URINE BLOOD 1+ (Negative); URINE CLARITY CLEAR; URINE COLOR YELLOW; URINE GLUCOSE-RANDOM* NEGATIVE (Negative); URINE KETONES NEGATIVE (Negative); URINE LEUKOCYTES 2+ (Negative); URINE NITRITE POSITIVE (Negative); URINE PROTEIN (DIPSTICK) NEGATIVE (Negative); URINE SPECIFIC GRAVITY 1.025 (1.005-1.035); URINE UROBILINOGEN 0.2 E.U./dl (0.2-1.0)
[2021-01-02 02:15] LABS: CRYSTALS None Seen /LPF (None Seen); HYALINE CASTS 4-10 Moderate /LPF (None Seen); MUCUS 4-6 Moderate strn/LPF (None Seen); SQUAMOUS 4-10 Moderate /LPF (0-3); URINE RBC 1-2 Rare /HPF (NONE SEEN); URINE WBC 6-15 Few /HPF (NONE SEEN)
[2021-01-02 07:27] VITALS: BP 141/92
--- NOTE | 2021-01-02 13:31 | NUR ---
CM FOLLOWED UP WITH PT AT BEDSIDE THIS DAY. CM ASKED PT ABOUT PREFERENCE FOR HOME WITH [facility] VS. SHORT TERM SKILLED REHAB STAY. IT SEEMS LIKE PT IS RECEPTIVE TO SKILLED UPON DC. PT DOESN'T KNOW WHERE HE WANTS TO GO. DOESN'T WANT TO GO TO [facility] WHO HAD ACCEPTED HIM BEFORE THEY HAD SOME BAD REVIEWS. CM PROVIDED SNF LIST FOR REVIEW. CM CALLED AND SPOKE WITH PT'S SISTER LOLA. SHE INDICATED THAT SISTER SARA WOULD CALL CM WITH NAMES OF SOME OTHER FACILITIES THEY WERE BE RECEPTIVE TO LOOKING AT AND THAT SHE OR SARA WOULD BE BY THIS AFTERNOON/EVENING TO LOOK AT LIST WITH PT. THEY WERE OK WITH REFERRAL BEING SENT TO [facility]. REFERRAL FAXED. CM FOLLOWING REGARDING PLACEMENT.
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
[2021-01-02 15:05] VITALS: BP 118/65
--- NOTE | 2021-01-02 15:41 | NUR ---
ASSUMED CARE OF PATIENT AT SHIFT CHANGE. ASSESSMENT CHARTED. MEDS ADMINISTERED PER EMAR; 2-3 AT A TIME WITH A SPOON & SIPS OF WATER. VOICES PAIN AT 4/10 RELIEVED BY SCHEDULED MEDICATION. NOTED BLEEDING ON "CRACKS" OF SACRAL AREA. PROVIDER NOTIFIED; WOUND CARE CONSULTED, SEE NEW ORDERS. PATIENT SKIN STILL EDEMATOUS AND WEEPING. CLEANSED AND USING ZGUARD/AMMONIUM LACTATE NEEDED AND PER ORDER. FREQUENT REPOSITIONING COMPLETED Q2HRS AND PER PATIENT REQUEST. TOLERATING PO INTAKE WELL W NO ISSUES. PATIENT STATES "FEELING BETTER" AND FEELS GOOD ABOUT DISCHARGING SOON IF PROVIDERS BELIVE SO. NO FURTHER ISSUES NOTED/VOICED. FALL PRECAUTIONS REMAIN IN PLACE. CONTINUING FREQUENT MONITORING THROUGHOUT SHIFT.
[2021-01-02 20:00] VITALS: BP 149/97
--- NOTE | 2021-01-03 03:01 | NUR ---
PT CARE ASSUMED WITH PT WATCHING TV AT 1900.PT IS A/O X4.PT IS ON BEDREST AND HAS A RAO CATHETER IN PLACE.PT TAKE MEDS WHOLE WITH NO ISSUES NOTED.PT HAS SCHEDULE PAIN MEDICINES FOR PAIN MANAGEMENT.PT HAS MULTIPLE WOUNDS TO BE DONE WITH WOUND CLEANSER AND DRY TO AIR.PT IS Q2H REPOSITION AND PRN WHEN PT DEMANDS.IV ACCESS ON RT AC SL.WILL CONTINUE TO MONITOR
[2021-01-03 08:39] VITALS: BP 109/68
[2021-01-03 10:36] LABS: HEMATOCRIT 36.4 % (42.0-52.0); HEMOGLOBIN 11.6 gm/dL (14.0-18.0); MCH 26.8 pg (26.0-34.0); MCHC 31.7 g/dL (28.0-37.0); MCV 84.3 fL (80.0-100.0); RBC 4.32 mil/uL (4.50-6.00); WBC 5.3 thou/uL (4.0-11.0)
[2021-01-03 10:55] LABS: CALCIUM 8.7 mg/dL (8.5-10.1); CREATININE 0.9 mg/dL (0.7-1.3); MAGNESIUM 1.8 mg/dL (1.8-2.4); POTASSIUM 3.7 mmol/L (3.5-5.1)
--- NOTE | 2021-01-03 11:59 | NUR ---
HOSEA MET WITH PT THIS AM AND THEN CALLED PT'S SISTER LOLA. SHE INDICATE THAT DR. GARCIA INDICATED HE HAD A FEW FACILITIES HE RECOMMENDED ALONG WITH WC. [facility] FAXED REFERRALS TO [facility], [facility], AND [facility]. [facility]SEA SPOKE WITH PT'S SISTER WILLI AND SHE INDICATED SHE DIDN'T THINK THEY WOULD BE OK WIHT PT GOING TO A [facility]. SHE WILL CALL CM BACK IF SHE THINKS OF ANY OTHER PLACES THEY WANT REFERRALS SENT. SHE ASKED THAT CM SEND REFERRAL TO [facility]. [facility] TOSROBERTO.
[2021-01-03 14:07] VITALS: BP 119/72
[2021-01-03 21:02] VITALS: BP 135/81
--- NOTE | 2021-01-04 04:06 | NUR ---
ASSUMED PT [id number]. PT IS ALERT AND OREINTED X4. PT TAKES MEDS WHOLE. PT HAS YOUSUF WRAPPING ON BLE. DRSG IS INTACT WITH NO DRAINAGE. PT C/O PAIN TO BLE WHICH IS MANAGED BY SCHEDULED PAIN MEDS. PT IS TOLERATING RA. PT DID NOT HAVE BM ON THIS SHIFT. FALL PRECAUTIONS IN PLACE WITH CALL LIGHT WITHIN REACH. WILL CONTINUE TO MONITOR.
[2021-01-04 07:38] VITALS: BP 122/81
--- NOTE | 2021-01-04 13:54 | NUR ---
PT WAS SWITCHED TO CEFTRAZIDIME(AVYCAZ) Q8 VIA IV. HOSPITALIST CONSULTED ID TODAY DR. BELLE. CM FAXED CLINICAL UPDATE TO [facility] THEY HAVE ACCEPTED PT FOR ADMISSION. AWAITING ID CONSULT. FAMILY AND FACIILTY ARE AWARE. CM FOLLOWING REGARDING DC PLANNING.
--- NOTE | 2021-01-04 14:21 | NUR ---
PT IS A&O*4 WITH APHASIA. CONTACT ISDOLATION FOR MRSA. BED REST DUE TO IMMOBILITY. Q2 TURN PATIENTS AND PATIENTS REFUSED TWO TIMES TURNING SIDES. BED BATH PROVIDED AND DRESSING CHANGED FOR BOTTOM WOUNDS AND BLITERAL LEGS PER ORDER. BOTTOM WOUND IS OPEN WOUND, BLEEDING FOUND DURING DRESSING CHANGE. WOUNDS' PICS TOOK AND PRINTED IN THE CHART. WILL REFORCE FALL RISK AND WOUND CARE EDUCATION WITH PATIENT. BED ALARM IS ON AND CALL LIGHT BE SIDE OF PT. WILL KEEP MONITOR PATIENT'S SAFETY.
[2021-01-04 15:45] VITALS: BP 118/73
[2021-01-04 19:34] VITALS: BP 116/75
--- NOTE | 2021-01-05 02:00 | NUR ---
ASSUMED PT CARE AT 1900.PT IS ALERT AND ORIENTED X4. PT HAS RAO IN PLACE. PT HAS YOUSUF WRAPPING ON BLE WHICH IS DRY AND INTACT AND DOES NOT HAVE ANY DRAINAGE.PT DID NOT HAVE BM ON THIS SHIFT. PT CAN BE NON-COMPLIANT WITH Q2HR TURN. PT TAKES MEDS WHOLE WITH THE USE OF SPOON. PT PAIN MANAGED BY SCHEDULED PAIN MEDS. PT USES CALL LIGHT TO VERBALIZE NEEDS NEEDED, PT TOLERATING RA. FALL PRECAUTIONS IN PLACE WITH CALL LIGHT WITHIN REACH. WILL CONTINUE TO MONITOR.
[2021-01-05 07:51] VITALS: BP 139/97
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
--- NOTE | 2021-01-05 15:25 | NUR ---
VAT CONSULTED FOR PICC LINE. PT'S LABS,MEDS,HX,ORDER AND CONSENT VERIFIED. ANAHY GUILLEN WAS WIDELY PATENT WITH USG, MEASURED 29% 4FR SL POWER PICC TRIMMED TO 38CM INSERTED X1 STICK TO 1CM EXTERNAL. PLACEMENT CONFIRMED WITH PEAKED P-WAVES ON 3CG. PICC RELEASED FOR IMMEDIATE USE PER PROTOCOL. PT TOLERATED WELL.
[2021-01-05] MEDS ORDERED: LASIX 40 MG TAB40 M1 PO (17:03)
[2021-01-05] MEDS ORDERED: FLORANEX GRANU1 EACH PO (17:03)
[2021-01-05] MEDS ORDERED: ACETAMINOPHEN325 M1 PO (17:03)
[2021-01-05] MEDS ORDERED: AMMONIUM LACTA226 GM TOP (17:03)
[2021-01-05] MEDS ORDERED: AVYCAZ 2 GM-0.2.5 GM IV (17:03)
--- NOTE | 2021-01-05 17:18 | NUR ---
PT ALERT AND ORIENTED TIMES FOUR WITH PERIODS OF CONFUSION. VSS, RAO TO DD. SCHEDULED PAIN MEDICATION CONTROLS PAIN WELL. PHYSICAL THEARPY CHANGED BLE DRESSING TODAY. PT TOLERATES MEDS AND MEALS. PT SISTER AT BEDSIDE FOR MOST OF THE DAY. PLANS FOR PT TO DISCHARGE TO [facility] TODAY AT 1800. WILL CONTINUE TO MONITOR.
== END 2021-01-05 18:36 | DRG 689 ==
LOC: ER 07:12 → EROBS 10:30 → 4W 10:30
PROVIDERS: Emergency Medicine; ADMIT Internal Medicine; ATTEND Internal Medicine
PROC: 05HY33Z Insertion of Infusion Device into Upper Vein, Percutaneous Approach (ICD-10-PCS; principal; 2021-01-05)
DX: N39.0 Urinary tract infection, site not specified (principal); E43 Unspecified severe protein-calorie malnutrition; G92 Toxic encephalopathy; I42.9 Cardiomyopathy, unspecified; I50.32 Chronic diastolic (congestive) heart failure; Z68.41 Body mass index [BMI] 40.0-44.9, adult; Z20.822 Contact with and (suspected) exposure to COVID-19; K21.9 Gastro-esophageal reflux disease without esophagitis; I73.9 Peripheral vascular disease, unspecified; S16.1XXA Strain of muscle, fascia and tendon at neck level, initial encounter; G89.4 Chronic pain syndrome; I87.2 Venous insufficiency (chronic) (peripheral); I89.0 Lymphedema, not elsewhere classified; G20 Parkinson's disease; R53.81 Other malaise; L89.159 Pressure ulcer of sacral region, unspecified stage; L89.209 Pressure ulcer of unspecified hip, unspecified stage; B96.5 Pseudomonas (aeruginosa) (mallei) (pseudomallei) as the cause of diseases classified elsewhere; Z66 Do not resuscitate; Z51.5 Encounter for palliative care; Z79.899 Other long term (current) drug therapy; Z95.820 Peripheral vascular angioplasty status with implants and grafts; Z86.14 Personal history of Methicillin resistant Staphylococcus aureus infection; Z88.6 Allergy status to analgesic agent; X58.XXXA Exposure to other specified factors, initial encounter; Y93.89 Activity, other specified; Y92.89 Other specified places as the place of occurrence of the external cause; Y99.8 Other external cause status; Z79.891 Long term (current) use of opiate analgesic; Z74.01 Bed confinement status
CPT/HCPCS: 10040; 27000

== ENCOUNTER → 2021-06-07 | Outpatient (CLI) | payer OTHER ==
[~2021-06-07] MED LIST changes: +ACETAMINOPHEN325 M1 PO; +AMMONIUM LACTA226 GM TOP; +AVYCAZ 2 GM-0.2.5 GM IV; +FLORANEX GRANU1 EACH PO
[2021-06-07 13:22] VITALS: BP 102/72
--- NOTE | 2021-06-07 13:22 | NUR ---
Pain Clinic Assessment: 1. History of Osteoarthritis: NO History of Rheumatoid Arthritis: NO 2. Height: ft. in. cm. Weight: lb. oz. kg. Patient's BMI: 3. Vital Signs: BP: 102/72 Pulse: 92 Resp: 20 Temp: 02 Sat: 99 ECG Mon: 4. Pain Intensity: 8 5. Fall Risk: Dizziness: N Needs help standing or walking: Y Fallen in the last 3 months: N Fall risk comments: 6. Patient on Blood Thinner: None 7. History of Hypertension: Y 8. Opioid Therapy greater than 6 weeks: Y Opiate Contract Signed: 12/08/15 9. Risk Assessment Tool Provided: 0 LOW RISK 10. Functional Assessment Tool: 11. Recreational Drug Use: Never Drug Type: Tobacco Use: Never Smoker Tobacco Type: Amount or Packs/day: How Many Years: Alcohol Use: Past use Frequency: Quant:
== END ==
LOC: PAIN 11-25 07:03
PROVIDERS: ATTEND Clinical Nurse Specialist Adult Health
DX: M79.641 Pain in right hand (principal); M79.604 Pain in right leg; M79.651 Pain in right thigh; I89.0 Lymphedema, not elsewhere classified; Z88.8 Allergy status to other drugs, medicaments and biological substances; Z79.899 Other long term (current) drug therapy; Z86.69 Personal history of other diseases of the nervous system and sense organs